=== PATIENT | female | born 1940 | race Caucasian/White ===

== ENCOUNTER 2016-09-02 06:23 | Inpatient (IN) ==
[2016-09-02] MEDS ORDERED: GI Cocktail 40 ML EACH PO ONE (06:32)
[2016-09-02 08:04] LABS: Hemoglobin 9.5 g/dL (11.5-15.4); Red Blood Count 3.17 M/mcL (3.82-4.97)
[2016-09-02 08:06] LABS: Basophils % 0.2 %; Eosinophils # 0.1 K/mcL (0.0-0.6); Eosinophils % 2.2 %; Hematocrit 29.6 % (35.3-44.9); Immature Granulocytes % 0.7 % (0-4); Immature Platelets 1.7 % (1.1-6.1); Lymphocytes # 0.8 K/mcL (0.6-4.6); Lymphocytes % 19.1 %; Mean Corpuscular HGB Conc 32.1 g/dL (31.6-35.5); Mean Corpuscular Volume 93.4 fL (83.0-100.0); Mean Platelet Volume 13.2 fL (9.4-12.4); Monocytes # 0.2 K/mcL (0.0-1.3); Monocytes % 5.5 %; Platelet Count 112 K/mcL (140-400); Red Cell Distribution Width 17.4 % (11.5-14.5); Segmented Neutrophils % 72.3 %
[2016-09-02 08:09] LABS: INR 1.1; Prothrombin Time 11.7 Seconds (9.4-12.1)
[2016-09-02] MEDS ORDERED: 0.9 % Sodium Chloride 1,000 ML IVC ONE ×2 (08:09→09:38)
[2016-09-02 08:11] LABS: Activated Partial Thrombo Time 30.7 Seconds (26.0-36.0)
[2016-09-02 08:19] LABS: Alanine Aminotransferase 20 Units/L (0-55); Albumin 3.3 g/dL (3.5-5.0); Albumin/Globulin Ratio 0.9 (1.1-2.2); Alkaline Phosphatase 83 Units/L (38-126); Amylase 2254 Units/L (25-125); Aspartate Amino Transferase 25 Units/L (5-34); BUN/Creatinine Ratio 30 (6-26); Bilirubin,Direct 0.2 mg/dL (0.0-0.5); Bilirubin,Indirect 0.3 mg/dL (0.0-1.2); Bilirubin,Total 0.5 mg/dL (0.2-1.2); Blood Urea Nitrogen 22 mg/dL (7-20); Calcium 9.3 mg/dL (8.6-10.8); Carbon Dioxide 26 mEq/L (19-29); Chloride 105 mEq/L (98-109); Globulin 3.8 g/dL (2.4-3.5); Glucose 114 mg/dL (70-99); Osmolality,Calculated 290 (280-300); Sodium 138 mEq/L (136-145); Total Protein 7.1 g/dL (6.0-8.3); eGFR For African Americans > 60 (> 60); eGFR For Non-African Americans > 60 (> 60)
--- NOTE | 2016-09-02 08:32 | Emergency Department Note ---
Disposition Clinical Impression: Pancreatitis, Abdominal pain Disposition: Admitted As Inpatient Condition: Fair Time of Disposition: 09:57 Abdominal Pain HPI - General Chief Complaint: ED Abdominal Pain Stated Complaint: epigastric pain Time Seen by Provider: 09/02/16 06:30 Source: patient Mode of arrival: private vehicle Limitations: no limitations Nursing Notes Reviewed: Yes Vital Signs Reviewed: Yes - History of Present Illness HPI Narrative: 75-year-old female patient presents to the emergency department complaining of epigastric abdominal pain. Patient states this began around midnight. She denies any new foods. She denies any fever, chills, nausea or vomiting. Patient has not had any similar episodes in the past. She denies any drug, alcohol or smoking. She denies any trauma. She denies any chest pain or back pain. She denies any malaise or dizziness or lightheadedness. Pt Subjective Complaint: abdominal pain Onset (ago): hour(s) Consistency: constant, Worsening Location: epigastric Pain Severity: moderate Pain Scale: 5 Quality: aching Radiation: none Migration to: no migration Improves with: nothing Worsens with: nothing Associated symptoms: Reports: denies other symptoms Treatments prior to arrival: none - Related Data Home Medications Medication Instructions Recorded Confirmed Ergocalciferol (VITAMIN D2) 50,000 unit PO QWEEK 09/02/16 09/02/16 [Vitamin D2] Ferrous Sulfate [Iron] 325 mg PO DAILY 09/02/16 09/02/16 Folic Acid 1 mg PO DAILY 09/02/16 09/02/16 HYDROcodone/Acet 5/325 mg [Welda 1 tab PO Q6H PRN 09/02/16 09/02/16 5-325 mg] Methotrexate [Otrexup] 15 mg PO QWEEK 09/02/16 09/02/16 Naproxen [Naprosyn] 500 mg PO BID 09/02/16 09/02/16 Pantoprazole Sodium [Pantoprazole 40 mg PO DAILY 09/02/16 09/02/16 Sodium] Allergies Allergy/AdvReac Type Severity Reaction Status Date / Time Sulfa (Sulfonamide AdvReac Rash Verified 09/02/16 10:43 Antibiotics) All systems ED: reviewed and negative except as stated. Constitutional: Denies: fever, chills Cardiovascular: Denies: chest pain, palpitations Respiratory: Denies: cough, dyspnea Gastrointestinal: Reports: abdominal pain. Denies: nausea, vomiting Genitourinary: Denies: urgency, dysuria, frequency Musculoskeletal: Denies: back pain, neck pain Integumentary: Denies: rash, abrasion, lesions Neurological: Denies: headache Abdominal Pain PMH - Past Medical History Medical history: Reports: arthritis Female Surgical History: Reports: appendectomy Psychiatric history: Reports: no psych history - Social History Smoking status: Never smoker Alcohol use: Reports: none Drug use: Reports: none Physical Exam - General Limitations: no limitations General appearance: alert, in no apparent distress - Head Head exam: atraumatic, normocephalic, normal inspection - Eye Eye exam: Present: normal appearance, PERRL - Neck Neck exam: Present: normal inspection, full ROM, trachea midline - Chest Chest inspection: Present: normal inspection, symmetric chest wall rise - Respiratory Respiratory exam: Present: normal lung sounds bilaterally. Absent: respiratory distress - Cardiovascular Cardiovascular exam: Present: regular rate, normal rhythm, normal heart sounds - Abdominal Exam Abdominal exam: Present: soft, tenderness. Absent: distention, guarding, rebound, rigidity Abdominal tenderness: Present: diffuse, mild - Extremities Exam Extremities exam: Present: normal inspection, full ROM. Absent: tenderness, pedal edema - Expanded Lower Extremity Exam Gait: observed and normal - Back Exam Back exam: Present: normal inspection, full ROM. Absent: tenderness - Neurological Exam Neurological exam: Present: alert, oriented X3 - Psychiatric Psychiatric exam: Present: normal affect, normal mood - Skin Skin exam: Present: warm, dry, intact, normal color Course - Consultations Consultation #1: I discussed this patient's case with the hospitalist, she accepts. Patient resting comfortably in no acute distress. Will be admitted for pancreatitis. Time: 10:34 Vital Signs Temperature 98.1 F 09/02/16 06:24 Pulse Rate 86 09/02/16 06:24 Respiratory Rate 16 09/02/16 06:24 Blood Pressure 177/79 09/02/16 06:24 O2 Sat by Pulse Oximetry 97 09/02/16 06:24 Temperature 97.7 F 09/02/16 11:11 Pulse Rate 73 09/02/16 11:11 Respiratory Rate 16 09/02/16 11:11 Blood Pressure 164/50 09/02/16 11:11 O2 Sat by Pulse Oximetry 98 09/02/16 11:11 Oxygen Delivery Oxygen Delivery Room Air Abdominal Pain - Lab Data Lab results reviewed: Yes I reviewed the patient's lab results. Result diagrams: 09/02/16 07:53 09/02/16 07:53 Lab Results 09/02/16 09/02/16 09/02/16 Range/Units 07:53 07:53 07:53 WBC 4.2 L (4.3-11.1) K/mcL RBC 3.17 L (3.82-4.97) M/mcL Hgb 9.5 L (11.5-15.4) g/dL Hct 29.6 L (35.3-44.9) % MCV 93.4 (83.0-100.0) fL MCH 30.0 (28.0-33.3) pg MCHC 32.1 (31.6-35.5) g/dL RDW 17.4 H (11.5-14.5) % Plt Count 112 L (140-400) K/mcL MPV 13.2 H (9.4-12.4) fL Immature Gran % 0.7 (0-4) % Seg Neutrophils % 72.3 % Lymphocytes % 19.1 % Monocytes % 5.5 % Eosinophils % 2.2 % Basophils % 0.2 % Neutrophils # 3.0 (1.6-8.9) K/mcL Lymphocytes # 0.8 (0.6-4.6) K/mcL Monocytes # 0.2 (0.0-1.3) K/mcL Eosinophils # 0.1 (0.0-0.6) K/mcL Basophils # 0.0 (0.0-0.2) K/mcL Immature Plt Fraction 1.7 (1.1-6.1) % PT 11.7 (9.4-12.1) Seconds INR 1.1 APTT 30.7 (26.0-36.0) Seconds Sodium 138 (136-145) mEq/L Potassium 4.0 (3.5-4.5) mEq/L Chloride 105 (98-109) mEq/L Carbon Dioxide 26 (19-29) mEq/L BUN 22 H (7-20) mg/dL Creatinine 0.73 (0.57-1.11) mg/dL Est GFR ( Amer) > 60 (> 60) Est GFR (Non-Af Amer) > 60 (> 60) BUN/Creatinine Ratio 30 H (6-26) Glucose 114 H (70-99) mg/dL Calculated Osmolality 290 (280-300) Calcium 9.3 (8.6-10.8) mg/dL Total Bilirubin 0.5 (0.2-1.2) mg/dL Direct Bilirubin 0.2 (0.0-0.5) mg/dL Indirect Bilirubin 0.3 (0.0-1.2) mg/dL AST 25 (5-34) Units/L ALT 20 (0-55) Units/L Alkaline Phosphatase 83 (38-126) Units/L Troponin I (0-0.03) ng/mL Serum Total Protein 7.1 (6.0-8.3) g/dL Albumin 3.3 L (3.5-5.0) g/dL Globulin 3.8 H (2.4-3.5) g/dL Albumin/Globulin Ratio 0.9 L (1.1-2.2) Amylase 2254 H (25-125) Units/L Lipase 47545 H (8-78) Units/L Urine Color (Yellow) Urine Clarity (Clear) Urine pH (5.0-8.0) pH Units Ur Specific [place] (1.010-1.025) Urine Protein (Neg-Trace) mg/dL Urine Glucose (UA) (Normal) mg/dL Urine Ketones (Negative) mg/dL Urine Blood (Negative) Urine Nitrite (Negative) Urine Bilirubin (Negative) Urine Urobilinogen (Normal) mg/dL Ur Leukocyte Esterase (Negative) Urine Microscopic RBC (0-3) per hpf Urine Microscopic WBC (0-3) per hpf Ur Squamous Epith Cells (None-Few) per lpf Urine Bacteria (None-Few) per hpf Hyaline Casts (None-Few) per lpf Ur Culture Indicated? (NO) 09/02/16 09/02/16 Range/Units 07:53 09:15 WBC (4.3-11.1) K/mcL RBC (3.82-4.97) M/mcL Hgb (11.5-15.4) g/dL Hct (35.3-44.9) % MCV (83.0-100.0) fL MCH (28.0-33.3) pg MCHC (31.6-35.5) g/dL RDW (11.5-14.5) % Plt Count (140-400) K/mcL MPV (9.4-12.4) fL Immature Gran % (0-4) % Seg Neutrophils % % Lymphocytes % % Monocytes % % Eosinophils % % Basophils % % Neutrophils # (1.6-8.9) K/mcL Lymphocytes # (0.6-4.6) K/mcL Monocytes # (0.0-1.3) K/mcL Eosinophils # (0.0-0.6) K/mcL Basophils # (0.0-0.2) K/mcL Immature Plt Fraction (1.1-6.1) % PT (9.4-12.1) Seconds INR APTT (26.0-36.0) Seconds Sodium (136-145) mEq/L Potassium (3.5-4.5) mEq/L Chloride (98-109) mEq/L Carbon Dioxide (19-29) mEq/L BUN (7-20) mg/dL Creatinine (0.57-1.11) mg/dL Est GFR ( Amer) (> 60) Est GFR (Non-Af Amer) (> 60) BUN/Creatinine Ratio (6-26) Glucose (70-99) mg/dL Calculated Osmolality (280-300) Calcium (8.6-10.8) mg/dL Total Bilirubin (0.2-1.2) mg/dL Direct Bilirubin (0.0-0.5) mg/dL Indirect Bilirubin (0.0-1.2) mg/dL AST (5-34) Units/L ALT (0-55) Units/L Alkaline Phosphatase (38-126) Units/L Troponin I 0.00 (0-0.03) ng/mL Serum Total Protein (6.0-8.3) g/dL Albumin (3.5-5.0) g/dL Globulin (2.4-3.5) g/dL Albumin/Globulin Ratio (1.1-2.2) Amylase (25-125) Units/L Lipase (8-78) Units/L Urine Color Yellow (Yellow) Urine Clarity Clear (Clear) Urine pH 7.5 (5.0-8.0) pH Units Ur Specific [place] 1.015 (1.010-1.025) Urine Protein Negative (Neg-Trace) mg/dL Urine Glucose (UA) Normal (Normal) mg/dL Urine Ketones Negative (Negative) mg/dL Urine Blood Trace H (Negative) Urine Nitrite Negative (Negative) Urine Bilirubin Negative (Negative) Urine Urobilinogen Normal (Normal) mg/dL Ur Leukocyte Esterase Negative (Negative) Urine Microscopic RBC 5-15 H (0-3) per hpf Urine Microscopic WBC 0-3 (0-3) per hpf Ur Squamous Epith Cells Moderate H (None-Few) per lpf Urine Bacteria None Seen (None-Few) per hpf Hyaline Casts None Seen (None-Few) per lpf Ur Culture Indicated? NO (NO) - Radiology Data Radiology results reviewed: Yes I reviewed the patient's radiology results. Attestation Statement - Attestation Attestation: Patient is a pleasant 75-year-old female who presents to the emergency Department today with complaints of moderate epigastric abdominal pain. Patient is also experiencing some nausea with this pain. Patient denies any chest pain, no migratory pain into the chest or lower abdomen, no bowel changes , no urinary symptoms or flank pain. Patient states she has had pancreatitis in the past and they have done extensive gallbladder testing and not found this to be contributing to her pancreatitis. She feels her last episode was maybe 4- 5 years ago. Exam she has mild tenderness to palpation in the epigastrium, no evidence of peritoneal signs, abdomen soft good bowel sounds. Remainder of exam appears unremarkable and patient is in no acute distress at bedside. We performed labs and obtain CT scan of the abdomen which showed changes consistent with acute pancreatitis, fluid collections were seen. We went ahead and initiated IV fluids, IV pain meds and antiemetics. At this time we are awaiting her lipase which is taking some considerable time to get back as we anticipate their rerunning it because the level is so high. Remainder of her hepatic panels within normal limits. I do not feel we need to repeat any additional gallbladder imaging emergently in the ER today based on her labs today. We will plan to admit the patient for further evaluation and treatment of her pancreatitis. Patient remained clinically stable throughout her ED course. I pesonally interviewed and examined this patient and my medical decision- making was reviewed with the KANU, Carmelo Fernandez. I agree with the documented findings, disposition and treatment plan as described except to the extent set forth below.
[2016-09-02] MEDS ORDERED: *HR* Morphine 2 MG/ML SYRINGE IV ONE (08:34)
[2016-09-02] MEDS ORDERED: Ondansetron 4 MG/2 ML VIAL IV ONE (08:34)
[2016-09-02 09:22] LABS: Lipase 13472 Units/L (8-78)
[2016-09-02 09:46] LABS: Bilirubin,Urine Negative (Negative); Blood,Urine Trace (Negative); Clarity,Urine Clear (Clear); Color,Urine Yellow (Yellow); Glucose,Urine (UA) Normal (Normal); Ketones,Urine Negative (Negative); Leukocyte Esterase,Urine Negative (Negative); Nitrite,Urine Negative (Negative); PH,Urine 7.5 pH Units (5.0-8.0); Protein,Urine Negative (Neg-Trace); Specific Gravity,Urine 1.015 (1.010-1.025); Urobilinogen,Urine Normal (Normal)
[2016-09-02 09:50] LABS: Bacteria,Urine None Seen per hpf (None-Few); Hyaline Casts,Urine None Seen per lpf (None-Few); Squamous Epithelial Cell,Urine Moderate per lpf (None-Few); WBC,Urine 0-3 per hpf (0-3)
--- NOTE | 2016-09-02 11:53 | Internal Med History&Physical ---
Date of Encounter: 09/02/16 Time of Encounter: 11:48 Assessment and Plan (1) Pancreatitis Current visit: Yes Status: Acute denies any abdominal pain at this time. abd CT shows pancreatic inflammation. will start conservative management, IVF , will advance diet as tolerated. pancreatitis ? from NSAIDS and methotrexate for her RA. lFTS appear to be normal, her CT abd also shows possible cholecystitis. will order GB US. Qualifiers: Chronicity: acute Pancreatitis type: unspecified pancreatitis type Acute pancreatitis complication: unspecified Qualified Code(s): K85.90 - Acute pancreatitis without necrosis or infection, unspecified (2) Rheumatoid arthritis Current visit: Yes Status: Acute follows with Dr. 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 Qualifiers: Rheumatoid arthritis location: multiple sites Rheumatoid factor presence: unspecified presence Qualified Code(s): M06.9 - Rheumatoid arthritis, unspecified (3) Abdominal pain Current visit: Yes Status: Resolved Qualifiers: Abdominal location: generalized Qualified Code(s): R10.84 - Generalized abdominal pain Internal Medicine - H&P: HPI Chief complaint: abdominal pain Admitted From: Home Plans for Post Hospital Care: Home History of present illness: Ms. Valenzuela is a 75 year old female with PMH rheumatoid arthritis who follows with Dr. Pena who presents to the emergency Department today with complaints of moderate epigastric abdominal pain. Patient is also experiencing some nausea with this pain. Patient denies any chest pain, no migratory pain into the chest or lower abdomen, no bowel changes, no urinary symptoms or flank pain. Patient states she has had pancreatitis in the past and they have done extensive gallbladder testing and not found this to be contributing to her pancreatitis. She feels her last episode was maybe 4-5 years ago. she denies any h/o alcohol intake, however she says she takes pain meds for her arthritis and she had a recent flare for which she had to take more pain meds. CT scan of the abdomen showed changes consistent with acute pancreatitis and possible cholecystitis. lipase elevated. Past Med Surg Social Fam HX - Past Medical History Medical history: GERD, kidney stones, migraine, RA, thyroid disease Psychiatric history: no psych history - Past Surgical History Surgical History: appendectomy, knee replacement - Social History Smoking Status: Former smoker Smokeless Tobacco Status: No Alcohol use: none Drug use: none - Family History Mother Family Member Ethnicity: Non- Living Status: Age at : 83 Cause of : heart related problems Hx Family Cardiac Disorders: Yes Hx Family Respiratory Disorders: No Hx Family Cancer: No Hx Family GI Disorders: No Hx Family Genitourinary Disorders: No Hx Family Endocrine Disorder: Yes (diabetes) Internal Medicine - H&P: Meds Ergocalciferol (VITAMIN D2) [Vitamin D2] 50,000 unit PO QWEEK 09/02/16 [History] Ferrous Sulfate [Iron] 325 mg PO DAILY 09/02/16 [History] Folic Acid 1 mg PO DAILY 09/02/16 [History] HYDROcodone/Acet 5/325 mg [Leopold 5-325 mg] 1 tab PO Q6H PRN 09/02/16 [History] Methotrexate [Otrexup] 15 mg PO QWEEK 09/02/16 [History] Naproxen [Naprosyn] 500 mg PO BID 09/02/16 [History] Pantoprazole Sodium [Pantoprazole Sodium] 40 mg PO DAILY 09/02/16 [History] Allergies Sulfa (Sulfonamide Antibiotics) Adverse Reaction (Verified 09/02/16 10:43) Rash All Systems PM: A 10-system review of systems was performed and is negative for pertinent findings except as documented above in the HPI. - Constitutional Vitals: Temp Pulse Resp BP Pulse Ox 97.7 F 73 16 164/50 98 09/02/16 11:11 09/02/16 11:11 09/02/16 11:11 09/02/16 11:11 09/02/16 11:11 General appearance: Present: A&O X 3, no acute distress Exam: neck- supple chest- b/l clear, no added sounds CVs-s1 and s2, no mr//g abd-soft, non tender, bs are present, no RUQ tenderness or noble's sign ext- no edema neuro- no focal defecits, alert and awake Internal Med - H&P Results - Labs CBC & Chem 7: 09/02/16 07:53 09/02/16 07:53
[2016-09-02] MEDS ORDERED: Ondansetron 4 MG/2 ML VIAL IVP PRN (12:04)
[2016-09-02] MEDS ORDERED: Naloxone 0.4 MG/ML INJ IVP PRN (12:04)
[2016-09-02] MEDS ORDERED: *HR* Morphine 2 MG/ML SYRINGE IVP PRN (12:04)
[2016-09-02] MEDS ORDERED: *HR* HYDROcodone/Acet 5/325 mg TABLET PO PRN (12:05)
[2016-09-02] MEDS: 0.9 % Sodium Chloride 1,000 ML IVC SCH ×2 (13:40→22:42)
[2016-09-02] MEDS: Pantoprazole 40 MG VIAL IVP SCH (14:33)
[2016-09-03 04:56] LABS: Basophils % 0.4 %; Eosinophils # 0.1 K/mcL (0.0-0.6); Eosinophils % 2.6 %; Hematocrit 26.1 % (35.3-44.9); Hemoglobin 8.4 g/dL (11.5-15.4); Immature Granulocytes % 0.4 % (0-4); Lymphocytes # 0.9 K/mcL (0.6-4.6); Lymphocytes % 38.5 %; Mean Corpuscular HGB Conc 32.2 g/dL (31.6-35.5); Mean Corpuscular Hemoglobin 30.5 pg (28.0-33.3); Mean Corpuscular Volume 94.9 fL (83.0-100.0); Mean Platelet Volume 8.2 fL (9.4-12.4); Monocytes # 0.1 K/mcL (0.0-1.3); Monocytes % 5.6 %; Neutrophils # 1.2 K/mcL (1.6-8.9); Red Blood Count 2.75 M/mcL (3.82-4.97); Red Cell Distribution Width 17.8 % (11.5-14.5); Segmented Neutrophils % 52.5 %
[2016-09-03 04:58] LABS: Platelet Count 73 K/mcL (140-400)
[2016-09-03] MEDS: *HR* Enoxaparin 40 MG/0.4 ML SYRINGE SQ SCH (05:11)
[2016-09-03 05:17] LABS: BUN/Creatinine Ratio 21 (6-26); Blood Urea Nitrogen 14 mg/dL (7-20); Calcium 8.2 mg/dL (8.6-10.8); Carbon Dioxide 24 mEq/L (19-29); Chloride 112 mEq/L (98-109); Glucose 82 mg/dL (70-99); Magnesium 1.6 mg/dL (1.6-2.6); Osmolality,Calculated 292 (280-300); Potassium 3.9 mEq/L (3.5-4.5); Sodium 141 mEq/L (136-145); eGFR For African Americans > 60 (> 60); eGFR For Non-African Americans > 60 (> 60)
[2016-09-03 05:26] LABS: Platelet Estimate Decreased (Normal)
[2016-09-03 05:27] LABS: Anisocytosis 1+ (Not Present)
[2016-09-03] MEDS ORDERED: *HR* Enoxaparin 30 MG/0.3 ML SYRINGE SQ SCH (06:00)
[2016-09-03] MEDS: 0.9 % Sodium Chloride 1,000 ML IVC SCH (07:00)
[2016-09-03 07:58] LABS: Amylase 600 Units/L (25-125); Chol/HDL Ratio 3.7 (0-4.9); Cholesterol 106 mg/dL (< 200); HDL Cholesterol 29 mg/dL (40-59); LDL Cholesterol,Calculated 62 mg/dL (0-99); Lipase 1017 Units/L (8-78); Triglycerides 76 mg/dL (< 150)
[2016-09-03] MEDS: Pantoprazole 40 MG VIAL IVP SCH (08:01)
[2016-09-03] MEDS: Folic Acid 1 MG TABLET PO SCH (08:01)
--- NOTE | 2016-09-03 10:35 | Internal Med Progress Note ---
Date of Encounter: 09/03/16 Time of Encounter: 09:00 - Assessment and plan (1) Pancreatitis Current Visit: Yes Status: Acute Assessment and plan: Acute pancreatitis with elevated lipase, amylase, CT imaging confirmed the inflammation in the pancreas. - Etiology is undetermined, US abd shows no cholelithiasis, patient is not alcoholic, TG is not high. - Patient had a similar pancreatitis 5 years ago. - Less likely medication induced that because patient just started MTX one year ago. - We will continue hydration, nothing by mouth, closely monitoring. Qualifiers: Chronicity: acute Pancreatitis type: unspecified pancreatitis type Acute pancreatitis complication: unspecified Qualified Code(s): K85.90 - Acute pancreatitis without necrosis or infection, unspecified (2) Acute cholecystitis Current Visit: Yes Status: Acute Assessment and plan: Acute cholecystitis without evidence of cholecystitis. - We will treat the patient with Cipro and Flagyl. - Keep nothing by mouth and IV fluid. - Closely monitor patient. (3) DVT prophylaxis Current Visit: Yes Status: Acute Assessment and plan: Lovenox subcutaneously (4) Abdominal pain Current Visit: Yes Status: Resolved Assessment and plan: Caused by acute pancreatitis and acute cholecystitis. Management as above. Qualifiers: Abdominal location: generalized Qualified Code(s): R10.84 - Generalized abdominal pain (5) Rheumatoid arthritis Current Visit: Yes Status: Acute Assessment and plan: Patient is following rheumatology as outpatient Qualifiers: Rheumatoid arthritis location: multiple sites Rheumatoid factor presence: unspecified presence Qualified Code(s): M06.9 - Rheumatoid arthritis, unspecified - Time Spent With Patient 25 - 35 minutes - Subjective Interval history: Patient is a 75-year-old female admitted for abdominal pain. Diagnosed as acute pancreatitis. Her past medical history is significant for kidney stones, RA, migraine, thyroid disease. Patient was seen and examined, she is awake, alert oriented 3. Complain less abdominal pain today. At the still tenderness on the right side. Us abdomen shows no evidence of cholelithiasis but acute cholecystitis. Will add antibiotic Cipro and Flagyl for cholecystitis. Continue nothing by mouth, IV fluids and closely monitoring. - Constitutional Vitals: Temp Pulse Resp BP Pulse Ox 98.0 F 82 18 141/66 97 09/03/16 07:55 09/03/16 07:55 09/03/16 07:55 09/03/16 07:55 09/03/16 07:55 General appearance: Present: A&O X 3, no acute distress - Head Head exam: Present: atraumatic, normocephalic - Eye Eye exam: Present: PERRL, conjuntiva pink, sclera anicteric Pupils: Present: PERRL - Neck Neck exam general surgery: Present: supple, trachea midline. Absent: lymphadenopathy - Respiratory Respiratory exam: Present: CTAB. Absent: accessory muscle use, rales, rhonchi, wheezes - Cardiovascular Cardiovascular exam: Present: RRR, +S1, +S2. Absent: diastolic murmur, gallop, rubs, systolic murmur - GI/Abdominal GI/Abdominal exam: Present: normal bowel sounds, rebound, soft, tenderness (RUQ) , no peritoneal signs. Absent: distended - Extremities Exam Extremities exam: Present: warm, radial pulses palpable and symetrical. Absent : calf tenderness, cyanotic, pedal edema Additional comments: deformation of hands and feet due to RA. - Neurological Exam Neurological exam: Present: CN II-XII intact, oriented X3, no focal deficits. Absent: pronater drift, facial droop, speech deficit - Skin Skin exam: Present: dry, intact Internal Medicine: Result - Labs CBC & Chem 7: 09/03/16 04:39 09/03/16 04:39 Labs: Short CBC 09/03/16 Range/Units 04:39 WBC 2.3 L (4.3-11.1) K/mcL Hgb 8.4 L (11.5-15.4) g/dL Hct 26.1 L (35.3-44.9) % Plt Count 73 L (140-400) K/mcL Neutrophils # 1.2 L (1.6-8.9) K/mcL BMP 09/03/16 04:39 Sodium 141 Potassium 3.9 Chloride 112 H Carbon Dioxide 24 BUN 14 Creatinine 0.68 Glucose 82 Calcium 8.2 L - ABG Interpretation ABG results: PT/INR, D-dimer PT 11.7 Seconds (9.4-12.1) 09/02/16 07:53 - Impressions Impressions Liver Ultrasound 09/03/16 00:00 IMPRESSION: Though there is no evidence of cholelithiasis, pericholecystic fluid is seen with sonographic Wild sign and borderline gallbladder wall thickening, for which acalculous cholecystitis could be considered in the appropriate clinical setting. Echogenic foci at the right kidney, compatible with calculi or postoperative change. D/ / Delmar Escobar MD / Delmar Escobar MD Interpreting Provider: Delmar Escobar MD Consult Discharge Plan - Plan Referrals: John Real Jr, MD [Primary Care Provider] -
[2016-09-03] MEDS: MetroNIDAZOLE 500 MG/100 ML 500 MG/100 ML BAG IVPB SCH (15:32)
[2016-09-03] MEDS ORDERED: 0.9 % Sodium Chloride 1,000 ML IVC SCH (16:45)
[2016-09-03] MEDS ORDERED: *HR* HYDROcodone/Acet 5/325 mg TABLET PO PRN (18:55)
--- NOTE | 2016-09-03 21:31 | Electrocardiograph Report ---
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
[2016-09-04] MEDS: MetroNIDAZOLE 500 MG/100 ML 500 MG/100 ML BAG IVPB SCH ×2 (00:04→07:32)
[2016-09-04] MEDS ORDERED: D5% in 0.9% NACL 1,000 ML IVC SCH ×2 (00:45→11:03)
[2016-09-04] MEDS: *HR* Enoxaparin 40 MG/0.4 ML SYRINGE SQ SCH (05:56)
[2016-09-04 06:06] LABS: Basophils % 0.4 %; Eosinophils # 0.1 K/mcL (0.0-0.6); Eosinophils % 3.2 %; Hematocrit 26.3 % (35.3-44.9); Hemoglobin 8.4 g/dL (11.5-15.4); Immature Granulocytes % 0.4 % (0-4); Lymphocytes # 0.8 K/mcL (0.6-4.6); Lymphocytes % 27.2 %; Mean Corpuscular HGB Conc 31.9 g/dL (31.6-35.5); Mean Corpuscular Hemoglobin 30.1 pg (28.0-33.3); Mean Corpuscular Volume 94.3 fL (83.0-100.0); Monocytes # 0.2 K/mcL (0.0-1.3); Monocytes % 5.3 %; Neutrophils # 1.8 K/mcL (1.6-8.9); Platelet Count 118 K/mcL (140-400); Red Blood Count 2.79 M/mcL (3.82-4.97); Red Cell Distribution Width 17.2 % (11.5-14.5); Segmented Neutrophils % 63.5 %
[2016-09-04 06:23] LABS: Amylase 149 Units/L (25-125); BUN/Creatinine Ratio 18 (6-26); Blood Urea Nitrogen 12 mg/dL (7-20); Calcium 8.3 mg/dL (8.6-10.8); Carbon Dioxide 22 mEq/L (19-29); Chloride 112 mEq/L (98-109); Glucose 89 mg/dL (70-99); Lipase 78 Units/L (8-78); Osmolality,Calculated 291 (280-300); Potassium 3.5 mEq/L (3.5-4.5); Sodium 141 mEq/L (136-145); eGFR For African Americans > 60 (> 60); eGFR For Non-African Americans > 60 (> 60)
[2016-09-04] MEDS: Folic Acid 1 MG TABLET PO SCH (07:32)
[2016-09-04] MEDS: Pantoprazole 40 MG VIAL IVP SCH (07:32)
--- NOTE | 2016-09-04 10:40 | Internal Med Progress Note ---
<Twin Mora - Last Filed: 09/04/16 17:19> Date of Encounter: 09/04/16 Time of Encounter: 09:00 - Assessment and plan (1) Pancreatitis Current Visit: Yes Status: Acute Assessment and plan: HOD #3 for acute pancreatitis with elevated lipase, amylase, with CT confirmation of inflammation in the pancreas. This is her second episode. Last epside approximately 5 years ago. PAtietn states cause was undetermined. -Etiology of pancreatitis is still undetermined at this point and time. US showed no evidence of cholelithiasis, patient dose not consume alcoholic and triglycerides were 76. Patient denies any family history of pancreatitis and denies owning any pets. Medication review dose show that she takes naprosyn and methotrexate. Which can rarely cause pancreatitis. - Amylase is 149 ( [place] [id number]) and Lipase is 78 today. - We will advance her diet today to a full liquid diet -We will continue hydration and will continue to monitor Will have her follow up with GI as outpatient. She dose have a history of RA. AIP? we will obtain IgG4 and discuss with rheumatology. Qualifiers: Chronicity: acute Pancreatitis type: unspecified pancreatitis type Acute pancreatitis complication: unspecified Qualified Code(s): K85.90 - Acute pancreatitis without necrosis or infection, unspecified (2) Acute cholecystitis Current Visit: Yes Status: Ruled-out Assessment and plan: - CT imaging showed cholecystitis, while Liver/Gallbladder US showed no evidence of cholelithiasis. US did show pericholecystic fluid with sonographic Wild sign and borderline gallbladder wall thickening. Normal LFTs. - I am not convinced this is acute acholecystitis, but rather inflammation secondary to her acute pancreatitis. - will D/C Ciprofloxacin and Flagyl today - Will order HIDA given the CT and US findings and potential for acalculous cholecystitis (3) Rheumatoid arthritis Current Visit: Yes Status: Acute Assessment and plan: - Patient is followed by Dr. Pena as an outpatient. - Prior to admission, has been on methotrexate 15mg q week along with Naproxen for this condition. Willl ask him for recommendations of ongoing treatment. Qualifiers: Rheumatoid arthritis location: multiple sites Rheumatoid factor presence: unspecified presence Qualified Code(s): M06.9 - Rheumatoid arthritis, unspecified (4) GERD (gastroesophageal reflux disease) Current Visit: Yes Status: Acute Assessment and plan: - Continue Protonix 40mg IV qday Qualifiers: Esophagitis presence: without esophagitis Qualified Code(s): K21.9 - Gastro -esophageal reflux disease without esophagitis (5) Anemia Current Visit: No Status: Chronic Assessment and plan: Chronic - Patient Hb today 8.4, while her baseline Hb is 9.0-9.5. -This appears to be a normocytic, normochromic anemia. -Patient is currently asymptomatic - There are no obvious signs of bleeding -check hematinics. Secondary to MTX? Qualifiers: Anemia type: unspecified type Qualified Code(s): D64.9 - Anemia, unspecified (6) Leukopenia Current Visit: No Status: Chronic Assessment and plan: - Leukopenia in the setting of RA on methotrexate as an outpatient. - WBC count since admission has been 4.2 (09/02), 2.3 (09/03) and 2.8 (09/04) - This is most likely secondary to her medication regimen for her RA. - Will continue to monitor. ANC 1800 Qualifiers: Leukopenia type: other Qualified Code(s): D72.818 - Other decreased white blood cell count (7) DVT prophylaxis Current Visit: Yes Status: Acute Assessment and plan: - Continue Lovenox 40mg SQ q day - Subjective Interval history: Patient was seen and examined at bedside this morning. Patient states she is feeling better. Denies any fever, chills, chest pain, dyspnea, abdominal pain, nausea, vomitting, dysuria or bowel or bladder changes. Patient states she has not had a bowel movement in 2 days; however, this is normal for her. Denies any other issues at this time. States she is hungry. All of the patient's questions were answered. She has no further complaints. - Constitutional Vitals: Temp Pulse Resp BP Pulse Ox 98.1 F 76 14 154/74 99 09/04/16 06:43 09/04/16 06:43 09/04/16 06:43 09/04/16 06:43 09/04/16 06:43 General appearance: Present: A&O X 3, no acute distress - Head Head exam: Present: atraumatic, normal inspection, normocephalic - Eye Eye exam: Present: normal appearance, sclera anicteric - ENT ENT exam: Present: mucous membranes moist, normal exam - Neck Neck exam general surgery: Present: normal inspection, supple, trachea midline. Absent: lymphadenopathy, tenderness, thyromegaly - Respiratory Respiratory exam: Present: CTAB. Absent: accessory muscle use, rales, respiratory distress, rhonchi, stridor, wheezes - Cardiovascular Cardiovascular exam: Present: RRR, +S1, +S2. Absent: bradycardia, diastolic murmur, JVD, rubs, systolic murmur, tachycardia - GI/Abdominal GI/Abdominal exam: Present: normal bowel sounds, soft, tenderness (mild tenderness to deep palpation of the epigastrium and right upper quadrant. ), no peritoneal signs. Absent: distended, firm, guarding, mass - Extremities Exam Additional comments: There is some warmth of the left elbow. - Expanded Upper Extremities Exam Hand wrist exam: Present: deformity (obvious swan neck derformities of her bilateral hands.Additionally there is ulnar deviation of her hands bilaterally. ) Vascular exam: Present: radial pulse right (2/4 and equal), radial pulse left (2 /4 and equal bilaterally) - Skin Skin exam: Present: dry, intact Internal Medicine: Result - Labs CBC & Chem 7: 09/04/16 05:21 09/04/16 05:21 Labs: Short CBC 09/04/16 Range/Units 05:21 WBC 2.8 L (4.3-11.1) K/mcL Hgb 8.4 L (11.5-15.4) g/dL Hct 26.3 L (35.3-44.9) % Plt Count 118 L D (140-400) K/mcL Neutrophils # 1.8 (1.6-8.9) K/mcL BMP 09/04/16 05:21 Sodium 141 Potassium 3.5 Chloride 112 H Carbon Dioxide 22 BUN 12 Creatinine 0.65 Glucose 89 Calcium 8.3 L - ABG Interpretation ABG results: PT/INR, D-dimer PT 11.7 Seconds (9.4-12.1) 09/02/16 07:53 Consult Discharge Plan - Plan Referrals: John Real Jr, MD [Primary Care Provider] - <Gabriela Mcgee - Last Filed: 09/04/16 18:33> Date of Encounter: 09/04/16 - Constitutional Vitals: Temp Pulse Resp BP Pulse Ox 98.1 F 67 14 174/65 98 09/04/16 14:38 09/04/16 14:38 09/04/16 14:38 09/04/16 14:38 09/04/16 14:38 Internal Medicine: Result - Labs CBC & Chem 7: 09/04/16 05:21 09/04/16 05:21 Labs: Short CBC 09/04/16 Range/Units 05:21 WBC 2.8 L (4.3-11.1) K/mcL Hgb 8.4 L (11.5-15.4) g/dL Hct 26.3 L (35.3-44.9) % Plt Count 118 L D (140-400) K/mcL Neutrophils # 1.8 (1.6-8.9) K/mcL BMP 09/04/16 05:21 Sodium 141 Potassium 3.5 Chloride 112 H Carbon Dioxide 22 BUN 12 Creatinine 0.65 Glucose 89 Calcium 8.3 L - ABG Interpretation ABG results: PT/INR, D-dimer PT 11.7 Seconds (9.4-12.1) 09/02/16 07:53 - Impressions Impressions Bile Acid Absorption NM 09/04/16 10:42 IMPRESSION: Delayed visualization of the gallbladder, for which chronic cholecystitis could be considered in the appropriate clinical setting. D/ / Delmar Escobar MD / Delmar Escobar MD Interpreting Provider: Delmar Escobar MD - Attending Attestation I examined this patient and reviewed laboratory, imaging and all diagnostic data. My medical decision-making was reviewed with Dr Mora - Resident Physician. I agree with the documented findings, disposition and treatment plan as described above
[2016-09-05 04:38] LABS: Basophils % 0.6 %; Eosinophils # 0.2 K/mcL (0.0-0.6); Eosinophils % 6.2 %; Hematocrit 28.7 % (35.3-44.9); Hemoglobin 9.4 g/dL (11.5-15.4); Immature Granulocytes % 0.6 % (0-4); Lymphocytes # 1.4 K/mcL (0.6-4.6); Lymphocytes % 42.1 %; Mean Corpuscular HGB Conc 32.8 g/dL (31.6-35.5); Mean Corpuscular Hemoglobin 30.3 pg (28.0-33.3); Mean Corpuscular Volume 92.6 fL (83.0-100.0); Mean Platelet Volume 12.9 fL (9.4-12.4); Monocytes # 0.2 K/mcL (0.0-1.3); Neutrophils # 1.6 K/mcL (1.6-8.9); Platelet Count 151 K/mcL (140-400); Red Cell Distribution Width 17.4 % (11.5-14.5); Segmented Neutrophils % 45.5 %
[2016-09-05 04:58] LABS: BUN/Creatinine Ratio 11 (6-26); Blood Urea Nitrogen 8 mg/dL (7-20); Calcium 9.1 mg/dL (8.6-10.8); Carbon Dioxide 24 mEq/L (19-29); Chloride 110 mEq/L (98-109); Glucose 103 mg/dL (70-99); Osmolality,Calculated 295 (280-300); Potassium 3.5 mEq/L (3.5-4.5); Sodium 143 mEq/L (136-145); eGFR For African Americans > 60 (> 60); eGFR For Non-African Americans > 60 (> 60)
--- NOTE | 2016-09-05 06:28 | Discharge Summary ---
<Twin Mora - Last Filed: 09/05/16 08:14> Date of Encounter: 09/05/16 Time of Encounter: 06:26 - Discharge Diagnosis (1) Pancreatitis Priority: Primary Status: Acute Qualifiers: Chronicity: acute Pancreatitis type: unspecified pancreatitis type Acute pancreatitis complication: unspecified Qualified Code(s): K85.90 - Acute pancreatitis without necrosis or infection, unspecified (2) Acute cholecystitis Priority: Secondary Status: Ruled-out (3) Rheumatoid arthritis Priority: Secondary Status: Acute Qualifiers: Rheumatoid arthritis location: multiple sites Rheumatoid factor presence: unspecified presence Qualified Code(s): M06.9 - Rheumatoid arthritis, unspecified (4) GERD (gastroesophageal reflux disease) Priority: Secondary Status: Acute Qualifiers: Esophagitis presence: without esophagitis Qualified Code(s): K21.9 - Gastro -esophageal reflux disease without esophagitis (5) Anemia Priority: Secondary Status: Chronic Qualifiers: Anemia type: unspecified type Qualified Code(s): D64.9 - Anemia, unspecified (6) Leukopenia Priority: Secondary Status: Chronic Qualifiers: Leukopenia type: other Qualified Code(s): D72.818 - Other decreased white blood cell count (7) DVT prophylaxis Priority: Secondary Status: Acute - Discharge Medications Prescriptions: Meloxicam [Mobic] 15 mg PO DAILY 30 Days Home Medications: Ergocalciferol (VITAMIN D2) [Vitamin D2] 50,000 unit PO QWEEK 09/02/16 [History] Ferrous Sulfate [Iron] 325 mg PO DAILY 09/02/16 [History] Folic Acid 1 mg PO DAILY 09/02/16 [History] HYDROcodone/Acet 5/325 mg [[place] 5-325 mg] 1 tab PO Q6H PRN 09/02/16 [History] Methotrexate [Otrexup] 15 mg PO QWEEK 09/02/16 [History] Pantoprazole Sodium 40 mg PO DAILY 09/02/16 [History] Meloxicam [Mobic] 15 mg PO DAILY 30 Days 09/05/16 [Rx] Allergies/Adverse Reactions: Allergies Sulfa (Sulfonamide Antibiotics) Adverse Reaction (Verified 09/02/16 10:43) Rash Procedures/tests Complete & Pending: Procedures Performed prior 72 hours Category Date Time Status NM hepatobiliary [NM] Stat Exams 04/18/17 10:42 Completed ECG 12 lead ECG [ECG] Routine Y 09/02/16 06:28 Completed Date of admission: 09/02/16 18:37 Primary care physician: John Real Jr, MD Discharging clinician: Twin Mora Anticipated date of discharge: 09/05/16 - Patient Status Disposition: Home, Self-Care Condition: Fair Functional capacity at discharge: independent ambulation Overall status at discharge: patient is progressing back to baseline - Discharge Instructions Instructions: Low Fat Diet (DC) Follow Up With: uN Drake ATHLETIC TRAINER [Advanced Practice Nurse] - 09/11/16 11:00 am - Diet and Activity Activity: increase activity as tolerated Diet: low fat, low cholesterol, low salt diet Hospital course: Ms. Valenzuela is a 75 year old female with RA who was admitted to [facility] on . She was admitted with acute pancreatitis. No obvious source was found. She had no gallstones, normal lipids and calcium. Possible source could be medications, and she dose not consume ETOH. She dose take Naproxen and MTX. however these only very rarely cause pancreatitis. We will have her stop Naproxen and sustitue with meloxicam. We will have her follow up with her conservation specialist as well ( doubt MTX as cause). She is also pancytopenic. However this is trending up. Likely secondary to MTX adn acute stress. Will have her repeat a CBC in a weeka nd follow with her PCP. 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 She has had one other case before that reportedly had no identifiable cause per the patient. This was approximately 5 years ago. We have ordered an IgG4 and will have her follow with GI. Today her vital signs are within normal llimits. She is pain free and tolerating a diet. No major abnormalities on lab work. She dose have pancytopenia that is mild and improving. We will discharge her home today. Patient voices back her understanding and agreement. - Time Spent with Patient Total time spent providing and/or coordinating discharge services: Greater than 30 minutes (I spent approximately 35 minutes discharging this patient.) - Constitutional Vitals: Temp Pulse Resp BP Pulse Ox 98.2 F 90 20 156/81 97 09/05/16 04:17 09/05/16 04:17 09/05/16 04:09/05/16 04:09/05/16 04:17 General appearance: Present: A&O X 3, no acute distress - Head Head exam: Present: atraumatic, normocephalic - Eye Eye exam: Present: PERRL, conjuntiva pink, sclera anicteric Pupils: Present: PERRL - Neck Neck exam general surgery: Present: supple, trachea midline. Absent: lymphadenopathy - Respiratory Respiratory exam: Present: CTAB. Absent: accessory muscle use, rales, rhonchi, wheezes - Cardiovascular Cardiovascular exam: Present: RRR, +S1, +S2. Absent: diastolic murmur, gallop, rubs, systolic murmur - GI/Abdominal GI/Abdominal exam: Present: normal bowel sounds, soft, no peritoneal signs. Absent: distended, tenderness - Extremities Exam Extremities exam: Present: warm, radial pulses palpable and symetrical. Absent : calf tenderness, cyanotic, pedal edema Additional comments: deformities of the hand with ulnar deviation of the MCP bilaterally. - Skin Skin exam: Present: dry, intact <Gabriela Mcgee - Last Filed: 09/05/16 16:10> Date of Encounter: 09/05/16 Procedures/tests Complete & Pending: Procedures Performed prior 72 hours Category Date Time Status NM hepatobiliary [NM] Stat Exams 09/04/16 10:42 Completed Date of admission: 09/02/16 18:37 Primary care physician: John Real Jr, MD Hospital course: Ms. Valenzuela is a 75 year old female - Time Spent with Patient Total time spent providing and/or coordinating discharge services: - Constitutional Vitals: Temp Pulse Resp BP Pulse Ox 98.0 F 81 16 161/75 97 09/05/16 06:55 09/05/16 06:55 09/05/16 06:55 09/05/16 06:55 09/05/16 06:55 - Attending Attestation I examined this patient and reviewed laboratory, imaging and all diagnostic data. My medical decision-making was reviewed with Dr Mora - Resident Physician. I agree with the documented findings, disposition and treatment plan as described above
[2016-09-05 06:56] VITALS: BP 161/75
[2016-09-05] MEDS: Folic Acid 1 MG TABLET PO SCH (08:25)
[2016-09-05] MEDS: Pantoprazole 40 MG VIAL IVP SCH (08:29)
[2016-09-07 08:01] LABS: ANA IgG by ELISA DETECTED (None Detected)
== END 2016-09-05 13:54 | disposition home or self-care (01) | DRG 439 ==
LOC: 3ANU 06:23 → EMEROO 06:23 → 3ANU 11:02 → SUATTDRO 18:37
PROVIDERS: ADMIT Internal Medicine Endocrinology, Diabetes & Metabolism; ATTEND Internal Medicine

== ENCOUNTER 2017-01-25 15:45 | Inpatient (IN) ==
[2017-01-25] MEDS ORDERED: Ondansetron 4 MG/2 ML VIAL IVP PRN (19:03)
[2017-01-25] MEDS ORDERED: Naloxone 0.4 MG/ML INJ IVP PRN (19:03)
[2017-01-25] MEDS ORDERED: *HR* Morphine 2 MG/ML SYRINGE IVP PRN (19:03)
--- NOTE | 2017-01-25 19:15 | Internal Med History&Physical ---
<Juliann Calderón M - Last Filed: 01/25/17 19:11> Date of Encounter: 01/25/17 Time of Encounter: 19:11 Assessment and Plan (1) Acute cholecystitis Current visit: Yes Status: Acute Patient presented with abdominal pain, nausea and vomiting. CT of abd/pelvis showed mild enhancement of gallbladder wall with pericholcystic fluid suspicious for acute cholecystitis, mildly dilated common bile duct measuring 9mm. LFTs elevated with Tbili of 2.53, ALT of 200, AST of 327, Alk phos of 125. Lipase was normal at 100. Dr. Mckeon of surgery consulted and plans a cholecystectomy. NPO IV fluids 0.9NS at 100mL/hr zofran prn for nausea, morphine PRN for abdominal pain Zosyn IVPB Check LFTs, amylase and lipase in addition to CBC and BMP with AM labs. Pre-op EKG at [facility] showed NSR. Patient reports [place] approximately 1/2 mile 2-3 times daily. Will get pre-op chest x-ray. (2) Nausea and vomiting Current visit: Yes Status: Acute Secondary to acute cholecystitis. Patient reports relief with zofran. IV fluids 0.9NS at 100mL/hr Zofran PRN for nausea and vomiting. Qualifiers: Vomiting type: cyclical vomiting Vomiting Intractability: non-intractable Qualified Code(s): G43.A0 - Cyclical vomiting, not intractable (3) Abdominal pain Current visit: Yes Status: Acute Patient with abdominal pain secondary to acute cholecystitis. IV morphine PRN for pain Narcan PRN for respiratory depression. Qualifiers: Abdominal location: epigastric Qualified Code(s): R10.13 - Epigastric pain (4) Rheumatoid arthritis Current visit: Yes Status: Chronic Patient with history of rheumatoid arthritis and is on methotrexate weekly. Qualifiers: Rheumatoid arthritis location: multiple sites Rheumatoid factor presence: unspecified presence Qualified Code(s): M06.9 - Rheumatoid arthritis, unspecified (5) DVT prophylaxis Current visit: Yes Status: Acute sequential compression devices. Internal Medicine - H&P: HPI Chief complaint: abdominal pain, nausea, vomiting Admitted From: Emergency Dept Plans for Post Hospital Care: Home History of present illness: Ms. Valenzuela is a 76 year old female with rheumatoid arthritis on methotrexate, GERD, history of kidney stones, history of pancreatitis presented to the emergency department of [facility] with complaints of abdominal pain, nausea and vomiting. Patient reports that yesterday at approximately 9 PM she developed acute abdominal pain in her epigastric area she describes as a burning pain. It was constant and radiated to both sides of her abdomen as well as up into her chest. She tried taking Protonix as well as vinegar which did not relieve the pain. She also had nausea which continued all night, and she vomited this morning. She also reports feeling chilled overnight. She denies any fever, sweats, body aches, chest pain, palpitations, shortness of breath. Evaluation of [facility] ER included a CT of the abdomen and pelvis which showed mild enhancement of the gallbladder wall with pericholecystic fluid suspicious for acute cholecystitis, as well as mildly dilated common bile duct measuring 9 mm. Her LFTs were elevated with T bili of 2.53, alkaline phosphatase of 125, ALT of 200, and AST of 327. Lipase was within normal limits at 100. White blood cell count was normal at 5.6. EKG showed normal sinus rhythm. [facility] emergency room physician discussed case with Dr. Mckeon of surgery as well as Dr. Bassett of the hospitalist group and she was accepted for admission here. On exam, patient alert and oriented, in no acute distress. Heart has regular rate and rhythm, lungs are clear bilaterally to auscultation. Abdomen is soft, tender to palpation diffusely, but more acutely over the epigastric area, with positive bowel sounds. No peripheral edema, peripheral pulses intact. Past Med Surg Social Fam HX - Past Medical History Medical history: GERD, kidney stones, migraine, RA, thyroid disease Psychiatric history: no psych history - Past Surgical History Surgical History: appendectomy, knee replacement - Social History Smoking Status: Former smoker (12 pack year history) Smokeless Tobacco Status: No Alcohol use: none Drug use: none - Family History Mother Family Member Ethnicity: Non- Living Status: Age at : 84 Hx Family Cardiac Disorders: Yes Hx Family Respiratory Disorders: No Hx Family Cancer: No Hx Family GI Disorders: No Hx Family Endocrine Disorder: Yes (diabetes) Father Living Status: Age at : 87 Hx Family Cancer: Yes Internal Medicine - H&P: Meds Ergocalciferol (VITAMIN D2) [Vitamin D2] 50,000 unit PO QWEEK 09/02/16 [History] Ferrous Sulfate [Iron] 325 mg PO DAILY 09/02/16 [History] Folic Acid 1 mg PO DAILY 09/02/16 [History] HYDROcodone/Acet 5/325 mg [[place] 5-325 mg] 1 tab PO Q6H PRN 09/02/16 [History] Methotrexate [Otrexup] 15 mg PO QWEEK 09/02/16 [History] Pantoprazole Sodium 40 mg PO DAILY 09/02/16 [History] Meloxicam [Mobic] 15 mg PO DAILY 30 Days 09/05/16 [Rx] 3 Allergy/AdvReac Type Severity Reaction Status Date / Time Sulfa (Sulfonamide AdvReac Rash Verified 09/02/16 10:43 Antibiotics) All Systems PM: A 10-system review of systems was performed and is negative for pertinent findings except as documented above in the HPI. - Constitutional Constitutional: chills, no fever(s), no night sweats - EENT Eyes: no change in vision, no discharge, no pain, no photophobia Ears: no ear discharge, no ear pain, no tinnitus Nose, mouth and throat: no dysphagia, no nasal discharge, no neck pain, no sore throat - Cardiovascular Cardiovascular ROS IM: no chest pain, no diaphoresis, no dyspnea, no lightheadedness, no palpitations, no syncope - Respiratory Respiratory: no cough, no dyspnea, no wheezing, no excessive phlegm production - Gastrointestinal Gastrointestinal: abdominal pain, nausea, vomiting, no diarrhea, no hematemesis , no hematochezia, no melena - Genitourinary Genitourinary: no change in urinary stream, no dysuria, no flank pain, no hematuria - Musculoskeletal Musculoskeletal ROS IM: no numbness, no tingling - Integumentary Integumentary IM: no rash, no unusual bruising - Neurological Neurological ROS: no confusion, no convulsions, no focal weakness, no numbness, no tingling, no tremor(s) - Hematologic/Lymphatic Hematologic/Lymphatic: no easy bruising - Head Head exam: Present: atraumatic, normocephalic - Eye Eye exam: Present: PERRL, conjuntiva pink, sclera anicteric Pupils: Present: PERRL - Neck Neck exam general surgery: Present: supple, trachea midline. Absent: lymphadenopathy - Respiratory Respiratory exam: Present: CTAB. Absent: accessory muscle use, rales, rhonchi, wheezes - Cardiovascular Cardiovascular exam: Present: RRR, +S1, +S2. Absent: diastolic murmur, gallop, rubs, systolic murmur - GI/Abdominal GI/Abdominal exam: Present: normal bowel sounds, soft, tenderness (diffuse, and more acutely over epigastric area), no peritoneal signs. Absent: distended - Extremities Exam Extremities exam: Present: warm, radial pulses palpable and symmetrical. Absent : calf tenderness, cyanotic, pedal edema - Neurological Exam Neurological exam: Present: CN II-XII intact, oriented X3, no focal deficits. Absent: pronater drift, facial droop, speech deficit - Skin Skin exam: Present: dry, intact Internal Med - H&P Results - Labs Labs: Labs from [facility] ER: WBC 5.6 Hgb 9.7 Hct 30.0 Plt 115 Na 139 K 3.9 Cl 103 CO2 28.5 BUN 20 Cr 1.00 Glu 147 Tbili 2.53 Alk phos 125 ALT 200 AST 327 Lipase 100 <Rico Bassett - Last Filed: 01/25/17 20:17> Date of Encounter: 01/25/17 Internal Medicine - H&P: HPI History of present illness: Ms. Valenzuela is a 76 year old female All Systems PM: A 10-system review of systems was performed and is negative for pertinent findings except as documented above in the HPI. - Constitutional Vitals: Temp Pulse Resp BP Pulse Ox 99.3 F 87 16 128/73 98 01/25/17 19:12 01/25/17 19:12 01/25/17 19:12 01/25/17 19:12 01/25/17 19:12 - Attending Attestation I independently obtained history and examined this patient and my medical decision-making was reviewed with the nurse practitioner, Juliann Calderón. I agree with the documented findings, disposition and treatment plan as described. My findings are summarized below: Patient reports mild abdominal soreness in the mid abdomen associated with nausea. On exam she is in no acute distress awake alert oriented heart is regular, S1 and S2 with no murmurs. Lungs are clear. Abdomen is soft and nontender Laboratory data reviewed from outside hospital: WBC count 5.4, bilirubin 2.5, lipase 100 which is within normal range for the lab. EKG shows normal sinus rhythm with normal axes and intervals no acute ST or T- wave changes. Plan: For acute cholecystitis we will admit the patient, treat her with IV fluids, IV Zosyn, morphine for pain, IV Protonix for GI prophylaxis, nothing by mouth. Consult surgery
[2017-01-25] MEDS ORDERED: Piperacillin/Tazobactam 3.375 GM in D5% in Water (Mini-Bag+) 100 ML IVPB SCH (21:00)
[2017-01-25] MEDS: 0.9 % Sodium Chloride 1,000 ML IVC SCH (21:04)
[2017-01-25] MEDS: Pantoprazole 40 MG VIAL IVP SCH (21:05)
[2017-01-26 06:11] LABS: Lymphocytes % 7.9 %; Red Cell Distribution Width 16.9 % (11.5-14.5)
[2017-01-26 06:12] LABS: Basophils % 0.2 %; Eosinophils % 0.2 %; Hematocrit 27.6 % (35.3-44.9); Hemoglobin 8.8 g/dL (11.5-15.4); Immature Granulocytes % 0.7 % (0-4); Lymphocytes # 0.4 K/mcL (0.6-4.6); Mean Corpuscular HGB Conc 31.9 g/dL (31.6-35.5); Mean Corpuscular Hemoglobin 30.4 pg (28.0-33.3); Mean Corpuscular Volume 95.5 fL (83.0-100.0); Mean Platelet Volume 13.3 fL (9.4-12.4); Monocytes # 0.1 K/mcL (0.0-1.3); Monocytes % 0.9 %; Red Blood Count 2.89 M/mcL (3.82-4.97); Segmented Neutrophils % 90.1 %
[2017-01-26 06:29] LABS: Alanine Aminotransferase 110 Units/L (0-55); Albumin 2.7 g/dL (3.5-5.0); Albumin/Globulin Ratio 0.7 (1.1-2.2); Alkaline Phosphatase 104 Units/L (38-126); Amylase 25 Units/L (25-125); Aspartate Amino Transferase 114 Units/L (5-34); BUN/Creatinine Ratio 17 (6-26); Bilirubin,Direct 1.6 mg/dL (0.0-0.5); Bilirubin,Indirect 0.8 mg/dL (0.0-1.2); Bilirubin,Total 2.4 mg/dL (0.2-1.2); Blood Urea Nitrogen 14 mg/dL (7-20); Calcium 8.5 mg/dL (8.6-10.8); Carbon Dioxide 26 mEq/L (19-29); Chloride 110 mEq/L (98-109); Globulin 3.9 g/dL (2.4-3.5); Glucose 119 mg/dL (70-99); Lipase < 10 Units/L (8-78); Osmolality,Calculated 294 (280-300); Potassium 4.1 mEq/L (3.5-4.5); Sodium 141 mEq/L (136-145); Total Protein 6.6 g/dL (6.0-8.3); eGFR For African Americans > 60 (> 60); eGFR For Non-African Americans > 60 (> 60)
[2017-01-26 06:35] LABS: Neutrophils # 4.9 K/mcL (1.6-8.9); Platelet Count 75 K/mcL (140-400)
[2017-01-26 06:37] LABS: Dohle Bodies Present (Not Present); Platelet Estimate Decreased (Normal)
--- NOTE | 2017-01-26 07:29 | Anesthesia Evaluation PreOp ---
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: Other (migraine LOPEZ's) Other Medical History: Renal (kidney stones), Thyroid, GERD, Other (rheumatoid arthritis) Anesthesia History: Past Anesthesia, Difficult Airway Alcohol Use: none Drug use: none Medications and Allergies Ergocalciferol (VITAMIN D2) [Vitamin D2] 50,000 unit PO QWEEK 09/02/16 [History] Ferrous Sulfate [Iron] 325 mg PO DAILY 09/02/16 [History] Folic Acid 1 mg PO DAILY 09/02/16 [History] HYDROcodone/Acet 5/325 mg [[place] 5-325 mg] 1 tab PO Q6H PRN 09/02/16 [History] Methotrexate [Otrexup] 15 mg PO QWEEK 09/02/16 [History] Pantoprazole Sodium 40 mg PO DAILY 09/02/16 [History] Meloxicam [Mobic] 15 mg PO DAILY 30 Days 09/05/16 [Rx] 3 Allergy/AdvReac Type Severity Reaction Status Date / Time piperacillin [From Zosyn] Allergy Hives Verified 01/25/17 21:35 tazobactam [From Zosyn] Allergy Hives Verified 01/25/17 21:35 Sulfa (Sulfonamide AdvReac Rash Verified 09/02/16 10:43 Antibiotics) - Meds/Allergy Pre-op Review Medications Reviewed: Yes Allergies Reviewed: Yes Beta Blockers on Current Med List: No Anesthesia Results - Labs 01/26/17 05:02 01/26/17 05:02 - Imaging EKG: report reviewed (09/02/2016 SR) Anesthesia Exam Vital Signs/O2 Sat/Glucose, Most Recent Temp Pulse Resp BP Pulse Ox 97.9 F 72 15 100/61 98 01/26/17 03:45 01/26/17 03:45 01/26/17 03:45 01/26/17 03:45 01/26/17 03:45 Blood Glucose* 132 Height: 5'3''/1.6 m Weight: 130 lbs/59 kg NPO (# of Hours): 8 Pain Scale: 0 Pain Scale Used: Numeric (1 - 10) - HEENT Pupil (Motor): EOMI Mallampati: II Teeth: Missing, Poor dentition (multiple broken/decayed teeth) Oral Opening: Greater than 3 - APPLICATIONS SYSTEM ANALYST LOC: Oriented APPLICATIONS SYSTEM ANALYST Motor: Normal RUE, Normal LUE, Normal RLE, Normal LLE, Normal Face APPLICATIONS SYSTEM ANALYST Sensory: Normal: RUE, LUE, RLE, LLE, Face - Cardiac Rhythm: Regular Murmur: None - Pulmonary Breath Sounds: bilateral Clear Respiratory Effort: Symmetrical Anesthesia Assess/Plan ASA Score: 2 Modified Cat Scale for Level of Consciousness: Cooperative, oriented, and tranquil Anesthetic Plan: General Monitoring Plan: Standard Monitors Recovery Plan: PACU
[2017-01-26] MEDS: Pantoprazole 40 MG VIAL IVP SCH (08:55)
[2017-01-26] MEDS: Hydrocortisone Sodium Succ 100 MG/2 ML VIAL IVP SCH ×2 (08:56)
[2017-01-26] MEDS ORDERED: *HR* FentaNYL (PF) 100 MCG/2 ML VIAL ONE (10:23)
[2017-01-26] MEDS ORDERED: *HR* Propofol 200 MG/20 ML VIAL IVP ONE (10:24)
[2017-01-26] MEDS ORDERED: *HR* Morphine 10 MG/ML VIAL ONE (10:24)
[2017-01-26] MEDS ORDERED: *HR* Rocuronium Bromide 50 MG/5 ML VIAL ONE (10:24)
[2017-01-26] MEDS ORDERED: Lidocaine -MPF 2% 2 ML VIAL ONE (10:24)
[2017-01-26] MEDS ORDERED: Clindamycin 600 MG/50 ML 600 MG/50 ML IV.SOLN IVPB ONE ×2 (10:32→11:11)
--- NOTE | 2017-01-26 10:33 | Operative Note ---
Date of procedure: 01/26/17 Pre-op diagnosis: Acute cholecystitis Post-op diagnosis: same Procedure: Laparoscopic cholecystectomy with cholangiogram Anesthesia: OPAL Surgeon: Papa Mckeon Estimated blood loss (cc): 5 Specimen: GB Condition: stable Disposition: same day Procedure in Detail: After informed consent the patient was taken to the operating room. After adequate sedation anesthesia the abdomen was prepped and draped. A proper timeout was performed. Two towel clamps to place the umbilicus. A varies needle was placed at the umbilicus and a pneumo-peritoneum was created. A 12 mm incision was made at the umbilicus and a port was placed under direct visualization. An 8 mm incision was created in the left upper quadrant, followed by one in the right upper quadrant. There were 2 individual 8 mm cannulas then placed agrees incisions. An additional 5 mm cannula was created in the right lower quadrant. The robot was docked over the patients head. A alligator clamp was then placed on the gallbladder was retracted anteriorly and cephalad. The robot was connected to the wart sites. A grasper and hook were through the 2 robotic arms. Preoperatively the patient had been given indo- cyanine green. The infundibulum of the gallbladder was identified and the cystic duct was skeletonized. Utilizing the ICG I was able to identify the cystic duct, common hepatic duct, and common bile duct. Once the structures were identified the cystic duct was clipped twice proximally and once distally. Cystic duct was then transected. The gallbladder was then resected off the liver surface. The ICG was again utilized to identify any abberrant ductwork in the liver bed, there was none noted. Once the gallbladder was fully resected from the liver surface, the liver was gently irrigated and suctioned dry. We ensured hemostasis prior to removing the gallbladder through the umbilical port. Pneumoperitoneum was then evacuated. The 12 mm cannula site was closed with a 0-Vicryl suture in [id number] fashion. The port sites were injected with half percent Marcaine 30 mL. The skin was closed with 4-0 Vicryl suture and Dermabond. All instrument counts and needle counts were correct at the end of the case. The pt was taken to recovery in stable condition.
[2017-01-26] MEDS ORDERED: Ringers Solution, Lactated 1,000 ML IVC SCH (11:15)
[2017-01-26] MEDS ORDERED: Ondansetron 4 MG/2 ML VIAL ONE (11:22)
[2017-01-26] MEDS ORDERED: Dexamethasone 4 MG/ML VIAL ONE (11:22)
[2017-01-26] MEDS ORDERED: Neostigmine Methylsulfate 3 MG/3 ML SYRINGE ONE (11:23)
--- NOTE | 2017-01-26 12:30 | Anesthesia Evaluation Post Op ---
Date of Encounter: 01/26/17 Time of Encounter: 12:29 - Vital Signs Vital Signs: Vital Signs/O2 Sat, Most Current Temp Pulse Resp BP Pulse Ox 97.9 F 80 16 145/65 94 01/26/17 12:21 01/26/17 12:21 01/26/17 12:21 01/26/17 12:01/26/17 12:21 - Lungs Lungs: Clear Ascult./Percussion - Airway Airway: Non-obstructed - Cardiovascular Regular Rate - Mental Status Mental Status: Asleep with brisk response to light stimulation - Pain Pain Scale: 2 Pain Scale used: Numeric (1 - 10) - Nausea Vomiting Nausea Vomiting: Not Present - Hydration Hydration: Ice chips, Has not voided - Discharge PostOp Status: Transfer Patient to floor
[2017-01-26] MEDS ORDERED: Naloxone 0.4 MG/ML INJ IVP PRN (12:44)
[2017-01-26] MEDS ORDERED: Ondansetron 4 MG/2 ML VIAL IVP PRN (12:44)
[2017-01-26] MEDS: 0.9 % Sodium Chloride 1,000 ML IVC SCH ×2 (13:34→21:35)
[2017-01-26] MEDS: *HR* Morphine 2 MG/ML SYRINGE IVP PRN (13:34)
[2017-01-26] MEDS ORDERED: Hydrocortisone Sodium Succ 100 MG/2 ML VIAL IVP SCH (16:00)
--- NOTE | 2017-01-26 18:17 | Internal Med Progress Note ---
Date of Encounter: 01/26/17 Time of Encounter: 08:00 - Assessment and plan (1) Thrombocytopenia Current Visit: Yes Status: Acute Assessment and plan: We will monitor. Avoid anticoagulation due to heightened risk of bleeding. (2) Elevated LFTs Current Visit: Yes Status: Acute Assessment and plan: Possibly secondary to CBD obstruction due to stone, stricture, etc. Monitor LFTs. Patient will have cholecystectomy with intraoperative cholangiogram done today. (3) Rheumatoid arthritis Current Visit: Yes Status: Chronic Assessment and plan: Continue methotrexate. Continue naproxen. Qualifiers: Rheumatoid arthritis location: multiple sites Rheumatoid factor presence: unspecified presence Qualified Code(s): M06.9 - Rheumatoid arthritis, unspecified (4) Acute cholecystitis Current Visit: Yes Status: Acute Assessment and plan: Patient was treated with IV Zosyn and however she did have an allergic reaction and therefore Zosyn was stopped. Currently her abdominal exam is benign she has nontoxic, afebrile and her white count is normal. She will have cholecystectomy done this morning and therefore I will hold off from any antibiotic treatment. We will reevaluate after the surgical procedure. (5) GERD (gastroesophageal reflux disease) Current Visit: No Status: Acute Assessment and plan: IV Protonix daily. Qualifiers: Esophagitis presence: without esophagitis Qualified Code(s): K21.9 - Gastro -esophageal reflux disease without esophagitis (6) Anemia Current Visit: No Status: Chronic Assessment and plan: Monitor H&H. Transfuse as necessary for hemoglobin below 7.0 Qualifiers: Anemia type: unspecified type Qualified Code(s): D64.9 - Anemia, unspecified - Subjective Interval history: Patient admitted yesterday with abdominal pain and elevated LFTs. Currently reports that abdominal pain has resolved, no associated nausea or vomiting. No fevers overnight. - Constitutional Vitals: Temp Pulse Resp BP Pulse Ox 98.2 F 97 14 117/64 91 01/26/17 15:45 01/26/17 15:45 01/26/17 15:45 01/26/17 15:45 01/26/17 15:45 - Eye Eye exam: Present: PERRL, conjuntiva pink, sclera anicteric Pupils: Present: PERRL - Respiratory Respiratory exam: Present: CTAB. Absent: accessory muscle use, rales, rhonchi, wheezes - Cardiovascular Cardiovascular exam: Present: RRR, +S1, +S2. Absent: diastolic murmur, gallop, rubs, systolic murmur - GI/Abdominal GI/Abdominal exam: Present: normal bowel sounds, soft, no peritoneal signs. Absent: distended, tenderness - Extremities Exam Extremities exam: Present: warm, radial pulses palpable and symmetrical. Absent : calf tenderness, cyanotic, pedal edema - Skin Skin exam: Present: dry, intact Internal Medicine: Result - Labs CBC & Chem 7: 01/26/17 05:02 01/26/17 05:02 Labs: Short CBC 01/26/17 Range/Units 05:02 WBC 5.4 (4.3-11.1) K/mcL Hgb 8.8 L (11.5-15.4) g/dL Hct 27.6 L (35.3-44.9) % Plt Count 75 L (140-400) K/mcL Neutrophils # 4.9 (1.6-8.9) K/mcL BMP 01/26/17 05:02 Sodium 141 Potassium 4.1 Chloride 110 H Carbon Dioxide 26 BUN 14 Creatinine 0.81 Glucose 119 H Calcium 8.5 L Liver Function 01/26/17 Range/Units 05:02 Total Bilirubin 2.4 H (0.2-1.2) mg/dL Direct Bilirubin 1.6 H (0.0-0.5) mg/dL AST 114 H (5-34) Units/L ALT 110 H (0-55) Units/L Alkaline Phosphatase 104 (38-126) Units/L Albumin 2.7 L (3.5-5.0) g/dL - Impressions Impressions Chest X-Ray 01/25/17 19:08 IMPRESSION: Minimal blunting of the left costophrenic sulcus likely represents a tiny effusion or pleural thickening. Otherwise, no acute cardiopulmonary disease. Sclerotic lesion in the right proximal humerus is unchanged. D/ / Fei Sands MD / Fei Sands MD Interpreting Provider: Fei Sands MD Cholangiogram,Operative 01/26/17 00:00 IMPRESSION: 1. No evidence of choledocholithiasis. D/ / Kemal Cintron MD / Kemal Cintron MD Interpreting Provider: Kemal Cintron MD - VTE Documentation of Mechanical Device: Intermittent pneumatic compression device Consult Discharge Plan - Plan Referrals: John Real Jr, MD [Primary Care Provider] -
[2017-01-27 03:44] LABS: Basophils % 0.2 %; Lymphocytes # 0.5 K/mcL (0.6-4.6); Lymphocytes % 7.6 %; Mean Corpuscular Volume 94.9 fL (83.0-100.0); Red Cell Distribution Width 17.2 % (11.5-14.5)
[2017-01-27 03:46] LABS: Hemoglobin 7.5 g/dL (11.5-15.4); Immature Granulocytes % 1.8 % (0-4); Immature Platelets 2.5 % (1.1-6.1); Mean Corpuscular HGB Conc 31.3 g/dL (31.6-35.5); Mean Corpuscular Hemoglobin 29.6 pg (28.0-33.3); Monocytes # 0.3 K/mcL (0.0-1.3); Monocytes % 5.1 %; Neutrophils # 5.2 K/mcL (1.6-8.9); Platelet Count 70 K/mcL (140-400); Red Blood Count 2.53 M/mcL (3.82-4.97); Segmented Neutrophils % 85.3 %
[2017-01-27 03:59] LABS: Alanine Aminotransferase 70 Units/L (0-55); Albumin 2.3 g/dL (3.5-5.0); Albumin/Globulin Ratio 0.6 (1.1-2.2); Alkaline Phosphatase 89 Units/L (38-126); Aspartate Amino Transferase 53 Units/L (5-34); BUN/Creatinine Ratio 27 (6-26); Bilirubin,Total 1.3 mg/dL (0.2-1.2); Blood Urea Nitrogen 22 mg/dL (7-20); Calcium 8.5 mg/dL (8.6-10.8); Carbon Dioxide 22 mEq/L (19-29); Chloride 112 mEq/L (98-109); Globulin 3.6 g/dL (2.4-3.5); Glucose 132 mg/dL (70-99); Osmolality,Calculated 295 (280-300); Potassium 4.1 mEq/L (3.5-4.5); Sodium 140 mEq/L (136-145); Total Protein 5.9 g/dL (6.0-8.3); eGFR For African Americans > 60 (> 60); eGFR For Non-African Americans > 60 (> 60)
[2017-01-27] MEDS: Pantoprazole 40 MG VIAL IVP SCH (08:31)
[2017-01-27] MEDS: 0.9 % Sodium Chloride 1,000 ML IVC SCH (08:31)
[2017-01-27 12:03] LABS: Bilirubin,Urine Moderate (Negative); Blood,Urine Trace (Negative); Clarity,Urine Clear (Clear); Color,Urine Orange (Yellow); Glucose,Urine (UA) Normal (Normal); Ketones,Urine Negative (Negative); Leukocyte Esterase,Urine Negative (Negative); Nitrite,Urine Negative (Negative); PH,Urine 5.5 pH Units (5.0-8.0); Protein,Urine 30 mg/dL (Neg-Trace); Specific Gravity,Urine 1.029 (1.010-1.025); Urobilinogen,Urine Normal (Normal)
[2017-01-27 12:06] LABS: Bacteria,Urine None Seen per hpf (None-Few); Hyaline Casts,Urine None Seen per lpf (None-Few); Squamous Epithelial Cell,Urine Few per lpf (None-Few); WBC,Urine 0-3 per hpf (0-3)
[2017-01-27] MEDS ORDERED: Acetaminophen 325 MG TABLET PO PRN (15:36)
--- NOTE | 2017-01-27 17:22 | General Surgery Progress Note ---
Date of Encounter: 01/28/17 Time of Encounter: 17:20 - Assessment and Plan (1) Acute cholecystitis Current Visit: Yes Status: Acute POD #1 laparoscopic cholecystectomy Advance diet as tolerated Supportive care/pain control- ultram added Increase activity as tolerated- ambulate hallways TID with assistance Continue surgical drain IS every 1 hour while awake PPI therapy daily (2) DVT prophylaxis Current Visit: Yes Status: Acute Ambulate hallways TID with assistance EPCDs to bilateral lower extremities for DVT prophylaxis Subjective Patient reports: feels better, still having pain (surgical pain), pain is less, tolerating liquids well (full liquids), voiding w/o difficulty, flatus, no bowel movement, afebrile Objective Vital Signs - Last 8 Hours Temp Pulse Resp BP Pulse Ox 01/27/17 14:51 100.6 F H 120 14 119/58 94 01/27/17 11:51 99.8 F H 110 16 108/65 95 Intake and Output 01/27/17 01/27/17 01/27/17 07:59 15:59 23:59 Intake Total 1000 / 1000 Output Total 0 / 0 340 / 340 Balance 1000 / 1000 -340 / -340 Intake: IV Fluids 1000 / 1000 0.9 % Sodium Chloride 1, 1000 / 1000 000 ML @ 100 mls/hr IVC . Q10H MARIA L Rx#:[id number] Oral 0 / 0 Output: Urine 0 / 0 300 / 300 Wound Drainage 40 / 40 RLQ 40 / 40 Other: Weight 60.2 kg Patient Weight 01/27/17 23:59 Weight 60.2 kg - General physical appearance well developed, well nourished, no distress - Eyes normal ocular movement - ENT normal mucosa, atraumatic, normocephalic - Neck Neck exam: trachea midline - Respiratory normal respiratory effort, clear to auscultation - Cardiovascular Cardiovascular exam: Present: tachycardia - Abdomen Abdomen: Present: bowel sounds present, soft, tender (expected post-operative tenderness), wound (surgical drain with serousang. drainage noted) - Neurologic CN 2-12 grossly intact - Psychiatric oriented to time, oriented to person, oriented to place, speech is normal, memory intact - Labs 01/28/17 04:28 01/28/17 04:28 Diabetes panel 01/27/17 Range/Units 03:36 Sodium 140 (136-145) mEq/L Potassium 4.1 (3.5-4.5) mEq/L Chloride 112 H (98-109) mEq/L Carbon Dioxide 22 (19-29) mEq/L BUN 22 H (7-20) mg/dL Creatinine 0.81 (0.57-1.11) mg/dL Glucose 132 H (70-99) mg/dL Calcium 8.5 L (8.6-10.8) mg/dL AST 53 H (5-34) Units/L ALT 70 H (0-55) Units/L Alkaline Phosphatase 89 (38-126) Units/L Albumin 2.3 L (3.5-5.0) g/dL Calcium panel 01/27/17 Range/Units 03:36 Calcium 8.5 L (8.6-10.8) mg/dL Albumin 2.3 L (3.5-5.0) g/dL Pituitary panel 01/27/17 Range/Units 03:36 Sodium 140 (136-145) mEq/L Potassium 4.1 (3.5-4.5) mEq/L Chloride 112 H (98-109) mEq/L Carbon Dioxide 22 (19-29) mEq/L BUN 22 H (7-20) mg/dL Creatinine 0.81 (0.57-1.11) mg/dL Glucose 132 H (70-99) mg/dL Calcium 8.5 L (8.6-10.8) mg/dL Adrenal panel 01/27/17 Range/Units 03:36 Sodium 140 (136-145) mEq/L Potassium 4.1 (3.5-4.5) mEq/L Chloride 112 H (98-109) mEq/L Carbon Dioxide 22 (19-29) mEq/L BUN 22 H (7-20) mg/dL Creatinine 0.81 (0.57-1.11) mg/dL Glucose 132 H (70-99) mg/dL Calcium 8.5 L (8.6-10.8) mg/dL Total Bilirubin 1.3 H (0.2-1.2) mg/dL AST 53 H (5-34) Units/L ALT 70 H (0-55) Units/L Alkaline Phosphatase 89 (38-126) Units/L Albumin 2.3 L (3.5-5.0) g/dL - VTE Documentation of Mechanical Device: Intermittent pneumatic compression device Consult Discharge Plan - Plan Referrals: John Real Jr, MD [Primary Care Provider] - - Attending Attestation For this encounter, I have reviewed the PROPOSAL MANAGER WRITER or PA documentation, treatment plan, and medical decision making; and I have had face to face time with this patient.
--- NOTE | 2017-01-27 17:47 | Internal Med Progress Note ---
Date of Encounter: 01/27/17 Time of Encounter: 10:00 - Assessment and plan (1) Thrombocytopenia Current Visit: Yes Status: Acute Assessment and plan: We will monitor. Avoid anticoagulation due to heightened risk of bleeding. (2) Elevated LFTs Current Visit: Yes Status: Acute Assessment and plan: 01/27/2017: Total bili, AST and ALT are trending down. I discussed this case with general surgeon Dr. Mckeon. He recommended consultation with GI for possible ERCP on Saturday. I will keep her nothing by mouth after midnight. 01/26/2017: Possibly secondary to CBD obstruction due to stone, stricture, etc. Monitor LFTs. Patient will have cholecystectomy with intraoperative cholangiogram done today. (3) Rheumatoid arthritis Current Visit: Yes Status: Chronic Assessment and plan: Continue methotrexate. Continue naproxen. Qualifiers: Rheumatoid arthritis location: multiple sites Rheumatoid factor presence: unspecified presence Qualified Code(s): M06.9 - Rheumatoid arthritis, unspecified (4) Acute cholecystitis Current Visit: Yes Status: Acute Assessment and plan: 01/27/2017: Status post laparoscopic cholecystectomy. Tolerated the procedure well. Bilirubin trending down. Continue postop care. 01/26/2017: Patient was treated with IV Zosyn and however she did have an allergic reaction and therefore Zosyn was stopped. Currently her abdominal exam is benign she has nontoxic, afebrile and her white count is normal. She will have cholecystectomy done this morning and therefore I will hold off from any antibiotic treatment. We will reevaluate after the surgical procedure. (5) GERD (gastroesophageal reflux disease) Current Visit: No Status: Acute Assessment and plan: IV Protonix daily. Qualifiers: Esophagitis presence: without esophagitis Qualified Code(s): K21.9 - Gastro -esophageal reflux disease without esophagitis (6) Anemia Current Visit: No Status: Chronic Assessment and plan: Monitor H&H. Transfuse as necessary for hemoglobin below 7.0 Qualifiers: Anemia type: unspecified type Qualified Code(s): D64.9 - Anemia, unspecified (7) Dysuria Current Visit: Yes Status: Acute Assessment and plan: Check urinalysis with reflex culture by straight catheter. - Subjective Interval history: 01/27/2017: She reports abdominal pain and incisional tenderness. Denies associated nausea or vomiting. Additionally she reported to the nurse that she was having a lot of burning with urination. 01/26/2017: Patient admitted yesterday with abdominal pain and elevated LFTs. Currently reports that abdominal pain has resolved, no associated nausea or vomiting. No fevers overnight. - Constitutional Vitals: Temp Pulse Resp BP Pulse Ox 100.6 F H 120 14 119/58 94 01/27/17 14:51 01/27/17 14:51 01/27/17 14:51 01/27/17 14:51 01/27/17 14:51 - Eye Eye exam: Present: PERRL, conjuntiva pink, sclera anicteric Pupils: Present: PERRL - Respiratory Respiratory exam: Present: CTAB. Absent: accessory muscle use, rales, rhonchi, wheezes - Cardiovascular Cardiovascular exam: Present: RRR, +S1, +S2. Absent: diastolic murmur, gallop, rubs, systolic murmur - GI/Abdominal GI/Abdominal exam: Present: normal bowel sounds, soft, no peritoneal signs. Absent: distended, tenderness Additional comments: Abdominal incisions look closed with no discharge bleeding or surrounding erythema. There is some mild incisional tenderness. - Extremities Exam Extremities exam: Present: warm, radial pulses palpable and symmetrical. Absent : calf tenderness, cyanotic, pedal edema Internal Medicine: Result - Labs CBC & Chem 7: 01/27/17 03:36 01/27/17 03:36 Labs: Short CBC 01/27/17 Range/Units 03:36 WBC 6.1 (4.3-11.1) K/mcL Hgb 7.5 L (11.5-15.4) g/dL Hct 24.0 L (35.3-44.9) % Plt Count 70 L (140-400) K/mcL Neutrophils # 5.2 (1.6-8.9) K/mcL BMP 01/27/17 03:36 Sodium 140 Potassium 4.1 Chloride 112 H Carbon Dioxide 22 BUN 22 H Creatinine 0.81 Glucose 132 H Calcium 8.5 L Liver Function 01/27/17 Range/Units 03:36 Total Bilirubin 1.3 H (0.2-1.2) mg/dL AST 53 H (5-34) Units/L ALT 70 H (0-55) Units/L Alkaline Phosphatase 89 (38-126) Units/L Albumin 2.3 L (3.5-5.0) g/dL Urine 01/27/17 Range/Units 11:48 Urine Color [place] A (Yellow) Urine Clarity Clear (Clear) Urine pH 5.5 (5.0-8.0) pH Units Ur Specific [place] 1.029 H (1.010-1.025) Urine Protein 30 H (Neg-Trace) mg/dL Urine Glucose (UA) Normal (Normal) mg/dL - VTE Documentation of Mechanical Device: Intermittent pneumatic compression device Consult Discharge Plan - Plan Referrals: John Real Jr, MD [Primary Care Provider] -
[2017-01-27] MEDS: traMADol 50 MG TABLET PO PRN (19:20)
[2017-01-28 04:42] LABS: Hemoglobin 7.8 g/dL (11.5-15.4); Red Cell Distribution Width 17.7 % (11.5-14.5)
[2017-01-28 04:44] LABS: Basophils % 0.1 %; Eosinophils % 0.4 %; Hematocrit 25.2 % (35.3-44.9); Immature Granulocytes % 1.6 % (0-4); Immature Platelets 3.7 % (1.1-6.1); Lymphocytes # 0.9 K/mcL (0.6-4.6); Lymphocytes % 13.3 %; Mean Corpuscular Hemoglobin 29.2 pg (28.0-33.3); Mean Corpuscular Volume 94.4 fL (83.0-100.0); Monocytes # 0.3 K/mcL (0.0-1.3); Monocytes % 4.5 %; Neutrophils # 5.4 K/mcL (1.6-8.9); Red Blood Count 2.67 M/mcL (3.82-4.97); Segmented Neutrophils % 80.1 %
[2017-01-28 04:57] LABS: Alanine Aminotransferase 44 Units/L (0-55); Albumin 2.1 g/dL (3.5-5.0); Albumin/Globulin Ratio 0.6 (1.1-2.2); Alkaline Phosphatase 104 Units/L (38-126); Aspartate Amino Transferase 28 Units/L (5-34); BUN/Creatinine Ratio 29 (6-26); Blood Urea Nitrogen 21 mg/dL (7-20); Calcium 8.7 mg/dL (8.6-10.8); Carbon Dioxide 25 mEq/L (19-29); Chloride 113 mEq/L (98-109); Globulin 3.7 g/dL (2.4-3.5); Glucose 101 mg/dL (70-99); Osmolality,Calculated 299 (280-300); Potassium 3.9 mEq/L (3.5-4.5); Sodium 143 mEq/L (136-145); Total Protein 5.8 g/dL (6.0-8.3); eGFR For African Americans > 60 (> 60); eGFR For Non-African Americans > 60 (> 60)
[2017-01-28 05:18] LABS: Platelet Count 72 K/mcL (140-400)
[2017-01-28 05:20] LABS: Anisocytosis 1+ (Not Present); Platelet Estimate Decreased (Normal); Reactive Lymphocytes Present (Not Present); Schistocytes 1+ (Not Present)
[2017-01-28] MEDS: Pantoprazole 40 MG VIAL IVP SCH (09:44)
[2017-01-28] MEDS: *HR* Morphine 2 MG/ML SYRINGE IVP PRN ×2 (09:46→13:10)
--- NOTE | 2017-01-28 11:27 | Gastroenterology Consult Note ---
<SammyAbdoulaye littlejohn - Last Filed: 01/28/17 17:53> Date of Encounter: 01/28/17 Time of Encounter: 11:23 - Assessment and plan (1) Abdominal pain Current Visit: Yes Status: Acute Assessment and plan: s/p laproscopic cholecystectomy with intraoperative cholangiogram. surgery on board. intraoperative cholangiogram showed no evidence of choledocolithiasis. patient states her abdominal pain is drastically improved compared to admission. Plan: LFTs and T. Bili have normalized, intraoperative cholangiogram unremarkable. NO ERCP at this time. JUDAH drain output shows bile mixed with blood. will continue to monitor and will do ERCP later if indicated. may resume prior diet. Qualifiers: Abdominal location: epigastric Qualified Code(s): R10.13 - Epigastric pain (2) Acute cholecystitis Current Visit: Yes Status: Acute Assessment and plan: management per primary team and surgery. (3) Elevated LFTs Current Visit: Yes Status: Resolved Assessment and plan: resolved. - Time Spent With Patient Total time spent is greater than 50% in coordination of care (as documented) at patient's floor/unit and/or counseling patient: GI History of Present Illness - Data of Consult Consult date: 01/28/17 Requesting Physician: Demar Prather MD - Consult Narrative History of present illness: Ms. Valenzuela is a 76 year old female with PMHx of GERD, kidney stones, pancreatits. she arrived to [facility] on 01/25/17 with CC of nasuea, vomting, acute epigastric burning pain. pain is constant and rates to both sides of abdomen and up into the chest. work up at [facility] ED showed cholecystitis and transaminitis, and mildly dilated common bile duct measuring 9mm. patient is status post laproscopic cholecystectomy on 01/26/[address] GI was consulted for possible ERCP. Today, patient states she feels a lot better and her abdominal pain is drastically improved. she denies nausea, vomiting, diarrhea, fever, chills. she admits to some chest tihtness. denies shortnes sof breath. she denies blood in her stool or blood in her urine. she denies any further complaints today. Past Med Surg Social Fam HX - Past Medical History Medical history: GERD, kidney stones, migraine, RA, thyroid disease Psychiatric history: no psych history - Past Surgical History Surgical History: appendectomy, knee replacement - Social History Smoking Status: Former smoker (12 pack year history) Smokeless Tobacco Status: No Alcohol use: none Drug use: none - Family History Mother Family Member Ethnicity: Non- Living Status: Age at : 84 Hx Family Cardiac Disorders: Yes Hx Family Respiratory Disorders: No Hx Family Cancer: No Hx Family GI Disorders: No Hx Family Endocrine Disorder: Yes (diabetes) Father Living Status: Age at : 87 Hx Family Cancer: Yes All systems PM: reviewed and no additional remarkable complaints except as stated - Constitutional Vitals: Temp Pulse Resp BP Pulse Ox 98.9 F 96 15 113/72 95 01/28/17 10:53 01/28/17 10:53 01/28/17 10:53 01/28/17 10:53 01/28/17 10:53 General appearance: Present: A&O X 3, pleasant, no acute distress, answers questions appropriately - Head Head exam: Present: atraumatic, normocephalic - Neck Neck exam general surgery: Present: supple, trachea midline - Respiratory Respiratory exam: Present: CTAB - Cardiovascular Cardiovascular exam: Present: irregular rhythm, +S1, +S2 - GI/Abdominal GI/Abdominal exam: Present: hypoactive bowel sounds, soft, tenderness (expected post op tenderness.). Absent: distended Additional comments: surgical scars clean, dry, intact - Extremities Exam Extremities exam: Absent: cyanotic, pedal edema Additional comments: patient has ulnar deviation present on both upper and lower extremities. - Neurological Exam Neurological exam: Present: alert, oriented X3, no focal deficits - Psychiatric Psychiatric exam: Present: normal affect, normal mood Results - Labs CBC & Chem 7: 01/28/17 04:28 01/28/17 04:28 Labs: Last Result Calcium 8.7 mg/dL (8.6-10.8) 01/28/17 04:28 Entire Visit Hgb 7.8 g/dL (11.5-15.4) L 01/28/17 04:28 Hct 25.2 % (35.3-44.9) L 01/28/17 04:28 Total Bilirubin 1.0 mg/dL (0.2-1.2) 01/28/17 04:28 AST 28 Units/L (5-34) 01/28/17 04:28 ALT 44 Units/L (0-55) 01/28/17 04:28 Amylase 25 Units/L (25-125) 01/26/17 05:02 Lipase < 10 Units/L (8-78) 01/26/17 05:02 Consult Discharge Plan - Plan Instructions: Barry-Gamboa Drain Care (DC), Laparoscopic Cholecystectomy (DC) Additional Instructions: -No lifting, pulling, pushing, greater than 15 pounds for 2 weeks. -Okay to climb stairs. -May resume driving when you have been off narcotics for 24 hours and you are safe to react in the car. -You may shower beginning today. Wash the incisions daily with soap and water and pat dry. -Suspend your JUDAH drain to a lanyard or string to prevent it from dangling while in the shower. -No swimming, tough bath, or soaking for 2 weeks. -Return to the office for follow-up as directed. -Report any increase in discomfort or any new fevers greater than 101.5 degrees and signs of infection such as redness, swelling, or drainage from the incisions. -Take colace while on narcotics. May hold for loose stool. Referrals: John Real Jr, MD [Primary Care Provider] - Angelika iLm CNP [Advanced Practice Nurse] - 02/12/17 1:00 pm <Pete Sandhu - Last Filed: 01/28/17 17:55> Date of Encounter: 01/28/17 Time of Encounter: 14:40 - Time Spent With Patient Total time spent is greater than 50% in coordination of care (as documented) at patient's floor/unit and/or counseling patient: GI History of Present Illness - Data of Consult Requesting Physician: Demar Prather MD - Consult Narrative History of present illness: Ms. Valenzuela is a 76 year old female - Constitutional Vitals: Temp Pulse Resp BP Pulse Ox 98.5 F 108 15 113/87 98 01/28/17 14:42 01/28/17 14:42 01/28/17 14:42 01/28/17 14:42 01/28/17 14:42 Results - Labs CBC & Chem 7: 01/28/17 04:28 01/28/17 04:28 Labs: Last Result Calcium 8.7 mg/dL (8.6-10.8) 01/28/17 04:28 Entire Visit Hgb 7.8 g/dL (11.5-15.4) L 01/28/17 04:28 Hct 25.2 % (35.3-44.9) L 01/28/17 04:28 Total Bilirubin 1.0 mg/dL (0.2-1.2) 01/28/17 04:28 AST 28 Units/L (5-34) 01/28/17 04:28 ALT 44 Units/L (0-55) 01/28/17 04:28 Amylase 25 Units/L (25-125) 01/26/17 05:02 Lipase < 10 Units/L (8-78) 01/26/17 05:02 - Attending Attestation I examined this patient and my medical decision-making was reviewed with the Resident Physician. I agree with the documented findings, disposition and treatment plan as described except to the extent set forth below.
[2017-01-28] MEDS: traMADol 50 MG TABLET PO PRN (11:30)
--- NOTE | 2017-01-28 14:12 | General Surgery Progress Note ---
Date of Encounter: 01/28/17 Time of Encounter: 14:10 - Assessment and Plan (1) Acute cholecystitis Current Visit: Yes Status: Acute s/p Lap moy with IOC and JUDAH drain placement 01/26/2017 - continue supportive care and discomfort management, will add schedule toradol and PRN norco for better pain control. Ok to take Tylenol with PRN meds as long as not to exceed 1G of acetaminophen Q4 hours -full liquid diet advance as tolerated -Encouraged IS and at least 3 times daily -Continue PPI prophylaxis -Noted GI consult and no plans for ERCP at this time -Bedside RN to perform education regarding drain care for home. Pt states she has help at home to care for drain and assist in her care. (2) Pancreatitis Current Visit: No Status: Acute See plan above Qualifiers: Chronicity: acute Pancreatitis type: unspecified pancreatitis type Acute pancreatitis complication: unspecified Qualified Code(s): K85.90 - Acute pancreatitis without necrosis or infection, unspecified (3) Rheumatoid arthritis Current Visit: Yes Status: Chronic Management per medicine Qualifiers: Rheumatoid arthritis location: multiple sites Rheumatoid factor presence: unspecified presence Qualified Code(s): M06.9 - Rheumatoid arthritis, unspecified (4) DVT prophylaxis Current Visit: Yes Status: Acute Management per medicine (5) GERD (gastroesophageal reflux disease) Current Visit: No Status: Acute See above Qualifiers: Esophagitis presence: without esophagitis Qualified Code(s): K21.9 - Gastro -esophageal reflux disease without esophagitis (6) Anemia Current Visit: No Status: Chronic VSS, NAD, will continue to monitor. repeat am labs per medicine. Qualifiers: Anemia type: unspecified type Qualified Code(s): D64.9 - Anemia, unspecified Subjective Patient reports: no new complaints, feels better, still having pain, pain is less, tolerating liquids well, voiding w/o difficulty, flatus, no bowel movement , afebrile Objective Vital Signs - Last 8 Hours Temp Pulse Resp BP Pulse Ox 01/28/17 10:53 98.9 F 96 15 113/72 95 01/28/17 07:24 97.8 F 104 16 144/73 95 Intake and Output 01/27/17 01/28/17 01/28/17 23:59 07:59 15:59 Intake Total 60 / 60 0 / 0 0 / 0 Output Total 600 / 600 300 / 300 745 / 745 Balance -540 / -540 -300 / -300 -745 / -745 Intake: Oral 60 / 60 0 / 0 0 / 0 Output: Urine 600 / 600 300 / 300 675 / 675 Wound Drainage 0 / 0 70 / 70 RLQ 0 / 0 70 / 70 Other: Meal Dinner NPO Weight 56.427 kg Blood Glucose* 104 97 Patient Weight 01/28/17 23:59 Weight 56.427 kg - General physical appearance well developed, well nourished, no distress - Eyes normal ocular movement - ENT normal mucosa, atraumatic, normocephalic - Neck Neck exam: no masses, no venous distension - Respiratory normal expansion, normal respiratory effort, clear to auscultation - Cardiovascular Cardiovascular exam: Present: irregular rhythm, no murmurs/rubs/gallops - Abdomen Abdomen: Present: bowel sounds present, soft, tender (Expected postoperative), wound (RLQ JUDAH drain, clean, dry, and intact. Aprox 50 ml dark SS fluid noted in JUDAH drain.) - Incision Incision: Present: clean and dry, intact - Integumentary no rash - Neurologic CN 2-12 grossly intact - Musculoskeletal other (some hand deformities noted) - Psychiatric oriented to time, oriented to person, oriented to place, speech is normal, memory intact - Labs 01/28/17 04:28 01/28/17 04:28 Diabetes panel 01/28/17 Range/Units 04:28 Sodium 143 (136-145) mEq/L Potassium 3.9 (3.5-4.5) mEq/L Chloride 113 H (98-109) mEq/L Carbon Dioxide 25 (19-29) mEq/L BUN 21 H (7-20) mg/dL Creatinine 0.73 (0.57-1.11) mg/dL Glucose 101 H (70-99) mg/dL Calcium 8.7 (8.6-10.8) mg/dL AST 28 (5-34) Units/L ALT 44 (0-55) Units/L Alkaline Phosphatase 104 (38-126) Units/L Albumin 2.1 L (3.5-5.0) g/dL Calcium panel 01/28/17 Range/Units 04:28 Calcium 8.7 (8.6-10.8) mg/dL Albumin 2.1 L (3.5-5.0) g/dL Pituitary panel 01/28/17 Range/Units 04:28 Sodium 143 (136-145) mEq/L Potassium 3.9 (3.5-4.5) mEq/L Chloride 113 H (98-109) mEq/L Carbon Dioxide 25 (19-29) mEq/L BUN 21 H (7-20) mg/dL Creatinine 0.73 (0.57-1.11) mg/dL Glucose 101 H (70-99) mg/dL Calcium 8.7 (8.6-10.8) mg/dL Adrenal panel 01/28/17 Range/Units 04:28 Sodium 143 (136-145) mEq/L Potassium 3.9 (3.5-4.5) mEq/L Chloride 113 H (98-109) mEq/L Carbon Dioxide 25 (19-29) mEq/L BUN 21 H (7-20) mg/dL Creatinine 0.73 (0.57-1.11) mg/dL Glucose 101 H (70-99) mg/dL Calcium 8.7 (8.6-10.8) mg/dL Total Bilirubin 1.0 (0.2-1.2) mg/dL AST 28 (5-34) Units/L ALT 44 (0-55) Units/L Alkaline Phosphatase 104 (38-126) Units/L Albumin 2.1 L (3.5-5.0) g/dL - VTE Documentation of Mechanical Device: Intermittent pneumatic compression device Consult Discharge Plan - Plan Instructions: Barry-Gamboa Drain Care (DC), Laparoscopic Cholecystectomy (DC) Additional Instructions: -No lifting, pulling, pushing, greater than 15 pounds for 2 weeks. -Okay to climb stairs. -May resume driving when you have been off narcotics for 24 hours and you are safe to react in the car. -You may shower beginning today. Wash the incisions daily with soap and water and pat dry. -Suspend your JUDAH drain to a lanyard or string to prevent it from dangling while in the shower. -No swimming, tough bath, or soaking for 2 weeks. -Return to the office for follow-up as directed. -Report any increase in discomfort or any new fevers greater than 101.5 degrees and signs of infection such as redness, swelling, or drainage from the incisions. -Take colace while on narcotics. May hold for loose stool. Referrals: John Real Jr, MD [Primary Care Provider] - Angelika Lim CNP [Advanced Practice Nurse] - 02/12/17 1:00 pm
[2017-01-28] MEDS ORDERED: *HR* HYDROcodone/Acet 5/325 mg TABLET PO PRN ×2 (14:15→14:38)
[2017-01-28] MEDS ORDERED: traMADol 50 MG TABLET PO PRN ×2 (14:17→14:39)
[2017-01-28] MEDS: Ketorolac 15 MG/ML VIAL IVP SCH (18:33)
--- NOTE | 2017-01-28 18:44 | Internal Med Progress Note ---
Date of Encounter: 01/28/17 Time of Encounter: 10:42 - Assessment and plan (1) Thrombocytopenia Current Visit: Yes Status: Acute Assessment and plan: We will monitor. Avoid anticoagulation due to heightened risk of bleeding. (2) Elevated LFTs Current Visit: Yes Status: Resolved Assessment and plan: 01/28/2017: Bilirubin trending down to normal. I discussed the case with GI recommends that she does not need ERCP or MRCP. 01/27/2017: Total bili, AST and ALT are trending down. I discussed this case with general surgeon Dr. Mckeon. He recommended consultation with GI for possible ERCP on Saturday. I will keep her nothing by mouth after midnight. 01/26/2017: Possibly secondary to CBD obstruction due to stone, stricture, etc. Monitor LFTs. Patient will have cholecystectomy with intraoperative cholangiogram done today. (3) Rheumatoid arthritis Current Visit: Yes Status: Chronic Assessment and plan: Continue methotrexate. Continue naproxen. Qualifiers: Rheumatoid arthritis location: multiple sites Rheumatoid factor presence: unspecified presence Qualified Code(s): M06.9 - Rheumatoid arthritis, unspecified (4) Acute cholecystitis Current Visit: Yes Status: Acute Assessment and plan: 01/28/2017: Status post cholecystectomy postoperative day 2. Continue postoperative care. Advance diet. Incentive spirometry. Patient has been afebrile, nontoxic. No report of gangrenous cholecystitis or intra-abdominal abscess formation and therefore she does not require antibiotics. 01/27/2017: Status post laparoscopic cholecystectomy. Tolerated the procedure well. Bilirubin trending down. Continue postop care. 01/26/2017: Patient was treated with IV Zosyn and however she did have an allergic reaction and therefore Zosyn was stopped. Currently her abdominal exam is benign she has nontoxic, afebrile and her white count is normal. She will have cholecystectomy done this morning and therefore I will hold off from any antibiotic treatment. We will reevaluate after the surgical procedure. (5) GERD (gastroesophageal reflux disease) Current Visit: No Status: Acute Assessment and plan: IV Protonix daily. Qualifiers: Esophagitis presence: without esophagitis Qualified Code(s): K21.9 - Gastro -esophageal reflux disease without esophagitis (6) Anemia Current Visit: No Status: Chronic Assessment and plan: Monitor H&H. Transfuse as necessary for hemoglobin below 7.0 Qualifiers: Anemia type: unspecified type Qualified Code(s): D64.9 - Anemia, unspecified (7) Dysuria Current Visit: Yes Status: Acute Assessment and plan: 01/28/2017: Urinalysis is negative. No evidence of UTI. No antibiotics needed. 01/27/2017 Check urinalysis with reflex culture by straight catheter. - Subjective Interval history: 01/28/2017: Postoperative day 2. Abdominal pain has improved. She has not passed a bowel movement but passing gas. She is nothing by mouth for possible ERCP. Denies nausea or vomiting. 01/27/2017: She reports abdominal pain and incisional tenderness. Denies associated nausea or vomiting. Additionally she reported to the nurse that she was having a lot of burning with urination. 01/26/2017: Patient admitted yesterday with abdominal pain and elevated LFTs. Currently reports that abdominal pain has resolved, no associated nausea or vomiting. No fevers overnight. - Constitutional Vitals: Temp Pulse Resp BP Pulse Ox 98.5 F 108 15 113/87 98 01/28/17 14:42 01/28/17 14:42 01/28/17 14:42 01/28/17 14:42 01/28/17 14:42 - Eye Eye exam: Present: PERRL, conjuntiva pink, sclera anicteric Pupils: Present: PERRL - Respiratory Respiratory exam: Present: CTAB. Absent: accessory muscle use, rales, rhonchi, wheezes - Cardiovascular Cardiovascular exam: Present: RRR, +S1, +S2. Absent: diastolic murmur, gallop, rubs, systolic murmur - GI/Abdominal GI/Abdominal exam: Present: normal bowel sounds, soft, no peritoneal signs. Absent: distended, tenderness - Skin Skin exam: Present: dry, intact Internal Medicine: Result - Labs CBC & Chem 7: 01/28/17 04:28 01/28/17 04:28 Labs: Short CBC 01/28/17 Range/Units 04:28 WBC 6.7 (4.3-11.1) K/mcL Hgb 7.8 L (11.5-15.4) g/dL Hct 25.2 L (35.3-44.9) % Plt Count 72 L (140-400) K/mcL Neutrophils # 5.4 (1.6-8.9) K/mcL BMP 01/28/17 04:28 Sodium 143 Potassium 3.9 Chloride 113 H Carbon Dioxide 25 BUN 21 H Creatinine 0.73 Glucose 101 H Calcium 8.7 Liver Function 01/28/17 Range/Units 04:28 Total Bilirubin 1.0 (0.2-1.2) mg/dL AST 28 (5-34) Units/L ALT 44 (0-55) Units/L Alkaline Phosphatase 104 (38-126) Units/L Albumin 2.1 L (3.5-5.0) g/dL - VTE Documentation of Mechanical Device: Intermittent pneumatic compression device Consult Discharge Plan - Plan Instructions: Barry-Gamboa Drain Care (DC), Laparoscopic Cholecystectomy (DC) Additional Instructions: -No lifting, pulling, pushing, greater than 15 pounds for 2 weeks. -Okay to climb stairs. -May resume driving when you have been off narcotics for 24 hours and you are safe to react in the car. -You may shower beginning today. Wash the incisions daily with soap and water and pat dry. -Suspend your JUDAH drain to a lanyard or string to prevent it from dangling while in the shower. -No swimming, tough bath, or soaking for 2 weeks. -Return to the office for follow-up as directed. -Report any increase in discomfort or any new fevers greater than 101.5 degrees and signs of infection such as redness, swelling, or drainage from the incisions. -Take colace while on narcotics. May hold for loose stool. Referrals: John Real Jr, MD [Primary Care Provider] - Angelika Lim CNP [Advanced Practice Nurse] - 02/12/17 1:00 pm
[2017-01-28] MEDS: 0.9 % Sodium Chloride 1,000 ML IVC SCH (23:11)
[2017-01-29] MEDS: Ketorolac 15 MG/ML VIAL IVP SCH ×4 (00:21→18:17)
[2017-01-29 04:52] LABS: Alanine Aminotransferase 34 Units/L (0-55); Albumin 2.2 g/dL (3.5-5.0); Albumin/Globulin Ratio 0.5 (1.1-2.2); Alkaline Phosphatase 107 Units/L (38-126); Aspartate Amino Transferase 20 Units/L (5-34); BUN/Creatinine Ratio 32 (6-26); Basophils % 0.1 %; Bilirubin,Total 0.9 mg/dL (0.2-1.2); Blood Urea Nitrogen 26 mg/dL (7-20); Calcium 8.6 mg/dL (8.6-10.8); Carbon Dioxide 22 mEq/L (19-29); Chloride 109 mEq/L (98-109); Eosinophils # 0.1 K/mcL (0.0-0.6); Eosinophils % 0.5 %; Globulin 4.1 g/dL (2.4-3.5); Glucose 67 mg/dL (70-99); Hematocrit 25.9 % (35.3-44.9); Hemoglobin 8.3 g/dL (11.5-15.4); Immature Granulocytes % 1.5 % (0-4); Immature Platelets 3.4 % (1.1-6.1); Lymphocytes # 0.9 K/mcL (0.6-4.6); Mean Corpuscular Hemoglobin 30.2 pg (28.0-33.3); Mean Corpuscular Volume 94.2 fL (83.0-100.0); Monocytes # 0.6 K/mcL (0.0-1.3); Nucleated Red Blood Cells 0.2 /100 WBC (0); Osmolality,Calculated 297 (280-300); Potassium 3.7 mEq/L (3.5-4.5); Red Blood Count 2.75 M/mcL (3.82-4.97); Red Cell Distribution Width 18.3 % (11.5-14.5); Segmented Neutrophils % 82.9 %; Sodium 142 mEq/L (136-145); Total Protein 6.3 g/dL (6.0-8.3); eGFR For African Americans > 60 (> 60); eGFR For Non-African Americans > 60 (> 60)
[2017-01-29 04:53] LABS: Platelet Count 91 K/mcL (140-400)
[2017-01-29] MEDS: Pantoprazole 40 MG VIAL IVP SCH (09:12)
--- NOTE | 2017-01-29 10:08 | General Surgery Progress Note ---
Date of Encounter: 01/29/17 Time of Encounter: 09:45 - Assessment and Plan (1) Acute cholecystitis Current Visit: Yes Status: Acute POD #3 laparoscopic cholecystectomy Full liquid diet Supportive care/pain control- Toradol helped her post-operative pain Increase activity as tolerated- ambulate hallways TID with assistance Continue surgical drain- bilious today (change from yesterday) IS every 1 hour while awake PPI therapy daily Spoke with Dr. Sandhu and will consider ERCP tomorrow 01/30/17 if JUDAH output is greater than 100ml today (2) DVT prophylaxis Current Visit: Yes Status: Acute Ambulate hallways TID with assistance EPCDs to bilateral lower extremities for DVT prophylaxis Subjective Patient reports: no new complaints, feels better, still having pain, pain is less, tolerating liquids well (full liquids), voiding w/o difficulty (urine is not recorded but urine is noted in the toilet), flatus, no bowel movement, afebrile, other (Out of bed to chair and patient states that she feels much better today) Objective Vital Signs - Last 8 Hours Temp Pulse Resp BP Pulse Ox 01/29/17 06:36 98.4 F 98 16 117/71 95 01/29/17 03:09 98.2 F 99 16 119/63 93 Intake and Output 01/28/17 01/29/17 01/29/17 23:59 07:59 15:59 Intake Total 240 / 240 Output Total 100 / 100 50 / 50 Balance -100 / -100 190 / 190 Intake: Oral 240 / 240 Output: Urine 0 / 0 Wound Drainage 100 / 100 50 / 50 RLQ 100 / 100 50 / 50 Other: Weight 56.427 kg Blood Glucose* 72 Patient Weight 01/29/17 23:59 Weight 56.427 kg - General physical appearance well developed, well nourished, no distress - Eyes normal ocular movement - ENT normal mucosa, atraumatic, normocephalic - Neck Neck exam: trachea midline - Respiratory normal respiratory effort, clear to auscultation - Cardiovascular Cardiovascular exam: Present: RRR - Abdomen Abdomen: Present: bowel sounds present, soft, tender (expected post-operative tenderness), wound (JUDAH drain to bulb suction with bilious drainage noted today ( change from yesterday) 50ml charted since midinght) - Incision Incision: Present: clean and dry, intact - Neurologic CN 2-12 grossly intact - Psychiatric oriented to time, oriented to person, oriented to place, speech is normal, memory intact - Labs 01/29/17 04:18 01/29/17 04:18 Diabetes panel 01/29/17 Range/Units 04:18 Sodium 142 (136-145) mEq/L Potassium 3.7 (3.5-4.5) mEq/L Chloride 109 (98-109) mEq/L Carbon Dioxide 22 (19-29) mEq/L BUN 26 H (7-20) mg/dL Creatinine 0.81 (0.57-1.11) mg/dL Glucose 67 L (70-99) mg/dL Calcium 8.6 (8.6-10.8) mg/dL AST 20 (5-34) Units/L ALT 34 (0-55) Units/L Alkaline Phosphatase 107 (38-126) Units/L Albumin 2.2 L (3.5-5.0) g/dL Calcium panel 01/29/17 Range/Units 04:18 Calcium 8.6 (8.6-10.8) mg/dL Albumin 2.2 L (3.5-5.0) g/dL Pituitary panel 01/29/17 Range/Units 04:18 Sodium 142 (136-145) mEq/L Potassium 3.7 (3.5-4.5) mEq/L Chloride 109 (98-109) mEq/L Carbon Dioxide 22 (19-29) mEq/L BUN 26 H (7-20) mg/dL Creatinine 0.81 (0.57-1.11) mg/dL Glucose 67 L (70-99) mg/dL Calcium 8.6 (8.6-10.8) mg/dL Adrenal panel 01/29/17 Range/Units 04:18 Sodium 142 (136-145) mEq/L Potassium 3.7 (3.5-4.5) mEq/L Chloride 109 (98-109) mEq/L Carbon Dioxide 22 (19-29) mEq/L BUN 26 H (7-20) mg/dL Creatinine 0.81 (0.57-1.11) mg/dL Glucose 67 L (70-99) mg/dL Calcium 8.6 (8.6-10.8) mg/dL Total Bilirubin 0.9 (0.2-1.2) mg/dL AST 20 (5-34) Units/L ALT 34 (0-55) Units/L Alkaline Phosphatase 107 (38-126) Units/L Albumin 2.2 L (3.5-5.0) g/dL - VTE Documentation of Mechanical Device: Intermittent pneumatic compression device Consult Discharge Plan - Plan Instructions: Barry-Gamboa Drain Care (DC), Laparoscopic Cholecystectomy (DC) Additional Instructions: -No lifting, pulling, pushing, greater than 15 pounds for 2 weeks. -Okay to climb stairs. -May resume driving when you have been off narcotics for 24 hours and you are safe to react in the car. -You may shower beginning today. Wash the incisions daily with soap and water and pat dry. -Suspend your JUDAH drain to a lanyard or string to prevent it from dangling while in the shower. -No swimming, tough bath, or soaking for 2 weeks. -Return to the office for follow-up as directed. -Report any increase in discomfort or any new fevers greater than 101.5 degrees and signs of infection such as redness, swelling, or drainage from the incisions. -Take colace while on narcotics. May hold for loose stool. Referrals: John Real Jr, MD [Primary Care Provider] - Angelika Lim CNP [Advanced Practice Nurse] - 02/12/17 1:00 pm - Attending Attestation For this encounter, I have reviewed the FLARER or PA documentation, treatment plan, and medical decision making; and I have had face to face time with this patient.
--- NOTE | 2017-01-29 12:04 | Internal Med Progress Note ---
Date of Encounter: 01/29/17 Time of Encounter: 12:05 - Assessment and plan (1) Acute cholecystitis Current Visit: Yes Status: Acute Assessment and plan: S/P cholecystectomy POD #3 continue postoperative care as per surgery, consultation appreciated Full liquid diet Incentive spirometry pain control GI consultation for ERCP in am NPO after midnight (2) Anemia Current Visit: No Status: Chronic Assessment and plan: H&H low but acceptable continue to monitor H&H no acute bleeding reported will transfuse as needed for Hgb<7 Qualifiers: Anemia type: unspecified type Qualified Code(s): D64.9 - Anemia, unspecified (3) DVT prophylaxis Current Visit: Yes Status: Acute Assessment and plan: IPCD (4) Elevated LFTs Current Visit: Yes Status: Resolved Assessment and plan: Bilirubin back to normal however given worsening JUDAH drain output, ERCP to be done in am by GI NPO after midnight (5) GERD (gastroesophageal reflux disease) Current Visit: No Status: Acute Assessment and plan: IV Protonix daily. Qualifiers: Esophagitis presence: without esophagitis Qualified Code(s): K21.9 - Gastro -esophageal reflux disease without esophagitis (6) Rheumatoid arthritis Current Visit: Yes Status: Chronic Assessment and plan: Continue methotrexate toradol q6h Qualifiers: Rheumatoid arthritis location: multiple sites Rheumatoid factor presence: unspecified presence Qualified Code(s): M06.9 - Rheumatoid arthritis, unspecified (7) Thrombocytopenia Current Visit: Yes Status: Acute Assessment and plan: We will monitor. Avoid anticoagulation due to heightened risk of bleeding. - Subjective Interval history: Patient seen and examined. Resting in chair and reports of feeling better today. Reports of diffuse abd pain on palpation, however tolerating full liquid diet well. Noted to have increase in JUDAH drain output due to which GI is consulted for possible ERCP in am. - Constitutional Vitals: Temp Pulse Resp BP Pulse Ox 98.7 F 63 15 144/77 99 01/29/17 11:04 01/29/17 11:04 01/29/17 11:04 01/29/17 11:04 01/29/17 11:04 General appearance: Present: A&O X 3, pleasant, no acute distress, answers questions appropriately - Head Head exam: Present: atraumatic, normocephalic - Eye Eye exam: Present: conjuntiva pink, sclera anicteric - Respiratory Respiratory exam: Absent: respiratory distress, wheezes - Cardiovascular Cardiovascular exam: Present: RRR, +S1, +S2. Absent: diastolic murmur, gallop, rubs, systolic murmur - GI/Abdominal GI/Abdominal exam: Present: normal bowel sounds, soft, no peritoneal signs. Absent: distended, tenderness Additional comments: RUQ dressing intact, JUDAH drain in place - Extremities Exam Extremities exam: Present: warm, radial pulses palpable and symmetrical. Absent : calf tenderness (b/l hand deformities secondary to rheumatoid arthritis ), pedal edema Internal Medicine: Result - Labs CBC & Chem 7: 01/29/17 04:18 01/29/17 04:18 Labs: Short CBC 01/29/17 Range/Units 04:18 WBC 9.6 (4.3-11.1) K/mcL Hgb 8.3 L (11.5-15.4) g/dL Hct 25.9 L (35.3-44.9) % Plt Count 91 L (140-400) K/mcL Neutrophils # 8.0 (1.6-8.9) K/mcL BMP 01/29/17 04:18 Sodium 142 Potassium 3.7 Chloride 109 Carbon Dioxide 22 BUN 26 H Creatinine 0.81 Glucose 67 L Calcium 8.6 Liver Function 01/29/17 Range/Units 04:18 Total Bilirubin 0.9 (0.2-1.2) mg/dL AST 20 (5-34) Units/L ALT 34 (0-55) Units/L Alkaline Phosphatase 107 (38-126) Units/L Albumin 2.2 L (3.5-5.0) g/dL - VTE Documentation of Mechanical Device: Intermittent pneumatic compression device Consult Discharge Plan - Plan Instructions: Barry-Gamboa Drain Care (DC), Laparoscopic Cholecystectomy (DC) Additional Instructions: -No lifting, pulling, pushing, greater than 15 pounds for 2 weeks. -Okay to climb stairs. -May resume driving when you have been off narcotics for 24 hours and you are safe to react in the car. -You may shower beginning today. Wash the incisions daily with soap and water and pat dry. -Suspend your JUDAH drain to a lanyard or string to prevent it from dangling while in the shower. -No swimming, tough bath, or soaking for 2 weeks. -Return to the office for follow-up as directed. -Report any increase in discomfort or any new fevers greater than 101.5 degrees and signs of infection such as redness, swelling, or drainage from the incisions. -Take colace while on narcotics. May hold for loose stool. Referrals: John Real Jr, MD [Primary Care Provider] - Angelika Lim CNP [Advanced Practice Nurse] - 02/12/17 1:00 pm
--- NOTE | 2017-01-29 14:21 | Electrocardiograph Report ---
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
--- NOTE | 2017-01-29 15:15 | Electrocardiograph Report ---
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
[2017-01-29] MEDS ORDERED: *HR* Methotrexate 2.5 MG TABLET PO SCH (16:00)
[2017-01-30] MEDS: Ketorolac 15 MG/ML VIAL IVP SCH ×4 (00:26→18:25)
[2017-01-30] MEDS: Pantoprazole 40 MG VIAL IVP SCH (07:40)
[2017-01-30 07:53] LABS: Alanine Aminotransferase 23 Units/L (0-55); Albumin/Globulin Ratio 0.5 (1.1-2.2); Alkaline Phosphatase 90 Units/L (38-126); Aspartate Amino Transferase 16 Units/L (5-34); BUN/Creatinine Ratio 35 (6-26); Bilirubin,Total 0.9 mg/dL (0.2-1.2); Blood Urea Nitrogen 26 mg/dL (7-20); Calcium 8.3 mg/dL (8.6-10.8); Carbon Dioxide 25 mEq/L (19-29); Chloride 107 mEq/L (98-109); Globulin 3.9 g/dL (2.4-3.5); Glucose 115 mg/dL (70-99); Magnesium 1.4 mg/dL (1.6-2.6); Osmolality,Calculated 296 (280-300); Phosphorous 1.8 mg/dL (2.3-4.7); Potassium 3.2 mEq/L (3.5-4.5); Sodium 140 mEq/L (136-145); Total Protein 5.8 g/dL (6.0-8.3); eGFR For African Americans > 60 (> 60); eGFR For Non-African Americans > 60 (> 60)
[2017-01-30 07:54] LABS: Albumin 1.9 g/dL (3.5-5.0)
[2017-01-30 08:51] LABS: Basophils % 0.1 %; Immature Granulocytes % 0.7 % (0-4); Mean Corpuscular HGB Conc 32.6 g/dL (31.6-35.5)
[2017-01-30 08:53] LABS: Eosinophils # 0.1 K/mcL (0.0-0.6); Eosinophils % 1.5 %; Hemoglobin 7.5 g/dL (11.5-15.4); Immature Platelets 4.9 % (1.1-6.1); Lymphocytes # 0.9 K/mcL (0.6-4.6); Lymphocytes % 13.6 %; Mean Corpuscular Hemoglobin 29.5 pg (28.0-33.3); Mean Corpuscular Volume 90.6 fL (83.0-100.0); Monocytes # 0.6 K/mcL (0.0-1.3); Monocytes % 8.2 %; Neutrophils # 5.1 K/mcL (1.6-8.9); Nucleated Red Blood Cells 0.3 /100 WBC (0); Red Blood Count 2.54 M/mcL (3.82-4.97); Red Cell Distribution Width 18.3 % (11.5-14.5); Segmented Neutrophils % 75.9 %
[2017-01-30 08:56] LABS: Platelet Count 88 K/mcL (140-400)
[2017-01-30] MEDS ORDERED: Potassium Phosphate 44 MEQ in 0.9 % Sodium Chloride 250 ML IVPB ONE (09:26)
[2017-01-30 09:27] LABS: Anisocytosis 1+ (Not Present)
[2017-01-30] MEDS ORDERED: Magnesium Sulfate 2 GM in D5% in Water 100 ML IVPB ONE (09:27)
[2017-01-30 09:28] LABS: Hypochromasia Present (Not Present); Schistocytes 1+ (Not Present); Tear Drop Cells 1+ (Not Present)
[2017-01-30 09:29] LABS: Platelet Estimate Decreased (Normal)
[2017-01-30] MEDS ORDERED: *HR* Metoprolol 5 MG/5 ML VIAL IVP PRN (09:31)
--- NOTE | 2017-01-30 09:31 | Internal Med Progress Note ---
Date of Encounter: 01/30/17 Time of Encounter: 08:45 - Assessment and plan (1) Acute cholecystitis Current Visit: Yes Status: Acute Assessment and plan: S/P cholecystectomy POD #4 continue postoperative care as per surgery, consultation appreciated Full liquid diet Incentive spirometry pain control GI consultation for ERCP today (01/30/17) (2) Anemia Current Visit: No Status: Chronic Assessment and plan: H&H low but acceptable continue to monitor H&H no acute bleeding reported will transfuse as needed for Hgb<7 Qualifiers: Anemia type: unspecified type Qualified Code(s): D64.9 - Anemia, unspecified (3) DVT prophylaxis Current Visit: Yes Status: Acute Assessment and plan: IPCD (4) Elevated LFTs Current Visit: Yes Status: Resolved Assessment and plan: Bilirubin back to normal however given worsening JUDAH drain output, ERCP to be done today by GI (5) GERD (gastroesophageal reflux disease) Current Visit: No Status: Acute Assessment and plan: IV Protonix daily. Qualifiers: Esophagitis presence: without esophagitis Qualified Code(s): K21.9 - Gastro -esophageal reflux disease without esophagitis (6) Rheumatoid arthritis Current Visit: Yes Status: Chronic Assessment and plan: Continue methotrexate toradol q6h Qualifiers: Rheumatoid arthritis location: multiple sites Rheumatoid factor presence: unspecified presence Qualified Code(s): M06.9 - Rheumatoid arthritis, unspecified (7) Thrombocytopenia Current Visit: Yes Status: Acute Assessment and plan: We will monitor. Avoid anticoagulation due to heightened risk of bleeding. (8) Electrolyte abnormality Current Visit: Yes Status: Acute Assessment and plan: Hypokalemia, Hypophosphatemia, and Hypomagnesemia K, Phos, Mg supplemented will continue to monitor electrolytes and replace as needed - Subjective Interval history: Patient seen and examined at bedside. Resting in bed and reports of feeling better today. Denies any abd pain, reports of passing gas and tolerating PO intake well. Continues to have worsening output in JUDAH drain. Scheduled for ERCP today by Dr. Sandhu - Constitutional Vitals: Temp Pulse Resp BP Pulse Ox 99.4 F 95 16 158/73 93 01/30/17 06:44 01/30/17 06:44 01/30/17 06:44 01/30/17 06:44 01/30/17 06:44 General appearance: Present: A&O X 3, pleasant, no acute distress, answers questions appropriately - Head Head exam: Present: atraumatic, normocephalic - Eye Eye exam: Present: conjuntiva pink, sclera anicteric - Respiratory Respiratory exam: Present: CTAB. Absent: respiratory distress, wheezes - Cardiovascular Cardiovascular exam: Present: RRR, +S1, +S2. Absent: diastolic murmur, gallop, rubs, systolic murmur - GI/Abdominal GI/Abdominal exam: Present: normal bowel sounds, soft, no peritoneal signs. Absent: distended, tenderness - Extremities Exam Extremities exam: Present: warm, radial pulses palpable and symmetrical. Absent : calf tenderness (B/L hand and feet deformities consistent with rheumatoid arthritis ) - Neurological Exam Neurological exam: Present: alert, oriented X3 - Psychiatric Psychiatric exam: Present: normal affect, normal mood Internal Medicine: Result - Labs CBC & Chem 7: 01/30/17 06:06 01/30/17 06:06 Labs: Short CBC 01/30/17 Range/Units 06:06 WBC 6.7 (4.3-11.1) K/mcL Hgb 7.5 L (11.5-15.4) g/dL Hct 23.0 L (35.3-44.9) % Plt Count 88 L (140-400) K/mcL BMP 01/30/17 06:06 Sodium 140 Potassium 3.2 L Chloride 107 Carbon Dioxide 25 BUN 26 H Creatinine 0.74 Glucose 115 H Calcium 8.3 L Liver Function 01/30/17 Range/Units 06:06 Total Bilirubin 0.9 (0.2-1.2) mg/dL AST 16 (5-34) Units/L ALT 23 (0-55) Units/L Alkaline Phosphatase 90 (38-126) Units/L Albumin 1.9 L (3.5-5.0) g/dL - VTE Documentation of Mechanical Device: Intermittent pneumatic compression device Consult Discharge Plan - Plan Instructions: Barry-Gamb[place] Drain Care (DC), Laparoscopic Cholecystectomy (DC) Additional Instructions: -No lifting, pulling, pushing, greater than 15 pounds for 2 weeks. -Okay to climb stairs. -May resume driving when you have been off narcotics for 24 hours and you are safe to react in the car. -You may shower beginning today. Wash the incisions daily with soap and water and pat dry. -Suspend your JUDAH drain to a lanyard or string to prevent it from dangling while in the shower. -No swimming, tough bath, or soaking for 2 weeks. -Return to the office for follow-up as directed. -Report any increase in discomfort or any new fevers greater than 101.5 degrees and signs of infection such as redness, swelling, or drainage from the incisions. -Take colace while on narcotics. May hold for loose stool. Referrals: John Real Jr, MD [Primary Care Provider] - Angelika Lim CNP [Advanced Practice Nurse] - 02/12/17 1:00 pm
--- NOTE | 2017-01-30 09:53 | General Surgery Progress Note ---
Date of Encounter: 01/30/17 Time of Encounter: 09:51 - Assessment and Plan (1) Acute cholecystitis Current Visit: Yes Status: Acute s/p Lap moy with IOC and JUDAH drain placement 01/26/2017 - continue supportive care and discomfort management, discomfort is well- managed with scheduled toradol and PRN norco for better pain control. Ok to take Tylenol with PRN meds as long as not to exceed 1G of acetaminophen Q4 hours -full liquid diet advance as tolerated (when okay with GI) -Encouraged IS and at least 3 times daily -Continue PPI prophylaxis -GI following. -Bedside RN to perform education regarding drain care for home. Pt states she has help at home to care for drain and assist in her care. -Aprox 70 ml (total of 120 ml today) brown drainage in the JUDAH emptied this am. Similar in appearance to previous. Reviewed with bedside RN (Kortney) and GI resident. (2) Pancreatitis Current Visit: Yes Status: Resolved See plan above; GI following Qualifiers: Chronicity: acute Pancreatitis type: unspecified pancreatitis type Acute pancreatitis complication: unspecified Qualified Code(s): K85.90 - Acute pancreatitis without necrosis or infection, unspecified (3) Rheumatoid arthritis Current Visit: Yes Status: Chronic Management per medicine Qualifiers: Rheumatoid arthritis location: multiple sites Rheumatoid factor presence: unspecified presence Qualified Code(s): M06.9 - Rheumatoid arthritis, unspecified (4) DVT prophylaxis Current Visit: Yes Status: Acute Management per medicine (5) GERD (gastroesophageal reflux disease) Current Visit: No Status: Acute See above Qualifiers: Esophagitis presence: without esophagitis Qualified Code(s): K21.9 - Gastro -esophageal reflux disease without esophagitis (6) Anemia Current Visit: No Status: Chronic VSS, NAD, will continue to monitor. repeat am labs per medicine. Qualifiers: Anemia type: unspecified type Qualified Code(s): D64.9 - Anemia, unspecified Subjective Patient reports: no new complaints, feels better, still having pain, pain is less, voiding w/o difficulty, flatus, no bowel movement, afebrile Narrative: Jennifer stated she is feeling much better. She reports that her abdominal discomfort feels different than when she presented to the hospital. She further qualifies this as "it's just surgery pain." She denies nausea or vomiting. She denies appetite but does endorse feeling thirsty. Objective Vital Signs - Last 8 Hours Temp Pulse Resp BP Pulse Ox 01/30/17 06:44 99.4 F 95 16 158/73 93 01/30/17 03:23 99.0 F 93 18 128/78 Intake and Output 01/29/17 01/30/17 01/30/17 23:59 07:59 15:59 Output Total 0 / 0 0 / 0 250 / 250 Balance 0 / 0 0 / 0 -250 / -250 Output: Urine 0 / 0 0 / 0 250 / 250 Other: # Voids 1 # Bowel Movements 0 Weight 55.565 kg Blood Glucose* 126 Patient Weight 01/30/17 23:59 Weight 55.565 kg - General physical appearance well nourished, no distress - ENT atraumatic, normocephalic - Neck Neck exam: trachea midline, no venous distension - Respiratory normal expansion, normal respiratory effort, clear to auscultation - Cardiovascular Cardiovascular exam: Present: RRR, murmurs - Abdomen Abdomen: Present: bowel sounds present, soft, tender (Expected postoperative), wound (Right JUDAH drain with minimal erythema surrounding the drain. 70 ML's of brown drainage, similar to previous noted. Small amount of areas of cloudiness likely representing fat particles.) - Incision Incision: Present: clean and dry, intact - Integumentary no rash, no growths - Neurologic CN 2-12 grossly intact - Musculoskeletal normal gait, normal posture - Psychiatric oriented to time, oriented to person, oriented to place, memory intact - Labs 01/30/17 06:06 01/30/17 06:06 Noted hemoglobin slightly decreased, but vital signs are stable. This appears consistent with her chronic findings. Diabetes panel 01/30/17 Range/Units 06:06 Sodium 140 (136-145) mEq/L Potassium 3.2 L (3.5-4.5) mEq/L Chloride 107 (98-109) mEq/L Carbon Dioxide 25 (19-29) mEq/L BUN 26 H (7-20) mg/dL Creatinine 0.74 (0.57-1.11) mg/dL Glucose 115 H (70-99) mg/dL Calcium 8.3 L (8.6-10.8) mg/dL AST 16 (5-34) Units/L ALT 23 (0-55) Units/L Alkaline Phosphatase 90 (38-126) Units/L Albumin 1.9 L (3.5-5.0) g/dL Calcium panel 01/30/17 Range/Units 06:06 Calcium 8.3 L (8.6-10.8) mg/dL Phosphorus 1.8 L (2.3-4.7) mg/dL Albumin 1.9 L (3.5-5.0) g/dL Pituitary panel 01/30/17 Range/Units 06:06 Sodium 140 (136-145) mEq/L Potassium 3.2 L (3.5-4.5) mEq/L Chloride 107 (98-109) mEq/L Carbon Dioxide 25 (19-29) mEq/L BUN 26 H (7-20) mg/dL Creatinine 0.74 (0.57-1.11) mg/dL Glucose 115 H (70-99) mg/dL Calcium 8.3 L (8.6-10.8) mg/dL Adrenal panel 01/30/17 Range/Units 06:06 Sodium 140 (136-145) mEq/L Potassium 3.2 L (3.5-4.5) mEq/L Chloride 107 (98-109) mEq/L Carbon Dioxide 25 (19-29) mEq/L BUN 26 H (7-20) mg/dL Creatinine 0.74 (0.57-1.11) mg/dL Glucose 115 H (70-99) mg/dL Calcium 8.3 L (8.6-10.8) mg/dL Total Bilirubin 0.9 (0.2-1.2) mg/dL AST 16 (5-34) Units/L ALT 23 (0-55) Units/L Alkaline Phosphatase 90 (38-126) Units/L Albumin 1.9 L (3.5-5.0) g/dL - VTE Documentation of Mechanical Device: Intermittent pneumatic compression device Consult Discharge Plan - Plan Instructions: Barry-Gamb[place] Drain Care (DC), Laparoscopic Cholecystectomy (DC) Additional Instructions: -No lifting, pulling, pushing, greater than 15 pounds for 2 weeks. -Okay to climb stairs. -May resume driving when you have been off narcotics for 24 hours and you are safe to react in the car. -You may shower beginning today. Wash the incisions daily with soap and water and pat dry. -Suspend your JUDAH drain to a lanyard or string to prevent it from dangling while in the shower. -No swimming, tough bath, or soaking for 2 weeks. -Return to the office for follow-up as directed. -Report any increase in discomfort or any new fevers greater than 101.5 degrees and signs of infection such as redness, swelling, or drainage from the incisions. -Take colace while on narcotics. May hold for loose stool. Referrals: John Real Jr, MD [Primary Care Provider] - Angelika Lim CNP [Advanced Practice Nurse] - 02/12/17 1:00 pm Prescriptions: Docusate [Colace] 100 mg PO BID #60 capsule HYDROcodone/Acet 7.5/325 mg [[place] 7.5-325 mg] 1 tab PO Q4H PRN #42 tablet PRN Reason: Moderate Pain
--- NOTE | 2017-01-30 13:06 | Anesthesia Evaluation PreOp ---
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: Other (migraine LOPEZ's) Other Medical History: Renal (kidney stones), Thyroid, GERD, Other (rheumatoid arthritis) Anesthesia History: Past Anesthesia, Difficult Airway Alcohol Use: none Drug use: none Medications and Allergies Ergocalciferol (VITAMIN D2) [Vitamin D2] 50,000 unit PO QWEEK 09/02/16 [History] Ferrous Sulfate [Iron] 325 mg PO DAILY 09/02/16 [History] Folic Acid 1 mg PO DAILY 09/02/16 [History] HYDROcodone/Acet 5/325 mg [[place] 5-325 mg] 1 tab PO Q6H PRN 09/02/16 [History] Methotrexate [Otrexup] 15 mg PO QWEEK 09/02/16 [History] Pantoprazole Sodium 40 mg PO DAILY 09/02/16 [History] Naproxen [Naprosyn] 500 mg PO BID 01/26/17 [History] Docusate [Colace] 100 mg PO BID #60 capsule 01/30/17 [Rx] HYDROcodone/Acet 7.5/325 mg [[place] 7.5-325 mg] 1 tab PO Q4H PRN #42 tablet 01/30 [Rx] 3 Allergy/AdvReac Type Severity Reaction Status Date / Time piperacillin [From Zosyn] Allergy Hives Verified 01/25/17 21:35 Sulfa (Sulfonamide Allergy Rash Verified 01/26/17 12:52 Antibiotics) tazobactam [From Zosyn] Allergy Hives Verified 01/25/17 21:35 - Meds/Allergy Pre-op Review Medications Reviewed: Yes Allergies Reviewed: Yes Beta Blockers on Current Med List: No Anesthesia Results - Labs 01/30/17 06:06 01/30/17 06:06 - Imaging EKG: report reviewed (09/02/2016 SR) Anesthesia Exam Vital Signs/O2 Sat/Glucose, Most Recent Temp Pulse Resp BP Pulse Ox 98.9 F 89 14 127/72 96 01/30/17 10:34 01/30/17 10:34 01/30/17 10:34 01/30/17 10:34 01/30/17 10:34 Blood Glucose* 126 Height: 5'3''/1.6 m Weight: 122 lbs/55.565 kg NPO (# of Hours): 8 Pain Scale: 4 (abdomen) Pain Scale Used: Numeric (1 - 10) - HEENT Pupil (Motor): EOMI Mallampati: II Teeth: Poor dentition (multiple broken/decayed teeth) Oral Opening: Greater than 3 - SIGNAL WORKER HELPER LOC: Oriented SIGNAL WORKER HELPER Motor: Normal RUE, Normal LUE, Normal RLE, Normal LLE, Normal Face SIGNAL WORKER HELPER Sensory: Normal: RUE, LUE, RLE, LLE, Face - Cardiac Rhythm: Regular Murmur: None - Pulmonary Breath Sounds: bilateral Clear Respiratory Effort: Symmetrical Anesthesia Assess/Plan ASA Score: 2 Modified Gray Scale for Level of Consciousness: Cooperative, oriented, and tranquil Anesthetic Plan: General Monitoring Plan: Standard Monitors Recovery Plan: PACU
[2017-01-30] MEDS ORDERED: *HR* FentaNYL (PF) 100 MCG/2 ML VIAL ONE (13:16)
[2017-01-30] MEDS ORDERED: Indomethacin 50 MG SUPP.RECT RC ONE (13:35)
--- NOTE | 2017-01-30 16:08 | Anesthesia Evaluation Post Op ---
Date of Encounter: 01/30/17 Time of Encounter: 16:07 - Vital Signs Vital Signs: Vital Signs/O2 Sat/Glucose, Most Current Temp Pulse Resp BP Pulse Ox 01/30/17 15:58 99.7 F H 96 16 118/55 95 01/30/17 15:48 95 18 121/45 100 01/30/17 15:38 94 18 115/50 100 01/30/17 15:28 98.9 F 99 18 126/51 100 01/30/17 13:08 99.6 F 96 16 153/77 91 - Lungs Lungs: Clear Ascult./Percussion - Airway Airway: Non-obstructed - Cardiovascular Regular Rate, Baseline Rhythm - Mental Status Mental Status: Asleep with brisk response to light stimulation - Pain Pain Scale: 0 Pain Scale used: Numeric (1 - 10) - Nausea Vomiting Nausea Vomiting: Not Present - Hydration Hydration: Ice chips, Has not voided - Discharge PostOp Status: Transfer Patient to floor
--- NOTE | 2017-01-31 08:02 | General Surgery Progress Note ---
Date of Encounter: 01/31/17 Time of Encounter: 07:30 - Assessment and Plan (1) Acute cholecystitis Current Visit: Yes Status: Acute s/p Lap moy with IOC and JUDAH drain placement 01/26/2017 s/p ERCP with noted bile leak and temporary stent placement (per GI note stent to be removed in 2 months). - continue supportive care and discomfort management, discomfort is well- managed with scheduled toradol and PRN norco for better pain control. Ok to take Tylenol with PRN meds as long as not to exceed 1G of acetaminophen Q4 hours -Begin clear liquid diet, advance as tolerated; add Ensure clear TID with trays -Encouraged IS and at least 3 times daily -Continue PPI prophylaxis -GI following (see above) -Pending today's lab results, OK to d/c from a surgical perspective and follow- up in office as directed. (2) Pancreatitis Current Visit: Yes Status: Resolved See plan above; GI following Qualifiers: Chronicity: acute Pancreatitis type: unspecified pancreatitis type Acute pancreatitis complication: unspecified Qualified Code(s): K85.90 - Acute pancreatitis without necrosis or infection, unspecified (3) Rheumatoid arthritis Current Visit: Yes Status: Chronic Management per medicine Qualifiers: Rheumatoid arthritis location: multiple sites Rheumatoid factor presence: unspecified presence Qualified Code(s): M06.9 - Rheumatoid arthritis, unspecified (4) DVT prophylaxis Current Visit: Yes Status: Acute Management per medicine (5) GERD (gastroesophageal reflux disease) Current Visit: No Status: Acute See above Qualifiers: Esophagitis presence: without esophagitis Qualified Code(s): K21.9 - Gastro -esophageal reflux disease without esophagitis (6) Anemia Current Visit: No Status: Chronic VSS, NAD, will continue to monitor. repeat am labs per medicine. Qualifiers: Anemia type: unspecified type Qualified Code(s): D64.9 - Anemia, unspecified Subjective Patient reports: no new complaints, feels better, pain is less, voiding w/o difficulty, flatus, no bowel movement, afebrile Objective Vital Signs - Last 8 Hours Temp Pulse Resp BP Pulse Ox 01/31/17 06:47 97.5 F L 85 14 136/79 95 01/31/17 04:35 98.1 F 81 14 132/74 96 01/31/17 00:09 98.1 F 85 16 146/79 95 Intake and Output 01/30/17 01/30/17 01/31/17 15:59 23:59 07:59 Intake Total 260 / 260 Output Total 320 / 320 320 / 320 250 / 250 Balance -320 / -320 -60 / -60 -250 / -250 Intake: IV Fluids 260 / 260 Potassium Phosphate 44 260 / 260 MEQ In 0.9 % Sodium Chloride 250 ML @ 40 mls/ hr IVPB ONCE ONE Rx#: [id number] Output: Urine 250 / 250 300 / 300 250 / 250 Wound Drainage 70 / 70 20 / 20 0 / 0 RLQ 70 / 70 20 / 20 0 / 0 Other: Meal NPO Weight 56.3 kg Blood Glucose* 164 Patient Weight 01/31/17 23:59 Weight 56.3 kg - General physical appearance no distress, no pain - Eyes normal ocular movement - ENT atraumatic, normocephalic - Neck Neck exam: trachea midline - Respiratory normal expansion, normal respiratory effort, clear to auscultation - Cardiovascular Cardiovascular exam: Present: RRR, murmurs - Abdomen Abdomen: Present: bowel sounds present, soft, tender (Expected postoperative) Hernia: none - Incision Incision: Present: clean and dry, intact - Integumentary no rash - Neurologic CN 2-12 grossly intact - Musculoskeletal other (Contractures noted) - Psychiatric oriented to time, oriented to person, oriented to place, speech is normal, memory intact - Labs 01/31/17 04:17 01/30/17 06:06 - VTE Documentation of Mechanical Device: Intermittent pneumatic compression device Consult Discharge Plan - Plan Instructions: [place] Drain Care (DC), Laparoscopic Cholecystectomy (DC) Additional Instructions: -No lifting, pulling, pushing, greater than 15 pounds for 2 weeks. -Okay to climb stairs. -May resume driving when you have been off narcotics for 24 hours and you are safe to react in the car. -You may shower beginning today. Wash the incisions daily with soap and water and pat dry. -Suspend your JUDAH drain to a lanyard or string to prevent it from dangling while in the shower. -No swimming, tough bath, or soaking for 2 weeks. -Return to the office for follow-up as directed. -Report any increase in discomfort or any new fevers greater than 101.5 degrees and signs of infection such as redness, swelling, or drainage from the incisions. -Take colace while on narcotics. May hold for loose stool. Referrals: John Real Jr, MD [Primary Care Provider] - Angelika Lim CNP [Advanced Practice Nurse] - 02/12/17 1:00 pm Pete Sandhu MD [Partnered Physician] - (in one month to set up stent removal) Prescriptions: Docusate [Colace] 100 mg PO BID #60 capsule HYDROcodone/Acet 7.5/325 mg [[place] 7.5-325 mg] 1 tab PO Q4H PRN #42 tablet PRN Reason: Moderate Pain
[2017-01-31 08:05] LABS: Hematocrit 24.3 % (35.3-44.9); Hemoglobin 7.8 g/dL (11.5-15.4); Immature Granulocytes % 0.6 % (0-4); Lymphocytes # 0.4 K/mcL (0.6-4.6); Lymphocytes % 6.8 %; Mean Corpuscular HGB Conc 32.1 g/dL (31.6-35.5); Mean Corpuscular Hemoglobin 29.7 pg (28.0-33.3); Mean Corpuscular Volume 92.4 fL (83.0-100.0); Mean Platelet Volume 14.1 fL (9.4-12.4); Monocytes % 0.8 %; Neutrophils # 4.7 K/mcL (1.6-8.9); Platelet Count 128 K/mcL (140-400); Red Blood Count 2.63 M/mcL (3.82-4.97); Red Cell Distribution Width 18.7 % (11.5-14.5); Segmented Neutrophils % 91.8 %
[2017-01-31 08:58] LABS: Alanine Aminotransferase 22 Units/L (0-55); Albumin 2.1 g/dL (3.5-5.0); Albumin/Globulin Ratio 0.5 (1.1-2.2); Alkaline Phosphatase 88 Units/L (38-126); Aspartate Amino Transferase 23 Units/L (5-34); BUN/Creatinine Ratio 43 (6-26); Bilirubin,Total 0.8 mg/dL (0.2-1.2); Blood Urea Nitrogen 33 mg/dL (7-20); Calcium 8.1 mg/dL (8.6-10.8); Carbon Dioxide 25 mEq/L (19-29); Chloride 107 mEq/L (98-109); Globulin 4.1 g/dL (2.4-3.5); Glucose 166 mg/dL (70-99); Osmolality,Calculated 305 (280-300); Potassium 4.1 mEq/L (3.5-4.5); Sodium 142 mEq/L (136-145); Total Protein 6.2 g/dL (6.0-8.3); eGFR For African Americans > 60 (> 60); eGFR For Non-African Americans > 60 (> 60)
[2017-01-31] MEDS ORDERED: Folic Acid 1 MG TABLET PO SCH (09:00)
[2017-01-31 09:05] LABS: Phosphorous 4.2 mg/dL (2.3-4.7)
[2017-01-31 11:27] VITALS: BP 116/68
[2017-01-31] MEDS ORDERED: traMADol 50 MG TABLET PO SCH (12:00)
--- NOTE | 2017-01-31 13:23 | Discharge Summary ---
Date of Encounter: 01/31/17 Time of Encounter: 13:20 - Discharge Diagnosis (1) Acute cholecystitis Priority: Primary Status: Acute (2) Anemia Priority: Secondary Status: Chronic Qualifiers: Anemia type: unspecified type Qualified Code(s): D64.9 - Anemia, unspecified (3) DVT prophylaxis Priority: Secondary Status: Acute (4) Elevated LFTs Priority: Secondary Status: Resolved (5) GERD (gastroesophageal reflux disease) Priority: Secondary Status: Chronic Qualifiers: Esophagitis presence: without esophagitis Qualified Code(s): K21.9 - Gastro -esophageal reflux disease without esophagitis (6) Rheumatoid arthritis Priority: Secondary Status: Chronic Qualifiers: Rheumatoid arthritis location: multiple sites Rheumatoid factor presence: unspecified presence Qualified Code(s): M06.9 - Rheumatoid arthritis, unspecified (7) Thrombocytopenia Priority: Secondary Status: Acute (8) Electrolyte abnormality Priority: Secondary Status: Resolved - Discharge Medications Prescriptions: Docusate [Colace] 100 mg PO BID #60 capsule HYDROcodone/Acet 7.5/325 mg [[place] 7.5-325 mg] 1 tab PO Q4H PRN #42 tablet PRN Reason: Moderate Pain Home Medications: Ergocalciferol (VITAMIN D2) [Vitamin D2] 50,000 unit PO QWEEK 09/02/16 [History] Ferrous Sulfate [Iron] 325 mg PO DAILY 09/02/16 [History] Folic Acid 1 mg PO DAILY 09/02/16 [History] HYDROcodone/Acet 5/325 mg [[place] 5-325 mg] 1 tab PO Q6H PRN 09/02/16 [History] Methotrexate [Otrexup] 15 mg PO QWEEK 09/02/16 [History] Pantoprazole Sodium 40 mg PO DAILY 09/02/16 [History] Naproxen [Naprosyn] 500 mg PO BID 01/26/17 [History] Docusate [Colace] 100 mg PO BID #60 capsule 01/30/17 [Rx] HYDROcodone/Acet 7.5/325 mg [[place] 7.5-325 mg] 1 tab PO Q4H PRN #42 tablet 01/30 [Rx] Allergies/Adverse Reactions: 3 Allergy/AdvReac Type Severity Reaction Status Date / Time piperacillin [From Zosyn] Allergy Hives Verified 01/25/17 21:35 Sulfa (Sulfonamide Allergy Rash Verified 01/26/17 12:52 Antibiotics) tazobactam [From Zosyn] Allergy Hives Verified 01/25/17 21:35 Procedures/tests Complete & Pending: Procedures Performed prior 72 hours Category Date Time Status ECG 12 lead ECG [ECG] Routine Y 01/28/17 15:06 Completed EKG [ECG 12 lead ECG] [ECG] Stat Y 01/28/17 13:15 Completed Date of admission: 01/25/17 19:03 Primary care physician: John Real Jr, MD Consults: 01/25/17 19:10 Consult to Surgery [CONS] Routine Consulting Provider: [facility] Reason for Consult: 76F with cholecystitis, elevated LFTs Call Completed: Yes 01/27/17 17:51 Consult to Gastroenterology [CONS] Routine Consulting Provider: [facility] [place] Reason for Consult: Elevated T bili. May need ERCP. Call Completed: No 01/30/17 12:00 Consult to Occupational Therapy [CONS] Routine Comment: Evaluate, develop and implement POC Reason for Consult: discharge planning Consult to Physical Therapy [CONS] Routine Comment: Evaluate, develop and implement POC Reason for Consult: discharge planning Discharging clinician: Clementine Castro Anticipated date of discharge: 01/31/17 - Patient Status Disposition: Home, Self-Care Condition: Good Overall status at discharge: patient is back to baseline - Discharge Instructions Instructions: [place] Drain Care (DC), Laparoscopic Cholecystectomy (DC) Follow Up With: John Real Jr, MD [Primary Care Provider] - Angelika Lim CNP [Advanced Practice Nurse] - 02/12/17 1:00 pm Pete Sandhu MD [Partnered Physician] - (in one month to set up stent removal) Additional Instructions: -No lifting, pulling, pushing, greater than 15 pounds for 2 weeks. -Okay to climb stairs. -May resume driving when you have been off narcotics for 24 hours and you are safe to react in the car. -You may shower beginning today. Wash the incisions daily with soap and water and pat dry. -Suspend your JUDAH drain to a lanyard or string to prevent it from dangling while in the shower. -No swimming, tough bath, or soaking for 2 weeks. -Return to the office for follow-up as directed. -Report any increase in discomfort or any new fevers greater than 101.5 degrees and signs of infection such as redness, swelling, or drainage from the incisions. -Take colace while on narcotics. May hold for loose stool. -Resume all other medications as prescribed by your primary care physician. - Diet and Activity Activity: increase activity as tolerated Diet: low salt diet Hospital course: Ms. Valenzuela is a 76 year old female with PMH of RA on methotrexate therapy, GERD , thyroid disease who was admitted for abdominal pain secondary to acute cholecystitis. She was followed by surgery and underwent laproscopic cholecystectomy and ERCP. She tolerated the procedures well with complete resolution of her presenting symptoms. She is currently hemodynamically stable and will be discharged to home with follow up with PCP, surgery, and GI. Patient demonstrates understanding of her diagnosis and agrees with the discharge care and plan. - Time Spent with Patient Total time spent providing and/or coordinating discharge services: Less than 30 minutes - Constitutional Vitals: Temp Pulse Resp BP Pulse Ox 98.1 F 94 14 116/68 95 01/31/17 11:26 01/31/17 11:26 01/31/17 11:26 01/31/17 11:26 01/31/17 11:26 General appearance: Present: cooperative, A&O X 3, pleasant, no acute distress, answers questions appropriately - Head Head exam: Present: atraumatic, normocephalic - Eye Eye exam: Present: conjuntiva pink, sclera anicteric - Respiratory Respiratory exam: Present: CTAB. Absent: accessory muscle use, rales, rhonchi, wheezes - Cardiovascular Cardiovascular exam: Present: RRR, +S1, +S2. Absent: diastolic murmur, gallop, rubs, systolic murmur - GI/Abdominal GI/Abdominal exam: Present: normal bowel sounds, soft, no peritoneal signs. Absent: distended, tenderness - Extremities Exam Extremities exam: Present: warm, radial pulses palpable and symmetrical ( bilateral hand and feet deformities secondary to rheumatoid arthritis ). Absent : calf tenderness - Neurological Exam Neurological exam: Present: alert, oriented X3 - Psychiatric Psychiatric exam: Present: normal affect, normal mood - VTE Documentation of Mechanical Device: Intermittent pneumatic compression device
== END 2017-01-31 17:10 | disposition home or self-care (01) | DRG 417 ==
LOC: 3ANU → SUATTDRO 19:03
PROVIDERS: ADMIT Internal Medicine; ATTEND Internal Medicine

== ENCOUNTER 2017-02-10 10:44 | Inpatient (IN) ==
--- NOTE | 2017-02-10 15:17 | Internal Med History&Physical ---
<Juliann Calderón M - Last Filed: 02/10/17 17:06> Date of Encounter: 02/10/17 Time of Encounter: 15:13 Assessment and Plan (1) Intra-abdominal infection Current visit: Yes Status: Acute Patient had cholecystectomy with JUDAH drain placement on 01/26 with post-op bile leak, and subsequent biliary stent placement, now with fevers, abdominal pain and nausea and vomiting. Presumed intra-abdominal infection. JUDAH drainage reportedly grew MRSA at outside hospital. She reports chills and sweats. She was given Cipro, flagyl and then switched to Primaxin at outside hospital. Will get blood cultures, JUDAH drain cultures. Will also get CXR, UA. Measure JUDAH drain output Q shift. Invanz and Vanc IVPB. Monitor VS Q4hr continuous cardiac care nurse. Surgical team consulted. (2) Sepsis Current visit: Yes Status: Acute Patient with intra-abdominal infection, fevers. Microbiology report from [facility] shows gram positive cocci in pairs and clusters, gram positive cocci in chains and WBCs in the JUDAH drainage culture. Suspect MRSA. VS Q4hr continuous telemetry Invanz and Vanc IVPB Blood cultures, JUDAH drainage cultures ordered. Qualifiers: Sepsis type: methicillin resistant Staphylococcus aureus Qualified Code(s) : A41.02 - Sepsis due to Methicillin resistant Staphylococcus aureus (3) Bile leak, postoperative Current visit: No Status: Acute Patient underwent cholecystectomy during admission earlier this month and a JUDAH drain was placed which continued to have significant drainage and so an ERCP was performed and showed a bile leak, and a biliary stent was placed. Patient still has JUDAH drain in place draining brown purulent fluid. CT scan from [facility] on 02/07 showed 2.7cm low denisty luid collection in the gall bladder fossa and biliary stent and surgical drain in place. Surgery team was consulted and will see patient. (4) Abdominal pain Current visit: No Status: Acute Patient reports generalized abdominal pain and is tender to palpation diffusely. She had cholecystectomy 01/26/17 with JUDAH drain placement. She also complains of Nausea and vomiting. Most recent CT at [facility] does not demonstrate post-op ileus or acute intra-abdominal change. [place] and Morphine PRN for pain. Narcan PRN for respiratory depression senna and dulcolax for constipation. Qualifiers: Abdominal location: generalized Qualified Code(s): R10.84 - Generalized abdominal pain (5) Nausea and vomiting Current visit: No Status: Acute Patient reporting nausea and vomiting. clear liquid diet, advance as tolerated. Zofran PRN Qualifiers: Vomiting type: cyclical vomiting Vomiting Intractability: non-intractable Qualified Code(s): G43.A0 - Cyclical vomiting, not intractable (6) Rheumatoid arthritis Current visit: No Status: Chronic Patient on methotrexate weekly. Qualifiers: Rheumatoid arthritis location: multiple sites Rheumatoid factor presence: unspecified presence Qualified Code(s): M06.9 - Rheumatoid arthritis, unspecified (7) DVT prophylaxis Current visit: No Status: Acute anti-embolic stockings heparin SQ TID Internal Medicine - H&P: HPI Chief complaint: abdominal pain, nausea, fever s/p moy Admitted From: Hospital to Hospital Transfer Plans for Post Hospital Care: Home History of present illness: Ms. Valenzuela is a 76 year old female with rheumatoid arthritis, GERD, hypothyroid , history of kidney stones and history of pancreatitis and recent history of cholecystectomy earlier this month presented [facility] on the with anemia and fever, although she was transfused, started on antibiotics , CT of her abdomen showed low density fluid collection near the gallbladder fossa with biliary stent and surgical drains in place, her fevers persisted and her abdominal pain and nausea persisted so team decided to transfer her to [facility]. Dr. Chang her surgeon was consulted and he agreed to accept for admission. Patient reports that she has had chills and sweats, abdominal pain, nausea and vomiting. She denies any lightheadedness, chest pain, palpitations, shortness of breath. Reports her cough. Recent labs from [facility] showed white blood cell count of 4.0, hemoglobin of 9.5, LFTs were within normal limits, albumin was low at 1.9. On exam, patient is alert and oriented, in no acute distress. Heart has regular rate and rhythm, lungs are clear bilaterally to auscultation. Abdomen is soft but diffusely tender to palpation. She has a JUDAH drain in her right upper quadrant draining brown purulent fluid. Skin surrounding JUDAH drain insertion site is erythematous. She has some bruising around her umbilicus from the surgical site. No peripheral edema. Past Med Surg Social Fam HX - Past Medical History Medical history: GERD, kidney stones, migraine, RA, thyroid disease Psychiatric history: no psych history - Past Surgical History Surgical History: appendectomy, cataract, cholecystectomy, knee replacement - Social History Smoking Status: Never smoker Smokeless Tobacco Status: No Alcohol use: none Drug use: none - Family History Mother Family Member Ethnicity: Non- Living Status: Hx Family Cardiac Disorders: Yes Hx Family Respiratory Disorders: No Hx Family Cancer: No Hx Family GI Disorders: No Hx Family Endocrine Disorder: Yes (diabetes) Father History Unknown: Yes Adopted: Yes Living Status: Hx Family Cancer: Yes Internal Medicine - H&P: Meds Ergocalciferol (VITAMIN D2) [Vitamin D2] 50,000 unit PO QWEEK 09/02/16 [History] Ferrous Sulfate [Iron] 325 mg PO DAILY 09/02/16 [History] Folic Acid 1 mg PO DAILY 09/02/16 [History] HYDROcodone/Acet 5/325 mg [[place] 5-325 mg] 1 tab PO Q6H PRN 09/02/16 [History] Methotrexate [Otrexup] 15 mg PO QWEEK 09/02/16 [History] Pantoprazole Sodium 40 mg PO DAILY 09/02/16 [History] Naproxen [Naprosyn] 500 mg PO BID 01/26/17 [History] Docusate [Colace] 100 mg PO BID #60 capsule 01/30/17 [Rx] HYDROcodone/Acet 7.5/325 mg [[place] 7.5-325 mg] 1 tab PO Q4H PRN #42 tablet 01/30 [Rx] 3 Allergy/AdvReac Type Severity Reaction Status Date / Time piperacillin [From Zosyn] Allergy Hives Verified 01/25/17 21:35 Sulfa (Sulfonamide Allergy Rash Verified 01/26/17 12:52 Antibiotics) tazobactam [From Zosyn] Allergy Hives Verified 01/25/17 21:35 All Systems PM: A 10-system review of systems was performed and is negative for pertinent findings except as documented above in the HPI. - Constitutional Constitutional: chills, fever(s), malaise, no night sweats - EENT Eyes: no change in vision, no discharge, no pain, no photophobia Ears: no ear discharge, no ear pain, no tinnitus Nose, mouth and throat: no dysphagia, no nasal discharge, no neck pain, no sore throat - Cardiovascular Cardiovascular ROS IM: diaphoresis, no chest pain, no dyspnea, no lightheadedness, no palpitations, no syncope - Respiratory Respiratory: cough, no dyspnea, no wheezing, no excessive phlegm production - Gastrointestinal Gastrointestinal: abdominal pain, nausea, vomiting, no diarrhea, no hematemesis , no hematochezia, no melena - Genitourinary Genitourinary: no change in urinary stream, no dysuria, no flank pain, no hematuria - Musculoskeletal Musculoskeletal ROS IM: no numbness, no tingling - Integumentary Integumentary IM: no rash, no unusual bruising - Neurological Neurological ROS: no confusion, no convulsions, no focal weakness, no numbness, no tingling, no tremor(s) - Hematologic/Lymphatic Hematologic/Lymphatic: no easy bruising - Constitutional Vitals: Temp Pulse Resp BP Pulse Ox 98.5 F 81 18 141/60 97 02/10/17 13:18 02/10/17 13:18 02/10/17 13:18 02/10/17 13:18 02/10/17 13:18 General appearance: Present: A&O X 3, pleasant, no acute distress - Head Head exam: Present: atraumatic, normocephalic - Eye Eye exam: Present: PERRL, conjuntiva pink, sclera anicteric Pupils: Present: PERRL - Neck Neck exam general surgery: Present: supple, trachea midline. Absent: lymphadenopathy - Respiratory Respiratory exam: Present: CTAB. Absent: accessory muscle use, rales, rhonchi, wheezes - Cardiovascular Cardiovascular exam: Present: RRR, +S1, +S2. Absent: diastolic murmur, gallop, rubs, systolic murmur - GI/Abdominal GI/Abdominal exam: Present: diminished bowel sounds, normal bowel sounds, soft, tenderness, no peritoneal signs. Absent: distended Additional comments: JUDAH drain in RUQ with brown purulent drainage. - Extremities Exam Extremities exam: Present: warm, radial pulses palpable and symmetrical. Absent : calf tenderness, cyanotic, pedal edema - Neurological Exam Neurological exam: Present: CN II-XII intact, oriented X3, no focal deficits. Absent: pronater drift, facial droop, speech deficit - Skin Skin exam: Present: dry, erythema (surrounding JUDAH insertion site), intact Internal Med - H&P Results - Labs CBC & Chem 7: 02/10/17 15:58 02/10/17 15:58 Labs: Labs from [facility] 02/09/17 WBC 4.0 Hgb 9.5 Hct 29.7 Plt 132 Na 136 K 3.5 Cl 100 CO2 29 BUN 12 Cr 0.83 Glu 119 albumin 1.9 <CrescencioDemar - Last Filed: 02/10/17 18:48> Date of Encounter: 02/10/17 Internal Medicine - H&P: HPI History of present illness: Ms. Valenzuela is a 76 year old female All Systems PM: A 10-system review of systems was performed and is negative for pertinent findings except as documented above in the HPI. - Constitutional Vitals: Temp Pulse Resp BP Pulse Ox 98.2 F 89 16 126/56 99 02/10/17 15:46 02/10/17 15:46 02/10/17 15:46 02/10/17 15:46 02/10/17 15:46 Internal Med - H&P Results - Labs CBC & Chem 7: 02/10/17 15:58 02/10/17 15:58 Labs: Short CBC 02/10/17 Range/Units 15:58 WBC 3.2 L (4.3-11.1) K/mcL Hgb 9.4 L (11.5-15.4) g/dL Hct 30.4 L (35.3-44.9) % Plt Count 149 (140-400) K/mcL Neutrophils # 1.9 (1.6-8.9) K/mcL BMP 02/10/17 15:58 Sodium 139 Potassium 3.8 Chloride 106 Carbon Dioxide 26 BUN 6 L Creatinine 0.60 Glucose 102 H Calcium 8.2 L Liver Function 02/10/17 Range/Units 15:58 Total Bilirubin 0.5 (0.2-1.2) mg/dL AST 12 (5-34) Units/L ALT 8 (0-55) Units/L Alkaline Phosphatase 67 (38-126) Units/L Albumin 1.9 L (3.5-5.0) g/dL Urine 02/10/17 Range/Units 16:40 Urine Color Yellow (Yellow) Urine Clarity Clear (Clear) Urine pH 6.0 (5.0-8.0) pH Units Ur Specific [place] 1.020 (1.010-1.025) Urine Protein 30 H (Neg-Trace) mg/dL Urine Glucose (UA) Normal (Normal) mg/dL - Impressions ITS Impressions Chest X-Ray 02/10/17 15:37 IMPRESSION: Small amount of bilateral airspace disease most likely atelectasis, less likely pneumonia. D/ / Hunter Vizcaino MD / Hunter Vizcaino MD Interpreting Provider: Hunter Vizcaino MD - Attending Attestation I have personally performed a face to face evaluation on this patient and I discussed the assessment and plan with the nurse practitioner. I have reviewed and agree with the documented care plan. History and Exam by me shows: Ms. Valenzuela is a 76 year old female with rheumatoid arthritis, GERD, hypothyroid , history of kidney stones and history of pancreatitis and recent history of cholecystectomy earlier this month presented [facility] on the with anemia and fever, although she was transfused, started on antibiotics , CT of her abdomen showed low density fluid collection near the gallbladder fossa with biliary stent and surgical drains in place, her fevers persisted and her abdominal pain and nausea persisted so team decided to transfer her to [facility]. Dr. Chang her surgeon was consulted and he agreed to accept for admission. Patient reports that she has had chills and sweats, abdominal pain, nausea and vomiting. She denies any lightheadedness, chest pain, palpitations, shortness of breath. Reports her cough. Recent labs from [facility] showed white blood cell count of 4.0, hemoglobin of 9.5, LFTs were within normal limits, albumin was low at 1.9. Gen: patient is alert and oriented, in no acute distress. Heart has regular rate and rhythm Lungs are clear bilaterally to auscultation Abd: JUDAH drainage tube + with mild purulent discharge, moderate tenderness around the JUDAH tube area. a/p 1. Acute intra abdomen infection 2. Sepsis - does meet sepsis croteria with fever and leukopenia source of inf as abdomen As per hospitalist from Dr. Sewell wound cx growing Strep and MRSA so will start abx Invanz and Vancomycin will get CXR too, check UA Consulted surgery
[2017-02-10] MEDS ORDERED: Acetaminophen 325 MG TABLET PO PRN (15:33)
[2017-02-10] MEDS ORDERED: Naloxone 0.4 MG/ML INJ IVP PRN (15:33)
[2017-02-10] MEDS ORDERED: *HR* HYDROcodone/Acet 5/325 mg TABLET PO PRN (15:33)
[2017-02-10] MEDS ORDERED: *HR* Morphine 2 MG/ML SYRINGE IVP PRN (15:39)
[2017-02-10] MEDS ORDERED: Vancomycin 750 MG in D5% in Water 250 ML IVPB SCH (16:00)
[2017-02-10 16:06] LABS: Hematocrit 30.4 % (35.3-44.9); Hemoglobin 9.4 g/dL (11.5-15.4); Mean Corpuscular HGB Conc 30.9 g/dL (31.6-35.5); Mean Corpuscular Hemoglobin 28.6 pg (28.0-33.3); Mean Corpuscular Volume 92.4 fL (83.0-100.0); Mean Platelet Volume 12.3 fL (9.4-12.4); Platelet Count 149 K/mcL (140-400); Red Blood Count 3.29 M/mcL (3.82-4.97); Red Cell Distribution Width 17.1 % (11.5-14.5)
[2017-02-10 16:20] LABS: Alanine Aminotransferase 8 Units/L (0-55); Albumin/Globulin Ratio 0.5 (1.1-2.2); Alkaline Phosphatase 67 Units/L (38-126); Aspartate Amino Transferase 12 Units/L (5-34); BUN/Creatinine Ratio 10 (6-26); Bilirubin,Total 0.5 mg/dL (0.2-1.2); Blood Urea Nitrogen 6 mg/dL (7-20); Calcium 8.2 mg/dL (8.6-10.8); Carbon Dioxide 26 mEq/L (19-29); Chloride 106 mEq/L (98-109); Globulin 3.9 g/dL (2.4-3.5); Glucose 102 mg/dL (70-99); Magnesium 1.5 mg/dL (1.6-2.6); Osmolality,Calculated 286 (280-300); Potassium 3.8 mEq/L (3.5-4.5); Sodium 139 mEq/L (136-145); Total Protein 5.8 g/dL (6.0-8.3); eGFR For African Americans > 60 (> 60); eGFR For Non-African Americans > 60 (> 60)
[2017-02-10 16:24] LABS: Albumin 1.9 g/dL (3.5-5.0)
[2017-02-10 16:40] LABS: Basophils # 0.1 K/mcL (0.0-0.2); Lymphocytes # 1.1 K/mcL (0.6-4.6); Monocytes # 0.1 K/mcL (0.0-1.3); Neutrophils # 1.9 K/mcL (1.6-8.9); Reactive Lymphocytes Present (Not Present)
[2017-02-10 16:41] LABS: Anisocytosis 1+ (Not Present); Platelet Estimate Normal (Normal)
[2017-02-10 17:09] LABS: Bacteria,Urine None Seen per hpf (None-Few); Hyaline Casts,Urine Few per lpf (None-Few); Squamous Epithelial Cell,Urine Many per lpf (None-Few)
[2017-02-10 17:10] LABS: Bilirubin,Urine Negative (Negative); Blood,Urine Small (Negative); Clarity,Urine Clear (Clear); Color,Urine Yellow (Yellow); Glucose,Urine (UA) Normal (Normal); Ketones,Urine Negative (Negative); Leukocyte Esterase,Urine Trace (Negative); Nitrite,Urine Negative (Negative); Protein,Urine 30 mg/dL (Neg-Trace); Urobilinogen,Urine Normal (Normal)
[2017-02-10] MEDS: *HR* Heparin 5,000 UNIT/ML VIAL SQ SCH (17:13)
[2017-02-10] MEDS: 0.9 % Sodium Chloride 1,000 ML IVC SCH (17:13)
[2017-02-10] MEDS: Ertapenem 1,000 MG in 0.9 % Sodium Chloride Mini Bag 100 ML IVPB SCH (17:14)
[2017-02-10] MEDS: Vancomycin 750 MG in D5% in Water 250 ML IVPB SCH (18:28)
[2017-02-10] MEDS ORDERED: Magnesium Sulfate 2 GM in D5% in Water 100 ML IVPB ONE (19:04)
[2017-02-10] MEDS: Ondansetron 4 MG/2 ML VIAL IVP PRN (20:38)
[2017-02-11] MEDS: *HR* Heparin 5,000 UNIT/ML VIAL SQ SCH ×3 (00:11→20:41)
[2017-02-11 04:44] LABS: Eosinophils # 0.1 K/mcL (0.0-0.6); Eosinophils % 3.3 %; Hemoglobin 9.7 g/dL (11.5-15.4); Immature Granulocytes % 2.3 % (0-4); Lymphocytes # 1.5 K/mcL (0.6-4.6); Lymphocytes % 49.2 %; Mean Corpuscular HGB Conc 31.3 g/dL (31.6-35.5); Mean Corpuscular Volume 92.5 fL (83.0-100.0); Mean Platelet Volume 12.9 fL (9.4-12.4); Monocytes # 0.2 K/mcL (0.0-1.3); Monocytes % 6.5 %; Neutrophils # 1.2 K/mcL (1.6-8.9); Platelet Count 166 K/mcL (140-400); Red Blood Count 3.35 M/mcL (3.82-4.97); Red Cell Distribution Width 17.1 % (11.5-14.5); Segmented Neutrophils % 37.7 %
[2017-02-11] MEDS: Vancomycin 750 MG in D5% in Water 250 ML IVPB SCH ×2 (04:50→16:55)
[2017-02-11 05:02] LABS: BUN/Creatinine Ratio 8 (6-26); Carbon Dioxide 24 mEq/L (19-29); Chloride 106 mEq/L (98-109); Glucose 94 mg/dL (70-99); Osmolality,Calculated 285 (280-300); Potassium 3.6 mEq/L (3.5-4.5); Sodium 139 mEq/L (136-145); eGFR For African Americans > 60 (> 60); eGFR For Non-African Americans > 60 (> 60)
[2017-02-11 05:07] LABS: Blood Urea Nitrogen 5 mg/dL (7-20)
[2017-02-11 05:19] LABS: Hypochromasia Present (Not Present); Platelet Estimate Normal (Normal); Reactive Lymphocytes Present (Not Present)
[2017-02-11] MEDS: Ondansetron 4 MG/2 ML VIAL IVP PRN (08:14)
[2017-02-11] MEDS: Ertapenem 1,000 MG in 0.9 % Sodium Chloride Mini Bag 100 ML IVPB SCH (08:23)
--- NOTE | 2017-02-11 10:07 | Internal Med Progress Note ---
<Abdoulaye Aguero - Last Filed: 02/11/17 15:07> Date of Encounter: 02/11/17 Time of Encounter: 10:03 - Assessment and plan (1) Intra-abdominal infection Current Visit: Yes Status: Acute Assessment and plan: s/p laproscopic cholecystectomy 01/26/17. Patient also had ERCP with stent placement on 02/09/17 for concern for bile leak. JUDAH drain in place with dark colored fluid draining. fluid from JUDAH drain had gram negative rods, gram positive cocci Plan: appreciate general surgery recommendations. possible CT abdomen/pelvis with IV and PO contrast if needed. continue vancomycin and ertapenem, day 2. will de-escalate based on cultures. blood cultures pending. continue to monitor JUDAH drain output. (2) Sepsis Current Visit: Yes Status: Acute Assessment and plan: plan as above Qualifiers: Sepsis type: methicillin resistant Staphylococcus aureus Qualified Code(s) : A41.02 - Sepsis due to Methicillin resistant Staphylococcus aureus (3) Bile leak, postoperative Current Visit: No Status: Acute Assessment and plan: CT scan from prior hospital on 02/07 showed 2.7cm low density fluid collection in the gallbladder fossa. (4) Abdominal pain Current Visit: No Status: Acute Assessment and plan: continue with pain management. Qualifiers: Abdominal location: generalized Qualified Code(s): R10.84 - Generalized abdominal pain (5) Nausea and vomiting Current Visit: No Status: Resolved Assessment and plan: resolved Qualifiers: Vomiting type: cyclical vomiting Vomiting Intractability: non-intractable Qualified Code(s): G43.A0 - Cyclical vomiting, not intractable (6) Rheumatoid arthritis Current Visit: No Status: Chronic Assessment and plan: continue methotrexate Qualifiers: Rheumatoid arthritis location: multiple sites Rheumatoid factor presence: unspecified presence Qualified Code(s): M06.9 - Rheumatoid arthritis, unspecified (7) DVT prophylaxis Current Visit: No Status: Acute Assessment and plan: heparin SQ - Subjective Interval history: 76 year old female evaluated at bedside. patient denies nausea, vomiting, diarrhea, fever, chills, chest pain, shortness of breath. she reports some abdominal pain, denies any further issues today. - Constitutional Vitals: Temp Pulse Resp BP Pulse Ox 98.6 F 85 16 135/90 97 02/11/17 06:57 02/11/17 08:30 02/11/17 06:57 02/11/17 06:57 02/11/17 08:30 General appearance: Present: A&O X 3, pleasant, no acute distress, answers questions appropriately - Head Head exam: Present: atraumatic, normocephalic - Neck Neck exam general surgery: Present: supple, trachea midline - Respiratory Respiratory exam: Present: CTAB - Cardiovascular Cardiovascular exam: Present: RRR, +S1, +S2 - GI/Abdominal GI/Abdominal exam: Present: distended, normal bowel sounds, soft, tenderness ( post op surgical tenderness. ) Additional comments: surgical scars clean, dry, intact. - Extremities Exam Extremities exam: Absent: cyanotic, pedal edema - Neurological Exam Neurological exam: Present: alert, oriented X3, no focal deficits - Psychiatric Psychiatric exam: Present: normal affect, normal mood - Skin Skin exam: Present: intact Internal Medicine: Result - Labs CBC & Chem 7: 02/11/17 03:30 02/11/17 03:30 Labs: Short CBC 02/10/17 02/11/17 Range/Units 15:58 03:30 WBC 3.2 L 3.1 L (4.3-11.1) K/mcL Hgb 9.4 L 9.7 L (11.5-15.4) g/dL Hct 30.4 L 31.0 L (35.3-44.9) % Plt Count 149 166 (140-400) K/mcL Neutrophils # 1.9 1.2 L (1.6-8.9) K/mcL BMP 02/10/17 02/11/17 15:58 03:30 Sodium 139 139 Potassium 3.8 3.6 Chloride 106 106 Carbon Dioxide 26 24 BUN 6 L 5 L Creatinine 0.60 0.62 Glucose 102 H 94 Calcium 8.2 L 8.0 L Liver Function 02/10/17 Range/Units 15:58 Total Bilirubin 0.5 (0.2-1.2) mg/dL AST 12 (5-34) Units/L ALT 8 (0-55) Units/L Alkaline Phosphatase 67 (38-126) Units/L Albumin 1.9 L (3.5-5.0) g/dL Urine 02/10/17 Range/Units 16:40 Urine Color Yellow (Yellow) Urine Clarity Clear (Clear) Urine pH 6.0 (5.0-8.0) pH Units Ur Specific [place] 1.020 (1.010-1.025) Urine Protein 30 H (Neg-Trace) mg/dL Urine Glucose (UA) Normal (Normal) mg/dL - Impressions Impressions Chest X-Ray 02/10/17 15:37 IMPRESSION: Small amount of bilateral airspace disease most likely atelectasis, less likely pneumonia. D/ / Hunter Vizcaino MD / Hunter Vizcaino MD Interpreting Provider: Hunter Vizcaino MD Consult Discharge Plan - Plan Referrals: John Real Jr, MD [Primary Care Provider] - 02/20/17 10:00 am (Please follow up with your primary care provider) <Rico Bassett - Last Filed: 02/11/17 19:29> Date of Encounter: 02/11/17 - Constitutional Vitals: Temp Pulse Resp BP Pulse Ox 98.5 F 81 20 150/68 97 02/11/17 19:01 02/11/17 19:01 02/11/17 19:01 02/11/17 19:01 02/11/17 19:01 Internal Medicine: Result - Labs CBC & Chem 7: 02/11/17 03:30 02/11/17 03:30 Labs: Short CBC 02/11/17 Range/Units 03:30 WBC 3.1 L (4.3-11.1) K/mcL Hgb 9.7 L (11.5-15.4) g/dL Hct 31.0 L (35.3-44.9) % Plt Count 166 (140-400) K/mcL Neutrophils # 1.2 L (1.6-8.9) K/mcL BMP 02/11/17 03:30 Sodium 139 Potassium 3.6 Chloride 106 Carbon Dioxide 24 BUN 5 L Creatinine 0.62 Glucose 94 Calcium 8.0 L - Attending Attestation I examined this patient and my medical decision-making was reviewed with the Resident Physician, Dr. Aguero. I agree with the documented findings, disposition and treatment plan as described except to the extent set forth below. My findings are summarized below: Patient reports no abdominal pain. She does complain of JUDAH insertion site tenderness Plan: Continue with IV antibiotics. Follow-up with general surgery. I reviewed her records from the outside hospital which shows growth of gram- positive cocci in clusters. Negative blood cultures.
--- NOTE | 2017-02-11 10:51 | General Surgery Consult Note ---
Date of Encounter: 02/11/17 Time of Encounter: 10:30 Assessment and Plan (1) Status post cholecystectomy Current Visit: Yes Status: Acute Lap moy 01/26/2017 ERCP and stent placement 02/09/2017 JUDAH drainage with purulent output Consideration for abd/pelvis CT with po and IV contrast pending clinical course (at this time she is pain free and asking to eat). Continue IV abx, Noted medicine placed orders for cultures. Repeat am labs. Regular diet (2) Leukopenia Current Visit: Yes Status: Chronic Qualifiers: Leukopenia type: other Qualified Code(s): D72.818 - Other decreased white blood cell count History of Present Illness Consult date: 02/11/17 (Dr. Mckeon) Reason for consult: other Requesting physician: Abdoulaye Aguero History of present illness: Jennifer Hawkins is a 76 year old female with a history of rheumatoid arthritis, Gerd, hypothyroid, kidney stones, pancreatitis, and a contributory history of s/p lap cholecystectomy on 01/26/2017 with JUDAH drain placement and s/ p ERCP with noted bile leak and temporary stent placement on 01/30/2017 (per [facility] notes tend to be removed in 2 months). She was discharged on 01/31/2017 and was readmitted on 02/10/2017 for fevers, nausea, and lack of appetite. She presented to an outside hospital or abdominal pain, nausea, and fevers. She was noted to have a white cell count of 4.0, hemoglobin of 9.5, and LFTs were in normal limits. She was alert and oriented and was transferred to [facility] [place]. She was admitted by the hospitalist group and treated for a presumed intra-abdominal infection. Per record review, JUDAH drainage reportedly grew MRSA at outside hospital. She was given Cipro, flagyl and then switched to Primaxin at outside hospital. Blood cultures have been obtained as well as JUDAH cultures and results are pending. Her chest x-ray was consistent with atelectasis and less likely pneumonia. We have been asked to evaluate the patient for consideration of intra-abdominal infection. She reports nausea, vomiting, and fevers (unsure if Tmax) as well as intermittent diarrhea at home. She reports in acute increase in discomfort around the drain as well as changes in the output from the drain. She reports that the output has become cloudy and foul-smelling. She denies headache, dizziness, syncope, near syncope, chest pain, shortness of breath, or weakness. Past Med Surg Social Fam HX - Past Medical History Medical history: GERD, kidney stones, migraine, RA, thyroid disease Psychiatric history: no psych history - Past Surgical History Surgical History: appendectomy, cataract, cholecystectomy, knee replacement - Social History Smoking Status: Never smoker Smokeless Tobacco Status: No Alcohol use: none Drug use: none - Family History Mother Family Member Ethnicity: Non- Living Status: Hx Family Cardiac Disorders: Yes Hx Family Respiratory Disorders: No Hx Family Cancer: No Hx Family GI Disorders: No Hx Family Endocrine Disorder: Yes (diabetes) Father History Unknown: Yes Adopted: Yes Living Status: Hx Family Cancer: Yes Medications and Allergies Ergocalciferol (VITAMIN D2) [Vitamin D2] 50,000 unit PO QWEEK 09/02/16 [History] Ferrous Sulfate [Iron] 325 mg PO DAILY 09/02/16 [History] Folic Acid 1 mg PO DAILY 09/02/16 [History] Methotrexate [Otrexup] 15 mg PO MALLOY 09/02/16 [History] Pantoprazole Sodium 40 mg PO DAILY 09/02/16 [History] Naproxen [Naprosyn] 500 mg PO BID 01/26/17 [History] Docusate [Colace] 100 mg PO BID #60 capsule 01/30/17 [Rx] HYDROcodone/Acet 7.5/325 mg [[place] 7.5-325 mg] 1 tab PO Q4H PRN #42 tablet 01/30 [Rx] 3 Allergy/AdvReac Type Severity Reaction Status Date / Time piperacillin [From Zosyn] Allergy Hives Verified 02/11/17 08:57 Sulfa (Sulfonamide Allergy Rash Verified 02/11/17 08:57 Antibiotics) tazobactam [From Zosyn] Allergy Hives Verified 02/11/17 08:57 Review of Systems All systems PM: A 10-system review of systems was performed and is negative for pertinent findings except as documented above in the HPI. General Surgery Exam Initial Vital Signs Temp Pulse Resp BP Pulse Ox 98.5 F 81 18 141/60 97 02/10/17 13:18 02/10/17 13:18 02/10/17 13:18 02/10/17 13:18 02/10/17 13:18 - General physical appearance well developed, well nourished, no distress, moderate pain - Eyes normal ocular movement - ENT atraumatic, normocephalic - Neck trachea midline - Respiratory normal expansion, normal respiratory effort, clear to auscultation - Cardiovascular Cardiovascular exam: Present: RRR, murmurs - Abdomen Abdomen general surgery: Present: bowel sounds present, soft, tender ( Exquisitely tender right lower quadrant), wound (JUDAH drain with cloudy, dark, material consistent with purulent material. There is no drainage around JUDAH and the skin is slightly irritated.) Hernia: Present: none - Incision Incision: Present: clean and dry, intact - Integumentary Integumentary general surgery: Present: warm and dry - Neurologic Present: CN 2-12 grossly intact - Musculoskeletal Present: normal posture, other (Deformities r/t RA ) - Psychiatric Psychiatric general surgery: Present: A&Ox3, appropriate, oriented to person, oriented to place, oriented to time, speech is normal, memory intact Exam Initial Vital Signs Temp Pulse Resp BP Pulse Ox 98.5 F 81 18 141/60 97 02/10/17 13:18 02/10/17 13:18 02/10/17 13:18 02/10/17 13:18 02/10/17 13:18 Results - Labs 02/11/17 03:30 02/11/17 03:30 Abnormal lab results WBC 3.1 K/mcL (4.3-11.1) L 02/11/17 03:30 RBC 3.35 M/mcL (3.82-4.97) L 02/11/17 03:30 Hgb 9.7 g/dL (11.5-15.4) L 02/11/17 03:30 Hct 31.0 % (35.3-44.9) L 02/11/17 03:30 MCHC 31.3 g/dL (31.6-35.5) L 02/11/17 03:30 RDW 17.1 % (11.5-14.5) H 02/11/17 03:30 MPV 12.9 fL (9.4-12.4) H 02/11/17 03:30 Neutrophils # 1.2 K/mcL (1.6-8.9) L 02/11/17 03:30 Reactive Lymphocytes Present (Not Present) A 02/11/17 03:30 Hypochromasia Present (Not Present) A 02/11/17 03:30 Anisocytosis 1+ (Not Present) A 02/10/17 15:58 ESR 107 mm/hr (0-15) H 02/10/17 15:58 BUN 5 mg/dL (7-20) L 02/11/17 03:30 Calcium 8.0 mg/dL (8.6-10.8) L 02/11/17 03:30 Magnesium 1.5 mg/dL (1.6-2.6) L 02/10/17 15:58 C-Reactive Protein 207 mg/L (Less than 5) H 02/10/17 15:58 Serum Total Protein 5.8 g/dL (6.0-8.3) L 02/10/17 15:58 Albumin 1.9 g/dL (3.5-5.0) L 02/10/17 15:58 Globulin 3.9 g/dL (2.4-3.5) H 02/10/17 15:58 Albumin/Globulin Ratio 0.5 (1.1-2.2) L 02/10/17 15:58 Urine Protein 30 mg/dL (Neg-Trace) H 02/10/17 16:40 Urine Blood Small (Negative) H 02/10/17 16:40 Ur Leukocyte Esterase Trace (Negative) H 02/10/17 16:40 Urine Microscopic RBC 5-15 per hpf (0-3) H 02/10/17 16:40 Urine Microscopic WBC 5-15 per hpf (0-3) H 02/10/17 16:40 Ur Squamous Epith Cells Many per lpf (None-Few) H 02/10/17 16:40 Diabetes panel 02/10/17 02/11/17 Range/Units 15:58 03:30 Sodium 139 139 (136-145) mEq/L Potassium 3.8 3.6 (3.5-4.5) mEq/L Chloride 106 106 (98-109) mEq/L Carbon Dioxide 26 24 (19-29) mEq/L BUN 6 L 5 L (7-20) mg/dL Creatinine 0.60 0.62 (0.57-1.11) mg/dL Glucose 102 H 94 (70-99) mg/dL Calcium 8.2 L 8.0 L (8.6-10.8) mg/dL AST 12 (5-34) Units/L ALT 8 (0-55) Units/L Alkaline Phosphatase 67 (38-126) Units/L Albumin 1.9 L (3.5-5.0) g/dL Calcium panel 02/10/17 02/11/17 Range/Units 15:58 03:30 Calcium 8.2 L 8.0 L (8.6-10.8) mg/dL Albumin 1.9 L (3.5-5.0) g/dL Pituitary panel 02/10/17 02/11/17 Range/Units 15:58 03:30 Sodium 139 139 (136-145) mEq/L Potassium 3.8 3.6 (3.5-4.5) mEq/L Chloride 106 106 (98-109) mEq/L Carbon Dioxide 26 24 (19-29) mEq/L BUN 6 L 5 L (7-20) mg/dL Creatinine 0.60 0.62 (0.57-1.11) mg/dL Glucose 102 H 94 (70-99) mg/dL Calcium 8.2 L 8.0 L (8.6-10.8) mg/dL Adrenal panel 02/10/17 02/11/17 Range/Units 15:58 03:30 Sodium 139 139 (136-145) mEq/L Potassium 3.8 3.6 (3.5-4.5) mEq/L Chloride 106 106 (98-109) mEq/L Carbon Dioxide 26 24 (19-29) mEq/L BUN 6 L 5 L (7-20) mg/dL Creatinine 0.60 0.62 (0.57-1.11) mg/dL Glucose 102 H 94 (70-99) mg/dL Calcium 8.2 L 8.0 L (8.6-10.8) mg/dL Total Bilirubin 0.5 (0.2-1.2) mg/dL AST 12 (5-34) Units/L ALT 8 (0-55) Units/L Alkaline Phosphatase 67 (38-126) Units/L Albumin 1.9 L (3.5-5.0) g/dL All other labs normal. - Imaging Additional studies: Chest X-Ray 02/10/17 15:37 IMPRESSION: Small amount of bilateral airspace disease most likely atelectasis, less likely pneumonia. D/ / Hunter Vizcaino MD / Hunter Vizcaino MD Interpreting Provider: Hunter Vizcaino MD Consult Discharge Plan - Plan Referrals: John Real Jr, MD [Primary Care Provider] - 02/20/17 10:00 am (Please follow up with your primary care provider)
[2017-02-11] MEDS: 0.9 % Sodium Chloride 1,000 ML IVC SCH (14:09)
[2017-02-11] MEDS ORDERED: Lidocaine Jelly 2% 30 ML JEL..ML. TP PRN (15:59)
[2017-02-11] MEDS ORDERED: Lidocaine Jelly 6ml 1 APPL/6 ML JEL.PF.APP TP PRN (16:15)
[2017-02-12] MEDS: 0.9 % Sodium Chloride 1,000 ML IVC SCH ×2 (04:13→16:59)
[2017-02-12 05:06] LABS: Hematocrit 29.6 % (35.3-44.9); Hemoglobin 9.2 g/dL (11.5-15.4); Lymphocytes # 1.6 K/mcL (0.6-4.6); Mean Corpuscular HGB Conc 31.1 g/dL (31.6-35.5); Mean Corpuscular Hemoglobin 28.9 pg (28.0-33.3); Mean Corpuscular Volume 93.1 fL (83.0-100.0); Mean Platelet Volume 11.7 fL (9.4-12.4); Platelet Count 195 K/mcL (140-400); Red Blood Count 3.18 M/mcL (3.82-4.97); Red Cell Distribution Width 16.9 % (11.5-14.5)
[2017-02-12 05:09] LABS: BUN/Creatinine Ratio 6 (6-26); Calcium 7.9 mg/dL (8.6-10.8); Carbon Dioxide 25 mEq/L (19-29); Chloride 108 mEq/L (98-109); Glucose 97 mg/dL (70-99); Osmolality,Calculated 289 (280-300); Potassium 3.5 mEq/L (3.5-4.5); Sodium 141 mEq/L (136-145); eGFR For African Americans > 60 (> 60); eGFR For Non-African Americans > 60 (> 60)
[2017-02-12 05:14] LABS: Blood Urea Nitrogen 4 mg/dL (7-20)
[2017-02-12] MEDS: Vancomycin 750 MG in D5% in Water 250 ML IVPB SCH ×2 (05:30→17:00)
[2017-02-12 05:52] LABS: Eosinophils # 0.4 K/mcL (0.0-0.6); Monocytes # 0.6 K/mcL (0.0-1.3); Neutrophils # 0.9 K/mcL (1.6-8.9)
[2017-02-12 05:53] LABS: Anisocytosis 1+ (Not Present); Platelet Estimate Normal (Normal); Reactive Lymphocytes Present (Not Present)
[2017-02-12] MEDS: *HR* Heparin 5,000 UNIT/ML VIAL SQ SCH ×2 (08:27→20:18)
[2017-02-12] MEDS: Folic Acid 1 MG TABLET PO SCH (08:27)
[2017-02-12] MEDS: Ertapenem 1,000 MG in 0.9 % Sodium Chloride Mini Bag 100 ML IVPB SCH (08:27)
--- NOTE | 2017-02-12 08:43 | Internal Med Progress Note ---
<Abdoulaye Aguero - Last Filed: 02/12/17 16:17> Date of Encounter: 02/12/17 Time of Encounter: 08:41 - Assessment and plan (1) Intra-abdominal infection Current Visit: Yes Status: Acute Assessment and plan: s/p laproscopic cholecystectomy 01/26/17. Patient also had ERCP with stent placement on 02/09/17 for concern for bile leak. JUDAH drain in place with dark colored fluid draining. fluid from JUDAH drain had gram negative rods, gram positive cocci Plan: appreciate general surgery recommendations. no current need for re imagin, per surgery. continue vancomycin and ertapenem, day 3. will de-escalate based on cultures. prelim cultures grew gram negative rods. blood cultures no growth. continue to monitor JUDAH drain output. (2) Sepsis Current Visit: Yes Status: Resolved Assessment and plan: currently resolved. plan as above Qualifiers: Sepsis type: sepsis due to unspecified organism Qualified Code(s): A41.9 - Sepsis, unspecified organism (3) Bile leak, postoperative Current Visit: No Status: Acute Assessment and plan: CT scan from prior hospital on 02/07 showed 2.7cm low density fluid collection in the gallbladder fossa. significantly decreased output from JUDAH drain (4) Abdominal pain Current Visit: No Status: Acute Assessment and plan: continue with pain management. Qualifiers: Abdominal location: generalized Qualified Code(s): R10.84 - Generalized abdominal pain (5) Rheumatoid arthritis Current Visit: No Status: Chronic Assessment and plan: patient on methotrexate Qualifiers: Rheumatoid arthritis location: multiple sites Rheumatoid factor presence: unspecified presence Qualified Code(s): M06.9 - Rheumatoid arthritis, unspecified (6) DVT prophylaxis Current Visit: No Status: Acute Assessment and plan: heparin SQ - Subjective Interval history: 76 year old female evaluated at bedside. patient denies nausea, vomiting, diarrhea, fever, chills, chest pain, shortness of breath. she reports some abdominal pain, denies any further issues today. - Constitutional Vitals: Temp Pulse Resp BP Pulse Ox 98.0 F 92 16 150/70 99 02/12/17 07:04 02/12/17 07:04 02/12/17 07:04 02/12/17 07:04 02/12/17 07:04 General appearance: Present: A&O X 3, pleasant, no acute distress, answers questions appropriately - Head Head exam: Present: atraumatic, normocephalic - Neck Neck exam general surgery: Present: supple, trachea midline - Respiratory Respiratory exam: Present: CTAB. Absent: rhonchi, wheezes - Cardiovascular Cardiovascular exam: Present: RRR, +S1, +S2 - GI/Abdominal GI/Abdominal exam: Present: normal bowel sounds, soft, tenderness. Absent: distended Additional comments: JUDAH drain in place with minimal drainage. abdominal scars clean, dry, intact. expected post op abdominal tenderness present. - Extremities Exam Additional comments: severe ulnar deviation of fingers and toes. - Neurological Exam Neurological exam: Present: alert, oriented X3, no focal deficits - Psychiatric Psychiatric exam: Present: normal affect, normal mood - Skin Skin exam: Present: intact. Absent: cyanosis Internal Medicine: Result - Labs CBC & Chem 7: 02/12/17 04:34 02/12/17 04:34 Labs: Short CBC 02/12/17 Range/Units 04:34 WBC 3.5 L (4.3-11.1) K/mcL Hgb 9.2 L (11.5-15.4) g/dL Hct 29.6 L (35.3-44.9) % Plt Count 195 (140-400) K/mcL Neutrophils # 0.9 L (1.6-8.9) K/mcL BMP 02/12/17 04:34 Sodium 141 Potassium 3.5 Chloride 108 Carbon Dioxide 25 BUN 4 L Creatinine 0.63 Glucose 97 Calcium 7.9 L Consult Discharge Plan - Plan Referrals: John Real Jr, MD [Primary Care Provider] - 02/20/17 10:00 am (Please follow up with your primary care provider) Angelika Lim CNP [Advanced Practice Nurse] - 02/19/17 2:00 pm Pete Sandhu MD [Partnered Physician] - 03/05/17 3:50 pm () <Rico Bassett - Last Filed: 02/13/17 08:11> Date of Encounter: 02/13/17 - Constitutional Vitals: Temp Pulse Resp BP Pulse Ox 98.3 F 85 14 146/74 94 02/13/17 06:38 02/13/17 06:38 02/13/17 06:38 02/13/17 06:38 02/13/17 06:38 Internal Medicine: Result - Labs CBC & Chem 7: 02/12/17 04:34 02/12/17 04:34 - Attending Attestation I examined this patient and my medical decision-making was reviewed with the Resident Physician, Dr. Aguero. I agree with the documented findings, disposition and treatment plan as described except to the extent set forth below. I have independently obtained history and examined the patient and my findings are summarized below: Patient is in no acute distress. Awake alert and oriented 3. Heart regular. Lungs are clear. Abdomen is soft and nontender. Plan: Continue with IV antibiotics. We will obtain updated culture results from the outside hospital today. Follow-up with general surgery. Narrow antibiotic therapy according to sensitivities. Follow-up anemia studies. Working diagnosis: Anemia of chronic disease
--- NOTE | 2017-02-12 11:02 | General Surgery Progress Note ---
Date of Encounter: 02/12/17 Time of Encounter: 10:00 - Assessment and Plan (1) Status post cholecystectomy Current Visit: Yes Status: Acute Lap moy 01/26/2017 ERCP and stent placement 02/09/2017 JUDAH drainage output clearing and is more serous today (will plan to change JUDAH bulb) No need for imaging at this time as the patient is clinically improving with treatment Continue IV abx (vancomycin and invanz per hospitalist), Noted medicine placed orders for cultures (from JUDAH drain) Blood cultures with no growth at this time Regular diet (2) Leukopenia Current Visit: Yes Status: Chronic Improving IV antibiotics per the hospitalist service Qualifiers: Leukopenia type: other Qualified Code(s): D72.818 - Other decreased white blood cell count Subjective Patient reports: no new complaints, feels better, tolerating a regular diet, voiding w/o difficulty, flatus, bowel movement, diarrhea, afebrile Objective Vital Signs - Last 8 Hours Temp Pulse Resp BP Pulse Ox 02/12/17 08:38 79 02/12/17 07:04 98.0 F 92 16 150/70 99 02/12/17 05:18 97.9 F 81 16 137/63 99 Intake and Output 02/11/17 02/12/17 02/12/17 23:59 07:59 15:59 Intake Total 250 / 250 1000 / 1000 240 / 240 Output Total 305 / 305 900 / 900 Balance -55 / -55 100 / 100 240 / 240 Intake: IV Fluids 250 / 250 1000 / 1000 0.9 % Sodium Chloride 1,000 ML 1000 / 1000 @ 75 mls/hr IVC .[id number] MARIA L Rx #:[id number] Vancocin 750 MG In Dextrose 5% 250 / 250 250 ML @ 250 mls/hr IVPB Q12H MARIA L Rx#:[id number] Oral 240 / 240 Output: Urine 300 / 300 900 / 900 Wound Drainage 5 / 5 Right Upper Abdomen 5 / 5 Other: Meal Breakfast Percent of Meal Consumed 30% Stool Size Moderate Stool Consistency loose liquid # Voids 1 Weight 53.7 kg Patient Weight 02/12/17 23:59 Weight 53.7 kg - General physical appearance well developed, well nourished, no distress, no pain - Eyes normal ocular movement - ENT normal mucosa, atraumatic, normocephalic - Neck Neck exam: trachea midline - Respiratory normal respiratory effort, clear to auscultation - Cardiovascular Cardiovascular exam: Present: RRR - Abdomen Abdomen: Present: bowel sounds present, soft, tender (mild tenderness at drain insertion site), wound (RUQ JUDAH drain to bulb suction with small amount of cloudy , yellow drainage noted (has significantly cleared up from yesterday)) - Incision Incision: Present: clean and dry, intact - Neurologic CN 2-12 grossly intact - Musculoskeletal normal gait, normal posture - Psychiatric oriented to time, oriented to person, oriented to place, speech is normal, memory intact - Labs 02/12/17 04:34 02/12/17 04:34 Diabetes panel 02/12/17 Range/Units 04:34 Sodium 141 (136-145) mEq/L Potassium 3.5 (3.5-4.5) mEq/L Chloride 108 (98-109) mEq/L Carbon Dioxide 25 (19-29) mEq/L BUN 4 L (7-20) mg/dL Creatinine 0.63 (0.57-1.11) mg/dL Glucose 97 (70-99) mg/dL Calcium 7.9 L (8.6-10.8) mg/dL Calcium panel 02/12/17 Range/Units 04:34 Calcium 7.9 L (8.6-10.8) mg/dL Pituitary panel 02/12/17 Range/Units 04:34 Sodium 141 (136-145) mEq/L Potassium 3.5 (3.5-4.5) mEq/L Chloride 108 (98-109) mEq/L Carbon Dioxide 25 (19-29) mEq/L BUN 4 L (7-20) mg/dL Creatinine 0.63 (0.57-1.11) mg/dL Glucose 97 (70-99) mg/dL Calcium 7.9 L (8.6-10.8) mg/dL Adrenal panel 02/12/17 Range/Units 04:34 Sodium 141 (136-145) mEq/L Potassium 3.5 (3.5-4.5) mEq/L Chloride 108 (98-109) mEq/L Carbon Dioxide 25 (19-29) mEq/L BUN 4 L (7-20) mg/dL Creatinine 0.63 (0.57-1.11) mg/dL Glucose 97 (70-99) mg/dL Calcium 7.9 L (8.6-10.8) mg/dL Consult Discharge Plan - Plan Referrals: John Real Jr, MD [Primary Care Provider] - 02/20/17 10:00 am (Please follow up with your primary care provider) Angelika Lim CNP [Advanced Practice Nurse] - 02/19/17 2:00 pm Pete Sandhu MD [Partnered Physician] - 03/05/17 3:50 pm () - Attending Attestation For this encounter, I have reviewed the TRIPE FINISHER or PA documentation, treatment plan, and medical decision making; and I have had face to face time with this patient.
[2017-02-13] MEDS: 0.9 % Sodium Chloride 1,000 ML IVC SCH (06:05)
[2017-02-13] MEDS: Vancomycin 750 MG in D5% in Water 250 ML IVPB SCH (06:05)
[2017-02-13 06:17] LABS: % Iron Saturation 42 % (15-50); Iron 52 mcg/dL (50-170); Transferrin 88 mg/dL (180-382)
[2017-02-13 06:28] LABS: Ferritin 598 ng/ml (5-204)
[2017-02-13 09:32] LABS: Basophils % 0.4 %; Eosinophils # 0.2 K/mcL (0.0-0.6); Eosinophils % 8.8 %; Hematocrit 31.5 % (35.3-44.9); Hemoglobin 9.6 g/dL (11.5-15.4); Immature Granulocytes % 0.7 % (0-4); Lymphocytes # 1.4 K/mcL (0.6-4.6); Lymphocytes % 50.4 %; Mean Corpuscular HGB Conc 30.5 g/dL (31.6-35.5); Mean Corpuscular Hemoglobin 28.3 pg (28.0-33.3); Mean Corpuscular Volume 92.9 fL (83.0-100.0); Mean Platelet Volume 11.4 fL (9.4-12.4); Monocytes # 0.2 K/mcL (0.0-1.3); Neutrophils # 0.9 K/mcL (1.6-8.9); Platelet Count 242 K/mcL (140-400); Red Blood Count 3.39 M/mcL (3.82-4.97); Segmented Neutrophils % 31.7 %
[2017-02-13 09:44] LABS: BUN/Creatinine Ratio 7 (6-26); Calcium 7.9 mg/dL (8.6-10.8); Carbon Dioxide 29 mEq/L (19-29); Chloride 107 mEq/L (98-109); Glucose 118 mg/dL (70-99); Osmolality,Calculated 290 (280-300); Potassium 3.6 mEq/L (3.5-4.5); Sodium 141 mEq/L (136-145); eGFR For African Americans > 60 (> 60); eGFR For Non-African Americans > 60 (> 60)
[2017-02-13 09:45] LABS: Blood Urea Nitrogen 4 mg/dL (7-20)
[2017-02-13 10:01] LABS: Platelet Estimate Normal (Normal)
[2017-02-13] MEDS: Ertapenem 1,000 MG in 0.9 % Sodium Chloride Mini Bag 100 ML IVPB SCH (10:26)
[2017-02-13] MEDS: *HR* Heparin 5,000 UNIT/ML VIAL SQ SCH (10:32)
[2017-02-13] MEDS: Folic Acid 1 MG TABLET PO SCH (10:32)
[2017-02-13 10:42] VITALS: BP 149/67
--- NOTE | 2017-02-13 11:06 | General Surgery Progress Note ---
Date of Encounter: 02/13/17 Time of Encounter: 10:45 - Assessment and Plan (1) Status post cholecystectomy Current Visit: Yes Status: Acute Lap moy 01/26/2017 ERCP and stent placement 02/09/2017 JUDAH drainage output clearing and is serous today No need for imaging at this time as the patient is clinically improving with treatment May transition to PO augmentin and discharge from a surgical standpoint Blood cultures with no growth at this time Regular diet (2) Leukopenia Current Visit: Yes Status: Chronic May transition to PO augmentin Continue JUDAH drain Qualifiers: Leukopenia type: other Qualified Code(s): D72.818 - Other decreased white blood cell count Subjective Patient reports: no new complaints, feels better, tolerating a regular diet, voiding w/o difficulty, flatus, bowel movement, afebrile Objective Vital Signs - Last 8 Hours Temp Pulse Resp BP Pulse Ox 02/13/17 10:41 98.2 F 82 14 149/67 97 02/13/17 06:38 98.3 F 85 14 146/74 94 02/13/17 04:45 98.4 F 81 16 128/65 96 Intake and Output 02/12/17 02/13/17 02/13/17 23:59 07:59 15:59 Intake Total 1490 / 1490 1000 / 1000 610 / 610 Output Total 300 / 300 850 / 850 300 / 300 Balance 1190 / 1190 150 / 150 310 / 310 Intake: IV Fluids 1250 / 1250 1000 / 1000 250 / 250 0.9 % Sodium Chloride 1,000 ML 1000 / 1000 1000 / 1000 @ 75 mls/hr IVC .[id number] MARIA L Rx #:[id number] Vancocin 750 MG In Dextrose 5% 250 / 250 250 / 250 250 ML @ 250 mls/hr IVPB Q12H MARIA L Rx#:[id number] Oral 240 / 240 0 / 0 360 / 360 Output: Urine 300 / 300 850 / 850 300 / 300 Wound Drainage 0 / 0 0 / 0 0 / 0 Right Upper Abdomen 0 / 0 0 / 0 0 / 0 Other: Meal Dinner Breakfast Percent of Meal Consumed 100% 100% # Voids 1 Weight 53.3 kg Patient Weight 02/13/17 23:59 Weight 53.3 kg - General physical appearance well developed, well nourished, no distress, no pain - Eyes normal ocular movement - ENT normal mucosa, atraumatic, normocephalic - Neck Neck exam: trachea midline - Respiratory normal respiratory effort, clear to auscultation - Cardiovascular Cardiovascular exam: Present: RRR - Abdomen Abdomen: Present: bowel sounds present, soft, non tender, wound (JUDAH drain in the RUQ to bulb suction with a small amount of serous drainage noted) - Incision Incision: Present: clean and dry, intact - Neurologic CN 2-12 grossly intact - Musculoskeletal normal gait, normal posture - Psychiatric oriented to time, oriented to person, oriented to place, speech is normal, memory intact - Labs 02/13/17 09:17 02/13/17 09:17 Diabetes panel 02/13/17 Range/Units 09:17 Sodium 141 (136-145) mEq/L Potassium 3.6 (3.5-4.5) mEq/L Chloride 107 (98-109) mEq/L Carbon Dioxide 29 (19-29) mEq/L BUN 4 L (7-20) mg/dL Creatinine 0.60 (0.57-1.11) mg/dL Glucose 118 H (70-99) mg/dL Calcium 7.9 L (8.6-10.8) mg/dL Calcium panel 02/13/17 Range/Units 09:17 Calcium 7.9 L (8.6-10.8) mg/dL Pituitary panel 02/13/17 Range/Units 09:17 Sodium 141 (136-145) mEq/L Potassium 3.6 (3.5-4.5) mEq/L Chloride 107 (98-109) mEq/L Carbon Dioxide 29 (19-29) mEq/L BUN 4 L (7-20) mg/dL Creatinine 0.60 (0.57-1.11) mg/dL Glucose 118 H (70-99) mg/dL Calcium 7.9 L (8.6-10.8) mg/dL Adrenal panel 02/13/17 Range/Units 09:17 Sodium 141 (136-145) mEq/L Potassium 3.6 (3.5-4.5) mEq/L Chloride 107 (98-109) mEq/L Carbon Dioxide 29 (19-29) mEq/L BUN 4 L (7-20) mg/dL Creatinine 0.60 (0.57-1.11) mg/dL Glucose 118 H (70-99) mg/dL Calcium 7.9 L (8.6-10.8) mg/dL Consult Discharge Plan - Plan Additional Instructions: #1 may shower, no tub bath for 2 weeks #2 wash incisions with soap and water and pat dry daily #3 no lifting, pushing, pulling more than 15 pounds for the next 2 weeks #4 no driving until off narcotics for 24 hours and able to safely react in the car #5 may climb stairs JUDAH drain- cleanse around drain with soap and water daily and the shower, apply split 4 x 4 gauze and tape to secure daily. Empty drain once daily and as needed and record outputs. Bring to follow-up appointment on 02/19/2017. Referrals: John Real Jr, MD [Primary Care Provider] - 02/20/17 10:00 am (Please follow up with your primary care provider) Angelika Lim CNP [Advanced Practice Nurse] - 02/19/17 2:00 pm Pete Sandhu MD [Partnered Physician] - 03/05/17 3:50 pm ()
--- NOTE | 2017-02-13 13:28 | Discharge Summary ---
<Abdoulaye Aguero - Last Filed: 02/13/17 13:41> Date of Encounter: 02/13/17 Time of Encounter: 13:09 - Discharge Diagnosis (1) Intra-abdominal infection Priority: Primary Status: Acute (2) Sepsis Priority: Secondary Status: Resolved Qualifiers: Sepsis type: sepsis due to unspecified organism Qualified Code(s): A41.9 - Sepsis, unspecified organism (3) Bile leak, postoperative Priority: Secondary Status: Acute (4) Abdominal pain Priority: Secondary Status: Acute Qualifiers: Abdominal location: generalized Qualified Code(s): R10.84 - Generalized abdominal pain (5) Rheumatoid arthritis Priority: Secondary Status: Chronic Qualifiers: Rheumatoid arthritis location: multiple sites Rheumatoid factor presence: unspecified presence Qualified Code(s): M06.9 - Rheumatoid arthritis, unspecified (6) DVT prophylaxis Priority: Secondary Status: Acute - Discharge Medications Prescriptions: Amoxicillin/Clavulanate [Augmentin] 500 mg PO BIDWM #10 tablet Home Medications: Ergocalciferol (VITAMIN D2) [Vitamin D2] 50,000 unit PO QWEEK 09/02/16 [History] Ferrous Sulfate [Iron] 325 mg PO DAILY 09/02/16 [History] Folic Acid 1 mg PO DAILY 09/02/16 [History] Methotrexate [Otrexup] 15 mg PO MALLOY 09/02/16 [History] Pantoprazole Sodium 40 mg PO DAILY 09/02/16 [History] Naproxen [Naprosyn] 500 mg PO BID 01/26/17 [History] Docusate [Colace] 100 mg PO BID #60 capsule 01/30/17 [Rx] HYDROcodone/Acet 7.5/325 mg [[place] 7.5-325 mg] 1 tab PO Q4H PRN #42 tablet 01/30 [Rx] Acetaminophen [Tylenol] 650 mg PO Q6HR PRN tablet 02/13/17 [Rx] Amoxicillin/Clavulanate [Augmentin] 500 mg PO BIDWM #10 tablet 02/13/17 [Rx] Allergies/Adverse Reactions: 3 Allergy/AdvReac Type Severity Reaction Status Date / Time piperacillin [From Zosyn] Allergy Hives Verified 02/11/17 08:57 Sulfa (Sulfonamide Allergy Rash Verified 02/11/17 08:57 Antibiotics) tazobactam [From Zosyn] Allergy Hives Verified 02/11/17 08:57 Date of admission: 02/10/17 15:35 Primary care physician: John Real Jr, MD Consults: 02/10/17 15:42 Consult to Wound Care [CONS] Routine Reason for Consult: erythema and skin breakdown around jamel drain site Call Completed: No 02/11/17 07:53 Consult to Surgery [CONS] Routine Consulting Provider: [facility] Reason for Consult: s/p cholecystectomy, admitting team talked to Dr. Mckeon already Time Notified: 07:53 Call Completed: Yes - Patient Status Disposition: Home, Self-Care Condition: Good Functional capacity at discharge: independent ambulation Overall status at discharge: patient is progressing back to baseline - Discharge Instructions Follow Up With: John Real Jr, MD [Primary Care Provider] - 02/20/17 10:00 am (Please follow up with your primary care provider) Angelika Lim CNP [Advanced Practice Nurse] - 02/19/17 2:00 pm Pete Sandhu MD [Partnered Physician] - 03/05/17 3:50 pm () Additional Instructions: #1 may shower, no tub bath for 2 weeks #2 wash incisions with soap and water and pat dry daily #3 no lifting, pushing, pulling more than 15 pounds for the next 2 weeks #4 no driving until off narcotics for 24 hours and able to safely react in the car #5 may climb stairs JAMEL drain- cleanse around drain with soap and water daily and the shower, apply split 4 x 4 gauze and tape to secure daily. Empty drain once daily and as needed and record outputs. Bring to follow-up appointment on 02/19/2017. Plan: follow up with PCP within one week of discharge. follow up with general surgery . follow up with GI- recommended repeat ERCP with stent removal in two months. return to emergency department if you develop fever, chills, chest pain, shortness of breath, or severe abdominal pain. take all antibiotics as prescribed - Diet and Activity Activity: increase activity as tolerated Diet: advance to your usual diet Hospital course: Ms. Valenzuela is a 76 year old female with PMHx of RA, GERD, hypothyroidism, history of kidney stones, history of pancreatitis. Patient had cholecystectomy with JAMEL drain placement earlier this month by Dr. Mckeon. Post op, there was concern for bile leak, so she had ERCP with biliary sphincterotomy and placement of temporary stent at common bile duct on 01/30/17. At that time, repeat ERCP with stent removal was recommended in two months. She presented to [facility] on the with anemia, fever. She was transfused two units blood at [facility]. CT abdomen at [facility] showed low density fluid collection near the gallbladder fossa with biliary stent and surgical drains in place. She was placed on antibiotics for presumed abdominal infection. After transfer to [facility], patient was treated with broad spectrum antibiotics until blood cultures and cultures from JAMEL drain were finalized. She was discharged based on sensitivity report from her cultures. patient continued to improve during her hospitalization. Patient had anemia work up done while hospitalized. Consider further workup/iron supplementation outpatient once her infection is resolved. Patient felt drastically better and was stable on day of discharge. Plan: follow up with PCP within one week of discharge. Consider iron supplementation once infection has resolved. follow up with general surgery . follow up with GI- recommended repeat ERCP with stent removal in two months. return to emergency department if you develop fever, chills, chest pain, shortness of breath, or severe abdominal pain. take all antibiotics as prescribed - Time Spent with Patient Total time spent providing and/or coordinating discharge services: - Constitutional Vitals: Temp Pulse Resp BP Pulse Ox 98.2 F 82 14 149/67 97 02/13/17 10:41 02/13/17 10:41 02/13/17 10:41 02/13/17 10:41 02/13/17 10:41 General appearance: Present: A&O X 3, pleasant, no acute distress, answers questions appropriately - Head Head exam: Present: atraumatic, normocephalic - Neck Neck exam general surgery: Present: supple, trachea midline - Respiratory Respiratory exam: Present: CTAB - Cardiovascular Cardiovascular exam: Present: RRR, +S1, +S2 - GI/Abdominal GI/Abdominal exam: Present: distended, soft Additional comments: surgical scars clean, dry, intact. usual post op tenderness present. - Extremities Exam Additional comments: severe ulnar deviation present in digits of both upper and lower extremities. - Neurological Exam Neurological exam: Present: alert, oriented X3, no focal deficits - Psychiatric Psychiatric exam: Present: normal affect, normal mood - Skin Skin exam: Present: intact <DavidRico garay - Last Filed: 02/13/17 18:01> Date of Encounter: 02/13/17 Date of admission: 02/10/17 15:35 Primary care physician: John Real Jr, MD Consults: 02/10/17 15:42 Consult to Wound Care [CONS] Routine Reason for Consult: erythema and skin breakdown around jamel drain site Call Completed: No 02/11/17 07:53 Consult to Surgery [CONS] Routine Consulting Provider: [facility] Reason for Consult: s/p cholecystectomy, admitting team talked to Dr. Mkceon already Time Notified: 07:53 Call Completed: Yes Hospital course: Ms. Valenzuela is a 76 year old female - Time Spent with Patient Total time spent providing and/or coordinating discharge services: - Constitutional Vitals: Temp Pulse Resp BP Pulse Ox 98.2 F 82 14 149/67 97 02/13/17 10:41 02/13/17 10:41 02/13/17 10:41 02/13/17 10:41 02/13/17 10:41 - Attending Attestation I examined this patient and my medical decision-making was reviewed with the Resident Physician, Dr. Aguero. I agree with the documented findings, disposition and treatment plan as described except to the extent set forth below. I have independently obtained history and examined the patient and my findings are summarized below: Patient is distress. abdomen is soft. jamel drain with small amount of clear bile. I discussed the case with surgery. We will discharge the patient home with Augmentin. She will follow-up in clinic next week.
[2017-02-13] MEDS ORDERED: Aminoglycoside Consult 1 EACH MC ONE (16:29)
== END 2017-02-13 16:30 | disposition home or self-care (01) | DRG 862 ==
LOC: 2NNU 15:35 → 3ANU 02-12 16:29
PROVIDERS: ADMIT Family Medicine; ATTEND Internal Medicine

== ENCOUNTER 2021-03-19 11:08 | Inpatient (IN) ==
[2021-03-19 12:45] LABS: Bacteria,Urine Few per hpf (None-Few); Bilirubin,Urine Negative (Negative); Blood,Urine Trace (Negative); Clarity,Urine Clear (Clear); Color,Urine Light-Yellow (Yellow); Glucose,Urine (UA) Normal (Normal); Hyaline Casts,Urine Few per lpf (None Seen); Ketones,Urine Negative (Negative); Leukocyte Esterase,Urine Negative (Negative); Mucus,Urine Few per lpf (None-Few); Nitrite,Urine Negative (Negative); PH,Urine 6.5 pH Units (5.0-8.0); Protein,Urine Trace mg/dL (Neg-Trace); RBC,Urine 0-3 per hpf (0-3); Specific Gravity,Urine 1.017 (1.010-1.025); Squamous Epithelial Cell,Urine Few per hpf (None-Few); Urobilinogen,Urine Normal (Normal); WBC,Urine 0-3 per hpf (0-3)
[2021-03-19 12:51] LABS: Basophils % 0.6 %; Eosinophils # 0.1 K/mcL (0.0-0.6); Hematocrit 34.3 % (35.3-44.9); Hemoglobin 10.6 g/dL (11.5-15.4); Immature Granulocytes % 0.3 % (0-4); Lymphocytes # 1.4 K/mcL (0.6-4.6); Lymphocytes % 40.2 %; Mean Corpuscular HGB Conc 30.9 g/dL (31.6-35.5); Mean Corpuscular Hemoglobin 28.3 pg (28.0-33.3); Mean Corpuscular Volume 91.5 fL (83.0-100.0); Mean Platelet Volume 12.5 fL (9.4-12.4); Monocytes # 0.2 K/mcL (0.0-1.3); Monocytes % 5.2 %; Neutrophils # 1.7 K/mcL (1.6-8.9); Platelet Count 175 K/mcL (140-400); Red Blood Count 3.75 M/mcL (3.82-4.97); Red Cell Distribution Width 16.4 % (11.5-14.5); Segmented Neutrophils % 49.7 %; White Blood Count 3.5 K/mcL (4.3-11.1)
[2021-03-19 13:06] LABS: BUN/Creatinine Ratio 30 (6-26); Blood Urea Nitrogen 21 mg/dL (8-23); Calcium 9.4 mg/dL (8.6-10.3); Carbon Dioxide 23 mEq/L (23-29); Chloride 105 mEq/L (98-107); Glucose 97 mg/dL (70-105); Osmolality,Calculated 289 (280-300); Potassium 3.9 mEq/L (3.5-5.1); Sodium 138 mEq/L (136-145); eGFR For African Americans > 60 (> 60); eGFR For Non-African Americans > 60 (> 60)
[2021-03-19] MEDS ORDERED: Morphine Sulfate 2 MG/ML SYRINGE IVP ONE (13:58)
[2021-03-19] MEDS ORDERED: Ondansetron 4 MG/2 ML VIAL IVP ONE (13:58)
[2021-03-19] MEDS ORDERED: Mag Hydrox/Al Hydrox/Simeth 30 ML UDC PO PRN (17:46)
[2021-03-19] MEDS ORDERED: Naloxone 0.4 MG/ML INJ IVP PRN (17:46)
[2021-03-19] MEDS ORDERED: Melatonin 3 MG TABLET PO PRN (17:46)
[2021-03-19] MEDS ORDERED: Ondansetron ODT 4 MG TAB.RAPDIS SL PRN (17:46)
[2021-03-19] MEDS ORDERED: MOM Conc 10 ML UD.LIQ PO PRN (17:46)
[2021-03-19] MEDS ORDERED: methylPREDNISolone 4 MG TABLET PO ONE (17:49)
[2021-03-20 03:17] LABS: Hematocrit 33.3 % (35.3-44.9); Hemoglobin 10.4 g/dL (11.5-15.4); Mean Corpuscular HGB Conc 31.2 g/dL (31.6-35.5); Mean Corpuscular Hemoglobin 28.7 pg (28.0-33.3); Mean Corpuscular Volume 91.7 fL (83.0-100.0); Mean Platelet Volume 12.9 fL (9.4-12.4); Platelet Count 177 K/mcL (140-400); Red Blood Count 3.63 M/mcL (3.82-4.97); Red Cell Distribution Width 16.2 % (11.5-14.5); White Blood Count 2.1 K/mcL (4.3-11.1)
[2021-03-20 03:34] LABS: BUN/Creatinine Ratio 29 (6-26); Blood Urea Nitrogen 22 mg/dL (8-23); Calcium 9.2 mg/dL (8.6-10.3); Carbon Dioxide 22 mEq/L (23-29); Chloride 104 mEq/L (98-107); Glucose 177 mg/dL (70-105); Osmolality,Calculated 288 (280-300); Potassium 4.4 mEq/L (3.5-5.1); Sodium 135 mEq/L (136-145); eGFR For African Americans > 60 (> 60); eGFR For Non-African Americans > 60 (> 60)
[2021-03-20] MEDS: *HR* Enoxaparin 40 MG/0.4 ML SYRINGE SQ SCH (05:58)
[2021-03-20] MEDS: *HR* OxyCODONE Immed Rel 5 MG TABLET PO PRN (15:10)
[2021-03-21] MEDS: *HR* OxyCODONE Immed Rel 5 MG TABLET PO PRN ×3 (05:03→22:25)
[2021-03-21] MEDS: *HR* Enoxaparin 40 MG/0.4 ML SYRINGE SQ SCH (05:03)
[2021-03-21] MEDS: predniSONE 20 MG TABLET PO SCH (16:23)
[2021-03-21 18:39] LABS: Basophils % 0.8 %; Eosinophils # 0.2 K/mcL (0.0-0.6); Eosinophils % 3.3 %; Hematocrit 34.3 % (35.3-44.9); Hemoglobin 10.6 g/dL (11.5-15.4); Immature Granulocytes % 0.4 % (0-4); Immature Platelets 2.7 % (1.1-6.1); Lymphocytes % 38.3 %; Mean Corpuscular HGB Conc 30.9 g/dL (31.6-35.5); Mean Corpuscular Hemoglobin 28.2 pg (28.0-33.3); Mean Corpuscular Volume 91.2 fL (83.0-100.0); Monocytes # 0.3 K/mcL (0.0-1.3); Neutrophils # 2.5 K/mcL (1.6-8.9); Platelet Count 183 K/mcL (140-400); Red Blood Count 3.76 M/mcL (3.82-4.97); Red Cell Distribution Width 16.6 % (11.5-14.5); Segmented Neutrophils % 51.2 %
[2021-03-21 18:49] LABS: Lymphocytes # 1.8 K/mcL (0.6-4.6); White Blood Count 4.8 K/mcL (4.3-11.1)
[2021-03-21 19:11] LABS: Hypochromasia Present (Not Present); Large Platelets Present (Not Present)
[2021-03-22 02:38] LABS: Basophils % 0.5 %; Eosinophils # 0.1 K/mcL (0.0-0.6); Eosinophils % 3.3 %; Hematocrit 31.7 % (35.3-44.9); Hemoglobin 9.8 g/dL (11.5-15.4); Immature Granulocytes % 0.8 % (0-4); Lymphocytes # 1.7 K/mcL (0.6-4.6); Lymphocytes % 43.2 %; Mean Corpuscular HGB Conc 30.9 g/dL (31.6-35.5); Mean Corpuscular Hemoglobin 28.3 pg (28.0-33.3); Mean Corpuscular Volume 91.6 fL (83.0-100.0); Mean Platelet Volume 12.2 fL (9.4-12.4); Monocytes # 0.3 K/mcL (0.0-1.3); Monocytes % 6.5 %; Neutrophils # 1.8 K/mcL (1.6-8.9); Platelet Count 178 K/mcL (140-400); Red Blood Count 3.46 M/mcL (3.82-4.97); Red Cell Distribution Width 16.7 % (11.5-14.5); Segmented Neutrophils % 45.7 %
[2021-03-22 02:56] LABS: BUN/Creatinine Ratio 31 (6-26); Blood Urea Nitrogen 23 mg/dL (8-23); Carbon Dioxide 24 mEq/L (23-29); Chloride 103 mEq/L (98-107); Glucose 119 mg/dL (70-105); Osmolality,Calculated 287 (280-300); Sodium 136 mEq/L (136-145); eGFR For African Americans > 60 (> 60); eGFR For Non-African Americans > 60 (> 60)
[2021-03-22] MEDS: *HR* Enoxaparin 40 MG/0.4 ML SYRINGE SQ SCH (05:14)
[2021-03-22] MEDS ORDERED: NON-FORMULARY MEDICATION 1 EACH EACH (Pantoprazole Sodium 40 MG Tablet.Dr) PO SCH (09:00)
[2021-03-22] MEDS: Metoprolol XL (24 HR) Succ 25 MG TAB.ER.24H PO SCH (10:37)
[2021-03-22] MEDS: predniSONE 20 MG TABLET PO SCH (10:39)
[2021-03-23] MEDS: *HR* Enoxaparin 40 MG/0.4 ML SYRINGE SQ SCH (06:33)
[2021-03-23 07:11] VITALS: O2SAT 97
[2021-03-23] MEDS: Metoprolol XL (24 HR) Succ 25 MG TAB.ER.24H PO SCH (07:12)
[2021-03-23 10:36] VITALS: BP 116/76; PULSE 91; TEMP 98.5
[2021-03-23] MEDS: *HR* OxyCODONE Immed Rel 5 MG TABLET PO PRN (11:29)
[2021-03-23 14:23] LABS: Adenovirus Not Detected (Not Detect); Bordetella Pertussis Not Detected (Not Detect); Chlamydophila pneumoniae Not Detected (Not Detect); Coronavirus 229E Not Detected (Not Detect); Coronavirus HKU1 Not Detected (Not Detect); Coronavirus NL63 Not Detected (Not Detect); Coronavirus OC43 Not Detected (Not Detect); Human Metapneumovirus Not Detected (Not Detect); Human Rhinovirus/Enterovirus Not Detected (Not Detect); Influenza A Subtype 2009 H1 Not Detected (Not Detect); Influenza B Not Detected (Not Detect); Mycoplasma pneumoniae Not Detected (Not Detect); Parainfluenza Virus 1 Not Detected (Not Detect); Parainfluenza Virus 2 Not Detected (Not Detect); Parainfluenza Virus 3 Not Detected (Not Detect); Parainfluenza Virus 4 Not Detected (Not Detect); Respiratory Syncytial Virus Not Detected (Not Detect); SARS-CoV-2 Not Detected (Not Detect)
== END 2021-03-23 16:15 | DRG 544 ==
LOC: EMEROOARM 11:08 → 3BNU 11:08 → SUATTDRO 14:42 → 3BNU 15:22 → SUATTDRO 03-21 15:56
PROVIDERS: ADMIT Internal Medicine; ATTEND Internal Medicine